=== PATIENT | female | born 1940 | race Caucasian/White ===

== ENCOUNTER 2017-02-09 17:16 | Inpatient (IN) | payer MEDICARE, OTHER ==
[~2017-02-09 17:16] MED LIST: ISOVUE-370 76%-LOCM 1 ML ONE
[2017-02-09] MEDS ORDERED: Albuterol Sulfate 2.5 mg/3 ml Neb ONE (17:45)
[2017-02-09] MEDS ORDERED: Albuterol Sulfate 2.5 mg/0.5 ml Neb ONE (17:45)
[2017-02-09] MEDS ORDERED: Dexamethasone 10 MG/ML VIAL ONE (17:48)
[2017-02-09 17:52] LABS: Oxyhemoglobin 93.1 % (94.0-97.0); Sodium 142 mmol/L (135-148)
[2017-02-09 17:54] LABS: Mode NRB; Vent NO
[2017-02-09] MEDS ORDERED: Magnesium 2 GM/NS 0.9% 50 ML 2 GM in Premix Bag 1 BAG IVPB ONE (18:00)
[2017-02-09 18:18] LABS: PTT 29.4 SEC (22.9-36.1)
[2017-02-09 18:22] LABS: Prothrombin Time 12.7 SEC (12.0-14.7)
[2017-02-09 18:34] LABS: #Eosinphils 0.2 thou/uL (0.0-0.7); #Lymphocytes 0.9 thou/uL (1.20-3.40); #Monocytes 0.6 thou/uL (0.11-0.59); %Basophils 0.4 % (0.0-1.0); %Eosinophils 1.9 % (0.0-10.0); %Lymphocytes 10.2 % (21.0-51.0); Hematocrit 39.4 % (36.0-47.0); Mean Platelet Volume 9.3 fL (7.4-10.4); Red Blood Cell (RBC) Count 4.45 mill/uL (4.20-5.40); White Blood Cell (WBC) Count 8.7 thou/uL (4.8-10.8)
[2017-02-09 18:38] LABS: Troponin I Less than 0.010 ng/mL (< 0.028)
[2017-02-09 19:39] LABS: Oxyhemoglobin 88.8 % (94.0-97.0); Sodium 141 mmol/L (135-148)
[2017-02-09 19:41] LABS: Modified Allen's Test POSITIVE; Vent YES
[2017-02-09 19:44] LABS: ALT (SGPT) 23 U/L (8-55); AST (SGOT) 46 U/L (5-34); Alkaline Phosphatase 84 U/L (40-150); Anion Gap 15 mmol/L (10-20); BUN (Urea Nitrogen) 21 mg/dL (9.8-20.1); Bilirubin, Total 0.4 mg/dL (0.2-1.2); CK (CPK) 24 U/L (29-168); Calc. Creatinine Clearance 0 mL/min (70-130); Calcium 8.5 mg/dL (7.8-10.44); Carbon Dioxide 34 mmol/L (23-31); Chloride 96 mmol/L (98-107); Estimated GFR-MDRD 50; Globulin 2.8 g/dL (2.4-3.5); Lipase Less than 4 U/L (8-78)
[2017-02-09] MEDS ORDERED: Water For Inject, Bacteriostat 30 ML ONE (19:44)
[2017-02-09] MEDS ORDERED: Vecuronium 10 MG VIAL ONE (19:44)
[2017-02-09] MEDS ORDERED: Fentanyl 20 MCG/ML 250 ML ONE (20:10)
[2017-02-09 20:16] LABS: PIP 11 cmH2O; Spontaneous Rate 26 min
[2017-02-09 20:30] LABS: Bilirubin Negative (Negative); Blood, Urine Negative (Negative); Glucose, Urine (Dipstick) Negative (Negative); Ketone, Urine Negative (Negative); Nitrite Negative (Negative); Protein, Urine (Dipstick) Trace mg/dL (Neg-Trace); Urobilinogen 0.2 mg/dL (0.2-1.0)
[2017-02-09 20:33] LABS: Bacteria/HPF 4+ HPF (None Seen); Hyaline Casts/LPF 7-10 HYALINE CAST LPF (0-3 Hyaline)
[2017-02-09 20:41] LABS: RBC/HPF 0-3 HPF (0-3)
--- NOTE | 2017-02-09 21:10 | RAD ---
ONE VIEW CHEST: HISTORY: Dyspnea. COMPARISON: 06/13/2014 FINDINGS: Stable left-sided defibrillator. Atherosclerosis of the aorta is noted. The heart is enlarged. The pulmonary vessels are slightly prominent. Diminished lung volumes. There are pleural and parenchym al changes in the left lung base. Patchy interstitial opacity in the right lung base. No pneumothor ax. Chronic changes to both shoulders. IMPRESSION: Pleural and parenchymal changes in the left lung base. Interstitial opacity in the right lung base. Continued surveillance. POS: [facility]
[2017-02-09 21:14] LABS: Oxyhemoglobin 97.8 % (94.0-97.0); Sodium 140 mmol/L (135-148)
--- NOTE | 2017-02-09 21:46 | RAD ---
ONE VIEW CHEST: HISTORY: Dyspnea. Status post intubation. COMPARISON: 02/09/2017 FINDINGS: Portable supine chest radiograph demonstrates an endotracheal and nasogastric tube. Stable left-side d defibrillator. Persistent opacification of the left lung base. Patchy interstitial opacities thro ughout the lung parenchyma. IMPRESSION: Interval placement of endotracheal and nasogastric tube. Otherwise, no change. POS: [facility]
[2017-02-09 22:00] LABS: Mechanical Tidal Volume 500 ml; Mode SIMV; Modified Allen's Test POSITIVE; Pressure Support 10 cmH2O; Spontaneous Rate 20 min; Vent YES
--- NOTE | 2017-02-09 22:07 | CT ---
EXAM: CT ANGIOGRAM OF THE CHEST 02/09/17 HISTORY: Hypoxia. Shortness of breath. Patient is 58% on room air. COMPARISON: None. TECHNIQUE: CT angiogram of the chest is performed in the axial plain. Coronal and bilateral oblique three dimens ional reformatted images are submitted for interpretation. FINDINGS: Trachea and central bronchi are patent. There are patchy ground glass opacities predominantly in the lower lobes. Small bilateral effusions. Left greater than right consolidation likely due to bibasilar atelectasis or pneumonia. Additional consolidation with air bronchograms is noted in the middle lobe . No pneumothorax. Endotracheal and nasogastric tube are identified. The visualized upper solid organs are unremarkable. No mediastinal mass, lymphadenopathy, or hematoma. Heart is enlarged. Coronary calcifications and ca lcification in the aortic valve is noted. Visualized aorta does not demonstrate an aneurysm. No peria ortic fat stranding. Adequate contrast opacification of the pulmonary arterial system to the level of the segmental arteri es. No filling defect to suggest thromboembolism. Osteoblastic or osteolytic lesions. IMPRESSION: 1. No evidence of pulmonary artery embolism to the level of the segmental arteries. 2. Consolidation with air bronchograms of the middle lobe, right lower lobe and left lower lobe. Multilobar pneumonia or atelectasis should be considered. Small bilateral effusions are identified. 3. Cardiomegaly. POS: [facility]
--- NOTE | 2017-02-09 22:42 | PDOC.EVN ---
Event Note - Event Note Event Note: [id number] H&P Dictated 1. ACute hypercapneic respiratory failure 2. Pneumonia 3. HTN 4. barry plan;see orders
[2017-02-09] MEDS ORDERED: Lorazepam 2 MG/ML VIAL ONE (22:46)
[2017-02-09] MEDS ORDERED: Ondansetron HCl/PF 4 MG/2 ML Vial IVP PRN (23:17)
[2017-02-09] MEDS ORDERED: Sodium Chloride 0.9% 1,000 ML IV SCH (23:17)
[2017-02-09] MEDS ORDERED: Ondansetron ODT 4 MG TAB SL PRN (23:17)
[2017-02-09] MEDS ORDERED: hydrALAZINE 20 MG/ML VIAL SLOW IVP PRN (23:19)
[2017-02-09] MEDS ORDERED: Propofol 1,000 MG/100 ML VIAL IV PRN (23:20)
[2017-02-09] MEDS ORDERED: Fentanyl 20 MCG/ML 250 ML IVPB SCH (23:20)
[2017-02-09] MEDS ORDERED: DISCONTINUE PREVIOUS NARCOTIC PAIN MEDICATIONS AND BENZODIAZEPINES FS SCH (23:20)
[2017-02-09] MEDS ORDERED: Morphine 4 MG/ML VIAL IV PRN (23:21)
[2017-02-09 23:24] LABS: Mechanical Tidal Volume 500 ml; Mode SIMV; Pressure Support 10 cmH2O; Vent YES
[2017-02-09] MEDS: Sodium Chloride 0.9% 1,000 ML IV SCH ×2 (23:41→23:45)
[2017-02-09] MEDS: methylPREDNISolone Sod Succ/PF 125 MG/2 ML VIAL IVP SCH (23:50)
[2017-02-09] MEDS ORDERED: Vancomycin HCl 1.5 GM in Sodium Chloride 0.9% 250 ML 300 ML IVPB SCH (23:59)
[2017-02-10] MEDS: Azithromycin 500 MG in Sodium Chloride 0.9% 250 ML 250 ML IVPB SCH (01:27)
[2017-02-10] MEDS: Propofol 1,000 MG/100 ML VIAL IV PRN ×2 (01:27→09:32)
[2017-02-10] MEDS ORDERED: Cefepime 2 GM in Syringe 12.5 ML SLOW IVP SCH (04:00)
[2017-02-10] MEDS ORDERED: Dexamethasone 4 mg/ml Vial SLOW IVP SCH (05:00)
--- NOTE | 2017-02-10 05:38 | HP ---
DATE OF ADMISSION: 02/09/2017 CHIEF COMPLAINT: Respiratory failure. 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 History was obtained from the ED physician and from the ED nu rse as there are no family members available at this time. According to the ED physician, EMS was ca lled because the patient was having trouble breathing. Upon EMS arrival, the patient was found to be hypoxic with oxygen sats around 57%, so the patient was placed on the nasal cannula and brought to [facility] ER. In the ER, the patient was found to have hypoxic, so patient was initially placed on nonrebre ather and was transferred to home BiPAP. The patient was on BiPAP in the ER, respiratory distress. The patient became more lethargic, so patient was intubated at the ER. By the time I saw the patient , the patient is on vent support, so could not able to get much history. PAST MEDICAL HISTORY: As per HPI. PAST SURGICAL HISTORY: Per records, positive for bilateral cataract extraction, cholecystectomy, col ectomy, hernia repair, tonsillectomy, cardioversion, catheterization, AICD placement. MEDICATIONS: Reviewed. ALLERGIES: Reviewed. FAMILY HISTORY: Per chart, positive for congestive heart failure. SOCIAL HISTORY: No smoking, no alcohol, no drugs. REVIEW OF SYSTEMS: Unavailable from the patient as the patient is currently on the vent support. PHYSICAL EXAMINATION: CONSTITUTIONAL/VITAL SIGNS: At the time of H and P performed, blood pressure is 208/85, pulse ox 100 % on vent, respiratory rate 18. GENERAL: The patient is sedated. HEENT: Anterior nares patent. Oral cavity is positive for ET tube. NECK: Supple, no JVD. CARDIOVASCULAR SYSTEM: S1, S2 present. Regular rate and rhythm, no murmur, no rubs, no gallops. RESPIRATORY SYSTEM: Diminished breath sounds present bilaterally. Positive for rhonchi. No accesso ry muscle seen. GASTROINTESTINAL: Abdomen is soft, nontender, no guarding, no organomegaly, no masses felt. MUSCULOSKELETAL: No edema. CRANIAL NERVOUS SYSTEM: Awake, follows commands. Speech clear. RESPIRATORY: No wheezing, no rhonchi. GASTROINTESTINAL: Soft, nontender, no guarding, no organomegaly, no masses felt. MUSCULOSKELETAL: No edema. CRANIAL NERVE SYSTEM: Patient is lethargic, sedated, not following commands. PSYCHIATRIC: Could not able to access. INTEGUMENTARY: No obvious rashes seen. LABORATORY DATA: At the time of H and P performed, white count 8.7, hemoglobin 11.2, platelet count is 321. PT 12.7, INR 1. D-dimer 1.96. BMP shows sodium 140, potassium 4.7, chloride 96, CO2 of 34, BUN of 21, creatinine 1.08, troponin less than 0.010. BNP 121.7. Total protein 6, albumin 3.2. ASSESSMENT AND PLAN: The patient is a 76 years old female: 1. Acute respiratory failure, hypercapnic and hypoxic. We will go ahead and consult Pulmonary to ev aluate the patient. Continue vent support. We will check ABG. We will start patient on intravenous breathing treatments and intravenous steroids. 2. Acute chronic obstructive pulmonary disease exacerbation. Continue breathing treatments. Monito r respiratory status closely. 3. Hypertension. Monitor blood pressure. Continue blood pressure meds. We will start patient on p .r.n. hydralazine also. 4. Elevated D-dimer. CT chest was done in the ER, which was negative for pulmonary embolism, but po sitive for pneumonia and monitor patient closely. 5. Pneumonia. Plan to check flu test. Plan to start the patient on broad-spectrum antibiotics. Pl an to check Legionella, Strep pneumoniae and urinary antigen. The case was discussed with the patient. Patient is a FULL CODE.
[2017-02-10] MEDS: methylPREDNISolone Sod Succ/PF 125 MG/2 ML VIAL IVP SCH (05:49)
--- NOTE | 2017-02-10 07:39 | HP ---
DATE OF ADMISSION: 02/09/2017 CHIEF COMPLAINT: Dyspnea. HISTORY OF PRESENT ILLNESS: The patient is a 76-year-old female with past medical history of coronar y artery disease, respiratory failure, obstructive sleep apnea, diabetes mellitus type 2, hypertensio n, hyperlipidemia, atrial fibrillation, now came to the ER because of dyspnea. EMS was called, leslie horton of severe respiratory distress. Upon EMS arrival, the patient was found to have sats around 57%, so the patient was placed on the nonbreather and brought to the ER. In the ER, the patient was initi ally placed on the BiPAP, but the respiratory symptoms did not improve, so the patient was eventually intubated in the ER. The patient is currently on the vent support, not able to get much history. PAST MEDICAL HISTORY: As per HPI. PAST SURGICAL HISTORY: Per review of the chart, positive for hernia repair, colectomy, cholecystecto my, total knee arthroplasty, appendectomy. SOCIAL HISTORY: Per records, no smoking, no alcohol, no drugs. FAMILY HISTORY: Positive for heart problems. ALLERGIES: Reviewed. REVIEW OF SYSTEMS: Unavailable from the patient as the patient is currently on the vent support. PHYSICAL EXAMINATION: CONSTITUTIONAL/VITAL SIGNS: At the time of H&P performed, blood pressure is 207/85, pulse ox is 100% , heart rate 80. GENERAL: The patient is lethargic and in the vent support. HEENT: Anterior nares patent. Oral cavity is positive for ET tube. NECK: Supple, no JVD. CARDIOVASCULAR: S1, S2 present. Regular rate and rhythm, no murmurs, no rubs, no gallops. RESPIRATORY: Positive for rhonchi. Positive for wheezing. Positive for crackles. Diminished at th e bases. GASTROINTESTINIAL: Abdomen is soft, nontender, no guarding, no organomegaly. MUSCULOSKELETAL: No edema. CRANIAL NERVOUS SYSTEM: The patient is sedated and intubated, not following commands. PSYCHIATRIC: Not able to assess. LABORATORY DATA: At the time of H&P performed, white count 8.7, hemoglobin 11.2, platelet count is 3 21. INR 1.0. D-dimer 1.96. ABG showed pH 7.57, pCO2 35, pO2 516 on the vent support. BMP showed so dium 140, potassium 4.7, chloride 96, CO2 34, BUN 21, creatinine 1.08. UA positive for 11 to 20 WBCs . ASSESSMENT AND PLAN: The patient is a 76-year-old female. 1. Acute respiratory failure, hypercapnic and hypoxic. Continue vent support and monitor the patien t closely. Plan to consult Pulmonary to evaluate the patient. 2. Pneumonia. Plan to start the patient on broad spectrum antibiotics. Plan to check Legionella, S trep pneumoniae, and flu test also. We will follow the patient. 3. Hypertension. We will monitor blood pressure. Continue blood pressure medications. We will do p.r.n. hydralazine. 4. Diabetes mellitus type 2, monitor blood sugars with insulin sliding scale. 5. History of atrial fibrillation and chronic diastolic heart failure. Strict I's and O's. Monitor heart rate closely. The case was discussed in detail with the ED nurse and ED physician also, there is no family member a vailable at this time. We will monitor the patient closely.
[2017-02-10 07:59] LABS: Oxyhemoglobin 95.7 % (94.0-97.0); Sodium 141 mmol/L (135-148)
[2017-02-10 08:00] LABS: Mechanical Tidal Volume 450 ml; Mode SIMV.PSV; Modified Allen's Test POSITIVE; Pressure Support 10 cmH2O; Vent YES
[2017-02-10] MEDS: Enoxaparin Sodium 40 MG/0.4 ML SYRINGE SC SCH (09:31)
[2017-02-10] MEDS: Lorazepam 2 MG/ML VIAL SLOW IVP PRN ×2 (10:55→18:13)
--- NOTE | 2017-02-10 11:13 | CON ---
DATE OF CONSULTATION: 02/10/2017 HISTORY: The patient is a 76-year-old female who sees Dr. Blake, presented to the ER with progress dao respiratory failure, unresponsive to usual medication at home, neb treatments and noninvasive tiesha tilation. Progressive hypoxemia necessitated intubation as per the ER note. O2 sats were 58% on room air via E [facility], they brought her, went in the 80s and 90s. She was placed on BiPAP in the ER. Apparently she di d not tolerate it, became additionally agitated and hypoxic, was intubated. She is now on the vent. Numerous admissions to the hospital. PAST MEDICAL HISTORY: Past history of cardiac arrest with ventricular tachycardia requiring AICD in place, respiratory failure, renal failure, obstructive sleep apnea, diabetes, hypertension, COPD, obe sity, encephalopathy. PAST SURGICAL HISTORY: Extensively and well outlined including multiple surgeries, AICD 2014, append ix, knee, tonsils, hernia, gallbladder, colectomy, cataracts. MEDICATIONS FROM HOME: Includes presumed prednisone 10, hydralazine 25, inhalers, Singulair 10, meto prolol 50, eye drops, Imdur 30, DuoNebs, Cymbalta 60, Diamox 250, Xanax. ALLERGIES: URMILA, CODEINE and SULFA. REVIEW OF SYSTEMS: Unobtainable. PHYSICAL EXAMINATION: VITAL SIGNS: Blood pressure 129/40, respirations 18. She is sedated on Diprivan and fentanyl. The nurse was told to decrease her sedation. CHEST: Decreased breath sounds, no wheezing. CARDIAC: Normal S1-S2. No gallops. ABDOMEN: Soft, no masses. LABORATORY: PO2 is 77, pCO2 34.45 on a rate of 14, 30%, 450 tidal volume, PEEP of 5. Urine shows so me UTI. X-ray was otherwise no acute infiltrates were seen. White count 8000, H&H 11 and 39, platelet count 321. Chemistry profile shows unremarkable values, no rmal BUN and creatinine. BNP is 128. IMPRESSION: 1. Acute on chronic respiratory failure. 2. Severe deconditioning. 3. Obesity. PLAN: Continue steroids, neb treatments, supportive care. Wean when stable. Probably start nutriti on in the next 24-48 hours. I will follow. Forty-five minute critical care time. Notify Dr. Blake.
--- NOTE | 2017-02-10 15:16 | PDOC.PN ---
- Subjective Encounter Start Date: 02/10/17 Encounter Start Time: 15:00 Subjective: f/u for acute resp failure due to multilobar PNA. Currently on mech vent -: tx with Zithromax, Cefepime and Vancomycin. No new events reported. - Objective MAR Reviewed: Yes Vital Signs & Weight: Vital Signs (12 hours) Temp Pulse Resp BP Pulse Ox 02/10/17 14:42 76 130/42 L 02/10/17 14:40 72 15 98 02/10/17 12:00 15 02/10/17 11:13 81 132/50 L 02/10/17 11:12 82 18 96 02/10/17 08:00 99.2 F 76 14 99 02/10/17 07:00 99.2 F 02/10/17 06:51 75 125/42 L 02/10/17 06:49 73 15 99 02/10/17 05:00 99.8 F H 02/10/17 04:00 97.9 F 02/10/17 03:31 14 Weight Admit Weight 187 lb 9.6 oz Weight 187 lb 9.6 oz Most Recent Monitor Data Heart Rate from ECG 75 NIBP 130/40 NIBP BP-Mean 82 Respiration from ECG 15 SpO2 98 I&O: 02/09/17 02/10/17 02/11/17 06:59 06:59 06:59 Intake Total 781.2 0 Output Total 2240 180 Balance -1458.8 -180 Result Diagrams: 02/09/17 18:03 02/09/17 19:08 Radiology Reviewed by me: Yes (PCXR - lines/tubes in place, patchy infiltrates diffusely) EKG Reviewed by me: Yes (Tele - A-fib in 70's) Phys Exam - Physical Examination Constitutional: NAD sedate on mech vent ETT/NGT in place HEENT: oral pharynx no lesions Neck: no JVD, supple diminished in bases Respiratory: no wheezing Cardiovascular: irregular Gastrointestinal: soft, non-tender, no distention, positive bowel sounds Musculoskeletal: no edema, pulses present sedate on mech ventilation Skin: normal turgor, cap refill <2 seconds Deviation from normal: Bains in place with sade urine Dx/Plan (1) Acute and chronic respiratory failure ([id number]) Code(s): J96.20 - ACUTE AND CHR RESP FAILURE, UNSP W HYPOXIA OR HYPERCAPNIA Status: Acute Qualifiers: Respiratory failure complication: hypoxia and hypercapnia Qualified Code(s) : J96.21 - Acute and chronic respiratory failure with hypoxia; J96.22 - Acute and chronic respiratory failure with hypercapnia; J96.22 - Acute and chronic respiratory failure with hypercapnia; J96.22 - Acute and chronic respiratory failure with hypercapnia Comment: Continue SIMV and wean as clinically indicated, Solumedrol 40mg IV q6h , [place] (2) Pneumonia Code(s): J18.9 - PNEUMONIA, UNSPECIFIED ORGANISM Status: Acute Comment: Multilobar involvement, continue Cefepime/Vancomycin and Zithromax, await final cx results, continue mech ventilation (3) UTI (urinary tract infection) Status: Acute Comment: UCx with E. coli, continue Cefepime pending final sensitivities (4) Morbid obesity Code(s): E66.01 - MORBID (SEVERE) OBESITY DUE TO EXCESS CALORIES Status: Chronic (5) Atrial fibrillation Code(s): I48.91 - UNSPECIFIED ATRIAL FIBRILLATION Status: Chronic Qualifiers: Atrial fibrillation type: chronic Qualified Code(s): I48.2 - Chronic atrial fibrillation Comment: Rate controlled currently, resume Amiodarone - Plan continue antibiotics, adoption social worker, respiratory therapy, DVT proph w/SCDs Continue aggressive pulmonary support -: Continue SIMV -: Continue Cefepime, Vancomycin and Zithromax -: Solumedrol 40mg IV q6h -: AM lab: BMP, CBC, ABG * PCXR in am
[2017-02-10] MEDS: Sodium Chloride 0.9% 1,000 ML IV SCH (17:06)
[2017-02-10] MEDS: Famotidine/PF 20 mg/2ml Vial SLOW IVP SCH (21:48)
[2017-02-10] MEDS ORDERED: Sterile Water 10 ML ONE (23:31)
[2017-02-10] MEDS ORDERED: Vancomycin HCl 1.25 GM in Sodium Chloride 0.9% 250 ML 300 ML IVPB SCH (23:59)
[2017-02-11] MEDS: Propofol 1,000 MG/100 ML VIAL IV PRN ×3 (00:36→21:44)
[2017-02-11] MEDS: Azithromycin 500 MG in Sodium Chloride 0.9% 250 ML 250 ML IVPB SCH (02:30)
[2017-02-11] MEDS: Cefepime 2 GM in Syringe 12.5 ML SLOW IVP SCH (04:31)
[2017-02-11 05:36] LABS: Anion Gap 16 mmol/L (10-20); BUN (Urea Nitrogen) 38 mg/dL (9.8-20.1); Calc. Creatinine Clearance 46 mL/min (70-130); Calcium 8.5 mg/dL (7.8-10.44); Carbon Dioxide 29 mmol/L (23-31); Chloride 101 mmol/L (98-107); Estimated GFR-MDRD 36
[2017-02-11 05:41] LABS: Hematocrit 32.8 % (36.0-47.0); Hypochromia SLIGHT = 6-15 cells (100X) (0-5/hpf); Mean Platelet Volume 9.2 fL (7.4-10.4); Neutrophil 93 % (42-75); Red Blood Cell (RBC) Count 3.84 mill/uL (4.20-5.40); White Blood Cell (WBC) Count 9.2 thou/uL (4.8-10.8)
[2017-02-11] MEDS ORDERED: Sterile Water 10 ML ONE (06:32)
[2017-02-11 06:34] LABS: Oxyhemoglobin 88.5 % (94.0-97.0); Sodium 143 mmol/L (135-148)
[2017-02-11 06:37] LABS: Mechanical Tidal Volume 450 ml; Mode SIMV; Modified Allen's Test POSITIVE; Pressure Support 10 cmH2O; Vent YES
--- NOTE | 2017-02-11 08:10 | CON ---
DATE OF SERVICE: 02/11/2017 Thirty-five minutes critical care time. The patient remains intubated on mechanical ventilation. She is currently heavily sedated on propofo l and fentanyl. PHYSICAL EXAMINATION: VITAL SIGNS: Temperature is 97.9, pulse 67, blood pressure 121/52. She is on no vasopressors. Tota l intake for 24 hours 2440, output 640. Weight 194 pounds. HEENT: Unremarkable. NECK: No JVD or bruits. LUNGS: Generalized poor air movement without active wheezing. CARDIOVASCULAR: S1, S2 regular. ABDOMEN: Soft and nontender. EXTREMITIES: No edema. LABORATORY DATA: White blood cell count 9.2, hematocrit 32.8, platelet count 216, pH 7.36, pCO2 58, pO2 59 on SIMV rate 10, tidal volume 450, PEEP 5, pressure 10, FiO2 25%. Sodium 142, potassium 3.6, chloride 101, CO2 29, BUN 30, creatinine 1.4, glucose 158. Chest x-ray is difficult to read the film as the patient is very twisted. I do not see any acute inf iltrates. ASSESSMENT: 1. Chronic obstructive pulmonary disease exacerbation. 2. Acute respiratory failure requiring mechanical ventilation. PLAN: Hold sedation and reassess the possibility of extubating the patient by performing a spontaneo us breathing trial. She is continuing antibiotic therapy, although I would probably stop the vancomy elaine since nothing is growing out on her cultures.
[2017-02-11] MEDS: ALPRAZolam 0.25 MG TAB PER TUBE SCH ×3 (09:04→21:20)
[2017-02-11] MEDS: Enoxaparin Sodium 40 MG/0.4 ML SYRINGE SC SCH (09:04)
[2017-02-11] MEDS: Sodium Chloride 0.9% 1,000 ML IV SCH ×2 (09:05→21:23)
[2017-02-11] MEDS: Haloperidol Lactate 5 MG/ML VIAL IM PRN ×3 (09:06→18:09)
--- NOTE | 2017-02-11 09:48 | RAD ---
PORTABLE SEMI UPRIGHT FRONTAL CHEST RADIOGRAPH: Date: 02-11-17 Comparison: 02-09-17 History: Respiratory failure. FINDINGS: Endotracheal tube, nasogastric tube, transvenous AICD stable. Severe bilateral shoulder degenerative change. Rotation to the left limits detailed assessment. There is right hilar prominence which could be vascular in nature or could represent underlying lymphadenopathy. There is dense opacity within th e left lung base suggesting left pleural fluid, left lower lobe consolidation and/or left lower lobe collapse. IMPRESSION: No significant interval change. Follow up PA and lateral chest imaging to document resolution advised when the patient is able. POS: [facility]
[2017-02-11] MEDS: Lorazepam 2 MG/ML VIAL SLOW IVP PRN (12:41)
--- NOTE | 2017-02-11 18:51 | PDOC.PN ---
- Subjective Encounter Start Date: 02/11/17 Encounter Start Time: 15:00 Subjective: f/u for acute hypoxic resp failure due to COPD exacerbation on [facility] vent -: with SIMV 35% FIO2. - Objective MAR Reviewed: Yes Vital Signs & Weight: Vital Signs (12 hours) Temp Pulse Resp BP Pulse Ox 02/11/17 18:06 84 150/70 H 02/11/17 17:53 12 02/11/17 16:00 10 L 02/11/17 14:52 61 138/55 L 02/11/17 14:00 16 02/11/17 12:00 14 02/11/17 10:28 69 129/47 L 02/11/17 10:00 13 02/11/17 08:00 98.5 F 90 15 98 Weight Admit Weight 187 lb 9.6 oz Weight 194 lb 0.108 oz Most Recent Monitor Data Heart Rate from ECG 77 NIBP 150/70 NIBP BP-Mean 88 Respiration from ECG 19 SpO2 80 I&O: 02/10/17 02/11/17 02/12/17 06:59 06:59 06:59 Intake Total 781.2 2449.8 1180.8 Output Total 2240 640 415 Balance -1458.8 1809.8 765.8 Result Diagrams: 02/11/17 03:36 02/11/17 03:36 Additional Labs: Microbiology 02/09/17 20:16 Urine mueller catheter Urine Culture - Final Escherichia coli 02/09/17 19:17 Nasal swab Influenza Types A,B Direct EIA - Final 02/10/17 11:20 Tracheal - Aspirate Respiratory Culture - Preliminary 02/09/17 20:16 Urine mueller catheter Urine Culture - Preliminary Escherichia coli 02/09/17 18:13 Venous blood - Left Arm Blood Culture - Preliminary Specimen has been received and culture in progress. No Growth to date. 02/09/17 18:13 Venous blood - Left Arm Blood Culture - Preliminary NO GROWTH AT 48 HOURS 02/09/17 18:03 Venous blood - Right Hand Blood Culture - Preliminary Specimen has been received and culture in progress. No Growth to date. 02/09/17 18:03 Venous blood - Right Hand Blood Culture - Preliminary NO GROWTH AT 48 HOURS Laboratory Tests 06/13/14 02/09/17 02/09/17 08:28 18:03 18:03 Hgb 11.2 L BUN Creatinine B-Natriuretic Peptide 221.4 H 121.7 H 02/09/17 19:08 Hgb BUN 21 H Creatinine 1.08 B-Natriuretic Peptide Radiology Reviewed by me: Yes (PCXR - LLL consolidation, chronic changes bilat, ETT in place) EKG Reviewed by me: Yes (Tele - A-fib in 80's) Phys Exam - Physical Examination sedate on mech vent ETT in place Neck: no JVD, supple diminished in bases tachycardic Gastrointestinal: soft, non-tender, no distention, positive bowel sounds Musculoskeletal: no edema, pulses present Skin: normal turgor, cap refill <2 seconds Dx/Plan (1) Acute and chronic respiratory failure ([id number]) Code(s): J96.20 - ACUTE AND CHR RESP FAILURE, UNSP W HYPOXIA OR HYPERCAPNIA Status: Acute Qualifiers: Respiratory failure complication: hypoxia and hypercapnia Qualified Code(s) : J96.21 - Acute and chronic respiratory failure with hypoxia; J96.22 - Acute and chronic respiratory failure with hypercapnia; J96.22 - Acute and chronic respiratory failure with hypercapnia; J96.22 - Acute and chronic respiratory failure with hypercapnia Comment: Continue SIMV and wean as clinically indicated, Solumedrol 40mg IV q6h , Duonebs (2) Pneumonia Code(s): J18.9 - PNEUMONIA, UNSPECIFIED ORGANISM Status: Acute Comment: Multilobar involvement, continue Cefepime and Zithromax, await final cx results , continue mech ventilation (3) UTI (urinary tract infection) Status: Acute Comment: UCx with E. coli, add Meropenem due to MDR organism (4) Morbid obesity Code(s): E66.01 - MORBID (SEVERE) OBESITY DUE TO EXCESS CALORIES Status: Chronic (5) Atrial fibrillation Code(s): I48.91 - UNSPECIFIED ATRIAL FIBRILLATION Status: Chronic Qualifiers: Atrial fibrillation type: chronic Qualified Code(s): I48.2 - Chronic atrial fibrillation Comment: Rate controlled currently, resume Amiodarone - Plan mueller catheter, continue antibiotics, respiratory therapy, DVT proph w/SCDs Continue aggressive pulm support -: Duonebs, Solumedrol -: Add Meropenem due to MDR E. coli -: Wean mech vent as clinically indicated -: AM lab: BMP, CBC * PCXR in am
[2017-02-11] MEDS: MEROPENEM 1 GM/50 ML 1 GM in Premix Bag 1 BAG IVPB SCH (21:20)
[2017-02-11] MEDS: Famotidine/PF 20 mg/2ml Vial SLOW IVP SCH (21:20)
[2017-02-11] MEDS ORDERED: Meropenem 1 GM in Sodium Chloride 0.9% 100 ML IVPB SCH (22:00)
[2017-02-11] MEDS ORDERED: Vancomycin HCl 1.25 GM in Sodium Chloride 0.9% 250 ML 250 ML IVPB SCH (23:59)
[2017-02-12] MEDS: Lorazepam 2 MG/ML VIAL SLOW IVP PRN ×2 (00:05→16:26)
[2017-02-12] MEDS: Azithromycin 500 MG in Sodium Chloride 0.9% 250 ML 250 ML IVPB SCH (01:12)
[2017-02-12] MEDS: Propofol 1,000 MG/100 ML VIAL IV PRN ×6 (02:14→23:19)
[2017-02-12] MEDS: Cefepime 2 GM in Syringe 12.5 ML SLOW IVP SCH (04:14)
[2017-02-12 04:59] LABS: Anion Gap 7 mmol/L (10-20); BUN (Urea Nitrogen) 31 mg/dL (9.8-20.1); Calc. Creatinine Clearance 85 mL/min (70-130); Calcium 8.3 mg/dL (7.8-10.44); Carbon Dioxide 33 mmol/L (23-31); Chloride 105 mmol/L (98-107); Estimated GFR-MDRD 69
[2017-02-12 05:19] LABS: Band 2 % (5-11); Hematocrit 32.8 % (36.0-47.0); Mean Platelet Volume 9.3 fL (7.4-10.4); Neutrophil 94 % (42-75); Red Blood Cell (RBC) Count 3.84 mill/uL (4.20-5.40); White Blood Cell (WBC) Count 10.5 thou/uL (4.8-10.8)
[2017-02-12] MEDS: MEROPENEM 1 GM/50 ML 1 GM in Premix Bag 1 BAG IVPB SCH ×3 (05:27→22:48)
[2017-02-12 06:59] LABS: Mechanical Tidal Volume 450 ml; Modified Allen's Test POSITIVE; Oxyhemoglobin 95.7 % (94.0-97.0); Pressure Support 10 cmH2O; Sodium 142 mmol/L (135-148); Vent YES
[2017-02-12 07:00] LABS: Mode SIMV/PSV
[2017-02-12] MEDS: Enoxaparin Sodium 40 MG/0.4 ML SYRINGE SC SCH (07:52)
[2017-02-12] MEDS: ALPRAZolam 0.25 MG TAB PER TUBE SCH ×3 (07:52→21:45)
[2017-02-12] MEDS: Haloperidol Lactate 5 MG/ML VIAL IM PRN ×2 (07:52→22:49)
--- NOTE | 2017-02-12 08:40 | PRG ---
DATE OF SERVICE: 02/12/2017 Thirty-five minutes critical care time. The patient remains intubated on mechanical ventilation. We have tried to wean sedation, but she bec omes very agitated and does not have spontaneous respirations with any productive tidal volume. PHYSICAL EXAMINATION: VITAL SIGNS: On exam today her temperature is 96.8, pulse 64, blood pressure 157/53. 24 hour intake 3336, output 950. HEENT: Unremarkable. NECK: No JVD. LUNGS: Poor air movement bilaterally with some wheezing. CARDIAC: S1 and S2 regular. ABDOMEN: Soft. EXTREMITIES: Trace edema. LABORATORY DATA: White blood cell count 10.5, hematocrit 32.8, platelet count 225, pH 7.42, pCO2 49, pO2 76 on SIMV rate 10, tidal volume 450, PEEP 5, pressure support 10, FiO2 35%. Sodium 142, potass ium 3.4, chloride 105, CO2 33, BUN 31, creatinine 0.8, glucose 154. Chest x-ray shows pacemaker, small left pleural effusion and some pulmonary edema bilaterally. ASSESSMENT: 1. Acute respiratory failure requiring mechanical ventilation. 2. Delirium. 3. Chronic obstructive pulmonary disease. 4. Pulmonary edema. PLAN: She is not weanable secondary to agitation. I will go ahead and add some Depakote for the mihaela tation. She continues on Haldol as needed for the delirium. I will speak with the patient's rosario sorto. The patient is continuing antibiotics. I will go ahead and stop her IV fluids and give her a dos e of diuretics. I will also try to reduce her steroid dose today.
--- NOTE | 2017-02-12 08:50 | RAD ---
AP VIEW CHEST: HISTORY: Respiratory failure, ventilator-dependent patient. FINDINGS: AP view chest is obtained on 02/12/17. Comparison is made to a previous exam from 02/11/17. AP view chest demonstrates a dual-lead intracardiac pacing device. Nasogastric and endotracheal tube s are in good position. Bilateral pleural effusions seen slightly larger on the left than on the rig ht. Cardiomegaly is seen. Pulmonary vascular congestion is seen. There is ectasia of the aorta not ed. 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 IMPRESSION: Bilateral pleural effusions slightly larger on the left than on the right. POS: OFF
[2017-02-12] MEDS ORDERED: Furosemide 20 MG/2 ML VIAL SLOW IVP SCH (09:00)
[2017-02-12] MEDS ORDERED: FLU VACC TS2017-18 (>65YR) 0.5 ML SYRINGE IM ONE (09:00)
[2017-02-12] MEDS: Divalproex Sodium 125 mg Sprinkle Capsule PER TUBE SCH ×3 (09:28→21:45)
[2017-02-12] MEDS: Famotidine/PF 20 mg/2ml Vial SLOW IVP SCH ×2 (09:29→21:45)
--- NOTE | 2017-02-12 17:12 | PDOC.PN ---
- Subjective Encounter Start Date: 02/12/17 Encounter Start Time: 17:10 Subjective: f/u for acute hypoxic resp failure with COPD exacerbation not weanable from -: mech vent. Nsg reports pt agitated often requiring multiple sedating meds. - Objective MAR Reviewed: Yes Vital Signs & Weight: Vital Signs (12 hours) Temp Pulse Resp BP Pulse Ox 02/12/17 16:07 63 162/67 H 02/12/17 13:38 61 136/51 L 02/12/17 12:00 10 L 02/12/17 11:59 98.6 F 02/12/17 10:32 60 138/55 L 02/12/17 10:00 10 L 02/12/17 08:00 98.5 F 60 10 L 98 02/12/17 06:32 62 165/56 H 02/12/17 06:00 11 L Weight Admit Weight 187 lb 9.6 oz Weight 194 lb 0.108 oz Most Recent Monitor Data Heart Rate from ECG 64 NIBP 147/57 NIBP BP-Mean 74 Respiration from ECG 22 SpO2 100 I&O: 02/11/17 02/12/17 02/13/17 06:59 06:59 06:59 Intake Total 2449.8 3336.3 130 Output Total 640 950 940 Balance 1809.8 2386.3 -810 Result Diagrams: 02/12/17 03:59 02/12/17 03:59 Additional Labs: Microbiology 02/10/17 11:20 Tracheal - Aspirate Respiratory Culture - Final 02/09/17 20:16 Urine mueller catheter Urine Culture - Final Escherichia coli 02/09/17 19:17 Nasal swab Influenza Types A,B Direct EIA - Final 02/10/17 11:20 Tracheal - Aspirate Respiratory Culture - Preliminary 02/09/17 20:16 Urine mueller catheter Urine Culture - Preliminary Escherichia coli 02/09/17 18:13 Venous blood - Left Arm Blood Culture - Preliminary Specimen has been received and culture in progress. No Growth to date. 02/09/17 18:03 Venous blood - Right Hand Blood Culture - Preliminary Specimen has been received and culture in progress. No Growth to date. 02/09/17 18:03 Venous blood - Right Hand Blood Culture - Preliminary NO GROWTH AT 48 HOURS Laboratory Tests 06/13/14 02/09/17 02/09/17 08:28 18:03 18:03 Hgb 11.2 L BUN Creatinine B-Natriuretic Peptide 221.4 H 121.7 H 02/09/17 19:08 Hgb BUN 21 H Creatinine 1.08 B-Natriuretic Peptide Radiology Reviewed by me: Yes (PCXR - line/tubes in place, L>R effusion) EKG Reviewed by me: Yes (Tele - SR in 90's) Phys Exam - Physical Examination sedate on [facility] vent ETT in place Neck: no nodes, no JVD, supple diminished in bibasilar segments, prolonged exp phase Cardiovascular: RRR Gastrointestinal: soft, non-tender, no distention, positive bowel sounds Musculoskeletal: pulses present, edema present Neurological: moves all 4 limbs Skin: normal turgor, cap refill <2 seconds Deviation from normal: Mueller with clear urine Dx/Plan (1) Acute and chronic respiratory failure ([id number]) Code(s): J96.20 - ACUTE AND CHR RESP FAILURE, UNSP W HYPOXIA OR HYPERCAPNIA Status: Acute Qualifiers: Respiratory failure complication: hypoxia and hypercapnia Qualified Code(s) : J96.21 - Acute and chronic respiratory failure with hypoxia; J96.22 - Acute and chronic respiratory failure with hypercapnia; J96.22 - Acute and chronic respiratory failure with hypercapnia; J96.22 - Acute and chronic respiratory failure with hypercapnia Comment: Continue SIMV and wean as clinically indicated, Solumedrol 40mg IV q6h , Duonebs (2) Pneumonia Code(s): J18.9 - PNEUMONIA, UNSPECIFIED ORGANISM Status: Acute Comment: Multilobar involvement, continue Cefepime and Zithromax, await final cx results , continue [facility] ventilation (3) UTI (urinary tract infection) Status: Acute Comment: UCx with E. coli, add Meropenem due to MDR organism (4) Morbid obesity Code(s): E66.01 - MORBID (SEVERE) OBESITY DUE TO EXCESS CALORIES Status: Chronic (5) Atrial fibrillation Code(s): I48.91 - UNSPECIFIED ATRIAL FIBRILLATION Status: Chronic Qualifiers: Atrial fibrillation type: chronic Qualified Code(s): I48.2 - Chronic atrial fibrillation Comment: Rate controlled currently, resume Amiodarone (6) Agitation Status: Acute Comment: multifactorial, continue Ativan, Xanax, Depakote and Propofol - Plan continue antibiotics, social group worker, respiratory therapy, DVT proph w/SCDs Continue aggressive pulm support -: Sedation to manage agitation/delirium -: Continue Cefepime and Zithromax -: Continue Meropenem for UTI, E. coli -: AM lab: BMP, CBC * .
[2017-02-13] MEDS: Azithromycin 500 MG in Sodium Chloride 0.9% 250 ML 250 ML IVPB SCH (01:34)
[2017-02-13] MEDS: Propofol 1,000 MG/100 ML VIAL IV PRN ×4 (03:20→17:51)
[2017-02-13 04:18] LABS: Anion Gap 14 mmol/L (10-20); BUN (Urea Nitrogen) 30 mg/dL (9.8-20.1); Calc. Creatinine Clearance 90 mL/min (70-130); Calcium 8.8 mg/dL (7.8-10.44); Carbon Dioxide 31 mmol/L (23-31); Chloride 103 mmol/L (98-107); Estimated GFR-MDRD 74
[2017-02-13] MEDS: Cefepime 2 GM in Syringe 12.5 ML SLOW IVP SCH (04:38)
[2017-02-13] MEDS: Haloperidol Lactate 5 MG/ML VIAL IM PRN (04:41)
[2017-02-13 05:30] LABS: Band 2 % (5-11); Hematocrit 37.2 % (36.0-47.0); Mean Platelet Volume 8.8 fL (7.4-10.4); Neutrophil 87 % (42-75); Red Blood Cell (RBC) Count 4.35 mill/uL (4.20-5.40); White Blood Cell (WBC) Count 13.6 thou/uL (4.8-10.8)
[2017-02-13] MEDS: MEROPENEM 1 GM/50 ML 1 GM in Premix Bag 1 BAG IVPB SCH ×3 (05:53→22:50)
[2017-02-13] MEDS: Divalproex Sodium 125 mg Sprinkle Capsule PER TUBE SCH ×3 (08:39→20:24)
[2017-02-13] MEDS: ALPRAZolam 0.25 MG TAB PER TUBE SCH (08:39)
[2017-02-13] MEDS: Famotidine/PF 20 mg/2ml Vial SLOW IVP SCH ×2 (08:39→20:24)
[2017-02-13] MEDS: Enoxaparin Sodium 40 MG/0.4 ML SYRINGE SC SCH (08:40)
[2017-02-13] MEDS ORDERED: ALPRAZolam 0.25 MG TAB PER TUBE PRN (09:07)
--- NOTE | 2017-02-13 09:22 | PRG ---
DATE OF SERVICE: 02/13/2017 SERVICE: Pulmonary Medicine. INTERVAL HISTORY: The patient is extraordinarily agitated. Anytime we attempted barely reduce her p ropofol, she comes out of the bed. She cannot provide any additional elements of the history, becaus e of sedation at this time. Otherwise, there has been no interval change to her condition and no acu te events overnight. PHYSICAL EXAMINATION: VITAL SIGNS: Afebrile. Pulse 72, blood pressure 118/47, respirations 10, saturation 99% on 37%. GENERAL: Patient is intubated and sedated. HEENT: Normocephalic, atraumatic. Sclerae are white, conjunctivae pink. Oral and nasal mucosa is m oist without lesions. LUNGS: Reduced air entry with prolonged expiratory phase. Wheezing and crackles are both present. HEART: Normal rate, regular. ABDOMEN: Soft, nontender, nondistended. Bowel sounds are positive. MUSCULOSKELETAL: No cyanosis or clubbing. There is diffuse 1-2+ throughout. GENITOURINARY: Bains catheter in place. NEUROLOGIC: Grossly nonfocal. She is moving all 4 extremities. LABORATORY DATA: WBC 13.6, hemoglobin 10.8, platelets 257,000. Neutrophils 87%. INR 1.0. PH 7.42, pCO2 49, pO2 76. Basic metabolic profile is completely unremarkable. Potassium 3.7. E. coli is fa irly resistant growing in the urine. Respiratory cultures are negative. Blood cultures x2 are negat dao. IMAGING: Chest x-ray demonstrates endotracheal tube in good position. There is an enteric catheter coursing below the level of the diaphragm. Left-sided pleural effusion is likely present. There is decreased lung volumes on the right. ASSESSMENT: 1. Acute hypoxic and hypercapnic respiratory failure. 2. Chronic obstructive pulmonary disease with acute exacerbation. 3. Bilateral pleural effusions. 4. Delirium. PLAN: We will give her Seroquel and Klonopin scheduled. I am going to get rid of the Haldol. Dexmed etomidine will be attempted for a short period of time and if this proves effective, we will favor th is as opposed to the other medications. Potassium will be replaced. I will check a magnesium and ph osphorus tomorrow morning. Pulmonary Critical Care will continue to follow while she remains in this location, but she is certainly not weanable at this time, because of mentation issues. CRITICAL CARE TIME: 30 minutes.
[2017-02-13] MEDS ORDERED: Furosemide 20 MG/2 ML VIAL SLOW IVP SCH (09:30)
[2017-02-13] MEDS ORDERED: clonazePAM 1 MG TAB PO SCH (09:30)
--- NOTE | 2017-02-13 09:58 | RAD ---
1 VIEW CHEST: Date: 02/13/17 COMPARISON: 02/12/17. HISTORY: Respiratory distress. Ventilated patient. FINDINGS: Redemonstration of endotracheal tube, nasogastric tube, and left-sided defibrillator. Persistent card iomegaly. Worsening bibasilar opacification due to pleural and parenchymal changes. No pneumothorax. Stable degenerative changes both shoulders. IMPRESSION: Worsening bibasilar opacification. Continued surveillance. POS: [facility]
[2017-02-13] MEDS ORDERED: ISOVUE-370 76%-LOCM 1 ML ONE (11:43)
--- NOTE | 2017-02-13 17:15 | PDOC.PN ---
- Subjective Encounter Start Date: 02/13/17 Encounter Start Time: 17:00 Subjective: f/u for acute hypoxic resp failure/COPD exacerbation on [facility] ventilation. -: Remains unweanable due to sedation/agitation/delirium. - Objective MAR Reviewed: Yes Vital Signs & Weight: Vital Signs (12 hours) Temp Pulse Resp BP Pulse Ox 02/13/17 16:00 97.8 F 17 02/13/17 15:35 64 121/48 L 02/13/17 14:00 10 L 02/13/17 12:00 98.0 F 10 L 02/13/17 10:36 66 131/48 L 02/13/17 10:00 15 02/13/17 08:00 98.2 F 66 10 L 94 L 02/13/17 07:25 72 118/47 L 02/13/17 06:00 10 L Weight Admit Weight 187 lb 9.6 oz Weight 200 lb 6.403 oz Most Recent Monitor Data Heart Rate from ECG 95 NIBP 147/70 NIBP BP-Mean 95 Respiration from ECG 26 SpO2 93 I&O: 02/12/17 02/13/17 02/14/17 06:59 06:59 06:59 Intake Total 3336.3 1659 Output Total 950 1600 1015 Balance 2386.3 59 -1015 Result Diagrams: 02/13/17 04:19 02/13/17 03:45 Additional Labs: Microbiology 02/10/17 11:20 Tracheal - Aspirate Respiratory Culture - Final 02/09/17 20:16 Urine mueller catheter Urine Culture - Final Escherichia coli 02/09/17 19:17 Nasal swab Influenza Types A,B Direct EIA - Final 02/10/17 11:20 Tracheal - Aspirate Respiratory Culture - Preliminary 02/09/17 20:16 Urine mueller catheter Urine Culture - Preliminary Escherichia coli 02/09/17 18:13 Venous blood - Left Arm Blood Culture - Preliminary Specimen has been received and culture in progress. No Growth to date. 02/09/17 18:03 Venous blood - Right Hand Blood Culture - Preliminary Specimen has been received and culture in progress. No Growth to date. 02/09/17 18:03 Venous blood - Right Hand Blood Culture - Preliminary NO GROWTH AT 48 HOURS Laboratory Tests 06/13/14 02/09/17 02/09/17 08:28 18:03 18:03 WBC Hgb 11.2 L Neutrophils % (Manual) BUN Creatinine B-Natriuretic Peptide 221.4 H 121.7 H 02/09/17 02/12/17 19:08 03:59 WBC 10.5 Hgb Neutrophils % (Manual) 94 H BUN 21 H Creatinine 1.08 B-Natriuretic Peptide Radiology Reviewed by me: Yes (PCXR - bibasilar opacifications) EKG Reviewed by me: Yes (Tele - SR in 80's) Phys Exam - Physical Examination agitated, tremulous minimally reactive pupils, does not track, ETT in place Neck: no JVD, supple coarse sounds bilat Cardiovascular: RRR Gastrointestinal: soft, non-tender, no distention, positive bowel sounds Musculoskeletal: pulses present, edema present generalized tremors, repetitive R hand movement Skin: normal turgor, cap refill <2 seconds Dx/Plan (1) Acute and chronic respiratory failure ([id number]) Code(s): J96.20 - ACUTE AND CHR RESP FAILURE, UNSP W HYPOXIA OR HYPERCAPNIA Status: Acute Qualifiers: Respiratory failure complication: hypoxia and hypercapnia Qualified Code(s) : J96.21 - Acute and chronic respiratory failure with hypoxia; J96.22 - Acute and chronic respiratory failure with hypercapnia; J96.22 - Acute and chronic respiratory failure with hypercapnia; J96.22 - Acute and chronic respiratory failure with hypercapnia Comment: Continue SIMV and wean as clinically indicated, Solumedrol 40mg IV q6h , Duonebs (2) Pneumonia Code(s): J18.9 - PNEUMONIA, UNSPECIFIED ORGANISM Status: Acute Comment: Multilobar involvement, continue Cefepime and Zithromax, await final cx results , continue mech ventilation (3) UTI (urinary tract infection) Status: Acute Comment: UCx with E. coli, add Meropenem due to MDR organism (4) Morbid obesity Code(s): E66.01 - MORBID (SEVERE) OBESITY DUE TO EXCESS CALORIES Status: Chronic (5) Atrial fibrillation Code(s): I48.91 - UNSPECIFIED ATRIAL FIBRILLATION Status: Chronic Qualifiers: Atrial fibrillation type: chronic Qualified Code(s): I48.2 - Chronic atrial fibrillation Comment: Rate controlled currently, resume Amiodarone (6) Agitation Status: Acute Comment: multifactorial, continue Ativan, Xanax, Depakote and Propofol (7) Encephalopathy acute Code(s): G93.40 - ENCEPHALOPATHY, UNSPECIFIED Status: Acute Comment: multifactorial given resp failure, ICU stay, metabolic influence and hypoxia, supportive mgmt, Consult Neurology to assess, may need to r/o potential seizure- like activity - Plan continue antibiotics, case management social worker, speech therapy, respiratory therapy, DVT proph w/SCDs Continue aggressive pulm support -: Consult Neurology service -: Continue Zithromax/Meropenem -: Solumedrol 40mg IV daily -: Limit sedation as clinically able * AM lab: Mg++, PO3 * Check CT brain today
[2017-02-13] MEDS: clonazePAM 1 MG TAB PO SCH (20:24)
--- NOTE | 2017-02-13 22:14 | CT ---
HEAD CT WITH CONTRAST 02/13/17 COMPARISON: None. HISTORY: Delirium and encephalopathy. TECHNIQUE: Serial axial CT imaging at 5 mm intervals from vertex through skull base with IV contrast. FINDINGS: The presence of IV contrast limits detailed assessment for subarachnoid hemorrhage. No intra-axial he morrhage, midline shift or mass effect. Imaged paranasal sinuses/mastoid air cells are well aerated. No displaced calvarial fracture. IMPRESSION: No acute findings. POS: [facility]
[2017-02-14] MEDS: Azithromycin 500 MG in Sodium Chloride 0.9% 250 ML 250 ML IVPB SCH (01:51)
[2017-02-14] MEDS: Propofol 1,000 MG/100 ML VIAL IV PRN (02:05)
[2017-02-14] MEDS: MEROPENEM 1 GM/50 ML 1 GM in Premix Bag 1 BAG IVPB SCH ×3 (05:12→20:34)
[2017-02-14 05:39] LABS: Magnesium 1.9 mg/dL (1.6-2.6); Phosphorus 2.7 mg/dL (2.3-4.7)
[2017-02-14] MEDS ORDERED: Furosemide 20 MG/2 ML VIAL SLOW IVP SCH (06:00)
[2017-02-14] MEDS: Famotidine/PF 20 mg/2ml Vial SLOW IVP SCH ×2 (08:22→20:33)
[2017-02-14] MEDS: clonazePAM 1 MG TAB PO SCH (08:22)
[2017-02-14] MEDS: Divalproex Sodium 125 mg Sprinkle Capsule PER TUBE SCH ×3 (08:22→20:32)
[2017-02-14] MEDS: Enoxaparin Sodium 40 MG/0.4 ML SYRINGE SC SCH (08:23)
[2017-02-14] MEDS: Furosemide 20 MG/2 ML VIAL SLOW IVP SCH ×2 (11:55→20:32)
--- NOTE | 2017-02-14 11:57 | PRG ---
DATE OF SERVICE: 02/14/2017 SERVICE: Pulmonary Medicine. INTERVAL HISTORY: The patient seems to really like dexmedetomidine. This has made her very level. Whenever we hold sedation, she does not wake up with severe agitation any more. As such, we can more comfortably look at what she is doing with her breathing. She remains extraordinarily weak. On a s pontaneous breathing trial, she only pools 200-250 mL of volume. That being said, she indicates she is breathing comfortably under those circumstances. PHYSICAL EXAMINATION: VITAL SIGNS: Afebrile, pulse 68, blood pressure 129/49, respirations 20, saturation 98% on 27% FIO2 and a PEEP of 5. GENERAL: The patient is awake, but somnolent. She falls back asleep in greater than 3 seconds with no stimulation. HEENT: Normocephalic, atraumatic. Sclerae are white, conjunctivae pink. Oral mucosa is moist witho ut lesions. LUNGS: Decent air entry. There is no prolonged expiratory phase. Crackles are present. HEART: Normal rate, regular. ABDOMEN: Soft, nontender, nondistended. Bowel sounds positive. MUSCULOSKELETAL: No cyanosis or clubbing. There is diffuse 2+ edema throughout. GENITOURINARY: Bains catheter in place. NEUROLOGIC: Grossly nonfocal. LABORATORY DATA: Magnesium and phosphorus fell within the normal level. Urine culture is growing E. coli which is sensitive to meropenem and Zosyn. Tracheal aspirate is negative to date. Influenza A and B is unremarkable. IMAGING: CT of the brain demonstrates no acute intracranial abnormality. ASSESSMENT: 1. Acute hypoxic and hypercapnic respiratory failure. 2. Chronic obstructive pulmonary disease with acute exacerbation. 3. Bilateral pleural effusions. 4. Anasarca. 5. Delirium. 6. Critical care weakness. 7. Debility, advanced. PLAN: I will back off on the dose of Seroquel and Klonopin during the morning. We gently wean the d exmedetomidine throughout the day and hopefully she will be more awake and alert for spontaneous shannon thing trial in the morning. I will continue diuresing the patient to euvolemia. Laboratories will b e repeated in the morning. Critical care time: 30 minutes.
--- NOTE | 2017-02-14 13:07 | PDOC.PN ---
- Subjective Encounter Start Date: 02/14/17 Encounter Start Time: 13:00 Subjective: f/u resp failure on mech vent with delirium improved weaning off -: Seroquel and Klonopin. Weaning on Pressidex. CPAP trials initiated. - Objective MAR Reviewed: Yes Vital Signs & Weight: Vital Signs (12 hours) Temp Pulse Resp BP Pulse Ox 02/14/17 12:00 97.9 F 16 02/14/17 10:00 20 02/14/17 08:00 97.7 F 73 13 99 02/14/17 06:28 61 139/57 L 02/14/17 06:00 10 L 02/14/17 04:01 62 02/14/17 04:00 97.8 F 10 L 02/14/17 02:00 10 L Weight Admit Weight 187 lb 9.6 oz Weight 202 lb 2.622 oz Most Recent Monitor Data Heart Rate from ECG 78 NIBP 147/56 NIBP BP-Mean 127 Respiration from ECG 26 SpO2 97 I&O: 02/13/17 02/14/17 02/15/17 06:59 06:59 06:59 Intake Total 1659 2357 121 Output Total 1600 1980 635 Balance 59 377 -514 Result Diagrams: 02/13/17 04:19 02/13/17 03:45 Radiology Reviewed by me: Yes (CT Brain - no acute changes) EKG Reviewed by me: Yes (Tele - SR) Phys Exam - Physical Examination opens eyes to name ETT in place HEENT: PERRLA, oral pharynx no lesions Neck: no JVD, supple diminished in bases Cardiovascular: RRR Gastrointestinal: soft, non-tender, no distention, positive bowel sounds Musculoskeletal: pulses present, edema present Neurological: moves all 4 limbs Skin: normal turgor, cap refill <2 seconds Deviation from normal: Bains with clear urine Dx/Plan (1) Acute and chronic respiratory failure ([id number]) Code(s): J96.20 - ACUTE AND CHR RESP FAILURE, UNSP W HYPOXIA OR HYPERCAPNIA Status: Acute Qualifiers: Respiratory failure complication: hypoxia and hypercapnia Qualified Code(s) : J96.21 - Acute and chronic respiratory failure with hypoxia; J96.22 - Acute and chronic respiratory failure with hypercapnia; J96.22 - Acute and chronic respiratory failure with hypercapnia; J96.22 - Acute and chronic respiratory failure with hypercapnia Comment: Continue CPAP trials and wean as clinically indicated, Solumedrol 40mg IV daily, [place] (2) Pneumonia Code(s): J18.9 - PNEUMONIA, UNSPECIFIED ORGANISM Status: Acute Comment: Multilobar involvement, continue Cefepime and Zithromax, await final cx results , continue mech ventilation (3) UTI (urinary tract infection) Status: Acute Comment: UCx with E. coli, add Meropenem due to MDR organism (4) Morbid obesity Code(s): E66.01 - MORBID (SEVERE) OBESITY DUE TO EXCESS CALORIES Status: Chronic (5) Atrial fibrillation Code(s): I48.91 - UNSPECIFIED ATRIAL FIBRILLATION Status: Chronic Qualifiers: Atrial fibrillation type: chronic Qualified Code(s): I48.2 - Chronic atrial fibrillation Comment: Rate controlled currently, resume Amiodarone (6) Agitation Status: Acute Comment: multifactorial, continue Ativan, Xanax, Depakote, off Propofol (7) Encephalopathy acute Code(s): G93.40 - ENCEPHALOPATHY, UNSPECIFIED Status: Acute Comment: multifactorial given resp failure, ICU stay, metabolic influence and hypoxia, supportive mgmt, Consult Neurology to assess, may need to r/o potential seizure- like activity - Plan continue antibiotics, professor of social work, respiratory therapy, DVT proph w/SCDs Continue critical support -: Weaning on CPAP trials -: Continue Meropenem -: Continue Solumedrol 40mg IV daily -: AM lab: BMP, CBC * .
--- NOTE | 2017-02-14 14:51 | CON ---
DATE OF CONSULTATION: 02/14/2017 TYPE OF CONSULTATION: Neurology Consultation. CONSULTING PHYSICIAN: Hospitalist Service. IMPRESSION: Transient tremors which seem to have resolved. PLAN: Recall if further problems arise. HISTORY OF PRESENT ILLNESS: Ms. Snyder is a 76-year-old white female who came in with respiratory fa ilure secondary to chronic COPD. She has been a bit agitated since admission and has received severa l different medications and the course of her treatment in the ICU. She has been on propofol, Haldol , and Klonopin. She was switched over to Precedex and has responded well. She has not had any unusu al behavior today. The nurse reports that she had some generalized tremors yesterday, but they seeme d to have resolved. PAST MEDICAL HISTORY: As per chart. ALLERGIES: URMILA INHIBITORS, CODEINE, SULFA, and TRAMADOL. FAMILY HISTORY: Not obtainable. REVIEW OF SYSTEMS: Not obtainable. MEDICATIONS: List was reviewed. PHYSICAL EXAMINATION: VITAL SIGNS: Blood pressure 147/56, pulse 68, respirations 17, saturation is 95%. HEENT: Pupils are equal and reactive. Conjunctivae clear. She is orally intubated. CERVICAL: No lymphadenopathy noted. EXTREMITIES: No cyanosis noted. NEUROLOGIC: She will awaken to verbal stimulation and she follows simple commands without any diffic ulty. She answered her questions with head nods. She denied being in any pain. She had no focal we akness noted. Sensation was grossly intact. No abnormal movements were seen. CT of the brain without contrast was unremarkable. LABORATORY STUDIES: Reviewed and unremarkable. SUMMARY: This is an elderly lady who has been on ventilatory support secondary to respiratory failur e. She has received multiple different meds. She had some transient tremors of questionable signifi cance. She seems to be doing well at this point. I would just monitor her for now.
[2017-02-14] MEDS: Acetaminophen 650 MG/20.3 ML UDCUP PO PRN (20:35)
[2017-02-14] MEDS ORDERED: clonazePAM 1 MG TAB PO SCH (21:00)
[2017-02-15] MEDS: Azithromycin 500 MG in Sodium Chloride 0.9% 250 ML 250 ML IVPB SCH (01:53)
[2017-02-15 05:20] LABS: #Eosinphils 0.1 thou/uL (0.0-0.7); #Lymphocytes 1.3 thou/uL (1.20-3.40); #Monocytes 1.7 thou/uL (0.11-0.59); #Neutrophils 9.6 thou/uL (1.40-6.50); %Basophils 0.1 % (0.0-1.0); %Eosinophils 0.8 % (0.0-10.0); %Lymphocytes 10.2 % (21.0-51.0); %Monocytes 13.4 % (0.0-10.0); Hematocrit 32.1 % (36.0-47.0); Mean Platelet Volume 9.3 fL (7.4-10.4); Red Blood Cell (RBC) Count 3.85 mill/uL (4.20-5.40); White Blood Cell (WBC) Count 12.6 thou/uL (4.8-10.8)
[2017-02-15 05:31] LABS: Anion Gap 10 mmol/L (10-20); BUN (Urea Nitrogen) 25 mg/dL (9.8-20.1); Calc. Creatinine Clearance 97 mL/min (70-130); Calcium 8.2 mg/dL (7.8-10.44); Carbon Dioxide 35 mmol/L (23-31); Chloride 103 mmol/L (98-107); Estimated GFR-MDRD 80
[2017-02-15] MEDS: MEROPENEM 1 GM/50 ML 1 GM in Premix Bag 1 BAG IVPB SCH ×3 (05:58→21:52)
[2017-02-15] MEDS: Furosemide 20 MG/2 ML VIAL SLOW IVP SCH ×2 (05:58→09:30)
[2017-02-15] MEDS ORDERED: CCU Electrolyte Replacement 1 EACH FS ONE (07:33)
[2017-02-15] MEDS ORDERED: clonazePAM 1 MG TAB PO PRN (07:36)
[2017-02-15] MEDS ORDERED: Potassium Phosphate 9 MMOL in Sodium Chloride 0.9% 100 ML IVPB PRN (07:49)
[2017-02-15] MEDS ORDERED: Magnesium 2 GM/NS 0.9% 100 ML 2 GM in Premix Bag 1 BAG IVPB PRN (07:49)
[2017-02-15] MEDS ORDERED: Potassium Phosphate 15 MMOL in Sodium Chloride 0.9% 250 ML 250 ML IV PRN (07:49)
[2017-02-15] MEDS ORDERED: Potassium Phosphate 12 MMOL in Sodium Chloride 0.9% 250 ML 250 ML IV PRN (07:49)
[2017-02-15] MEDS ORDERED: Potassium Chloride 40 MEQ in Sodium Chloride 0.9% 250 ML 250 ML IVPB PRN (07:49)
[2017-02-15] MEDS ORDERED: Magnesium Oxide 400 MG TAB PO PRN ×2 (07:49)
[2017-02-15] MEDS ORDERED: Potassium Chloride 40 MEQ in Premix Bag 1 BAG IVPB PRN (07:49)
[2017-02-15] MEDS ORDERED: Potassium Chloride 20 MEQ TAB PO PRN (07:49)
--- NOTE | 2017-02-15 07:55 | PRG ---
DATE OF SERVICE: 02/15/2017 Thirty minutes critical care time. The patient has done well with attempts at weaning to spontaneous ventilation. She has been placed o n Precedex drip and thus far was agitated. PHYSICAL EXAMINATION: VITAL SIGNS: Temperature 98.6, pulse 77, blood pressure 155/56, 24 hour intake 2407, output 4680. HEENT: Unremarkable. NECK: No JVD. CHEST: Fairly clear. CARDIAC: S1 and S2 regular. ABDOMEN: Soft. EXTREMITIES: No edema. LABORATORY DATA: Sodium 145, potassium 3.0, chloride 103, CO2 35, BUN 25, creatinine 0.7, glucose 10 4. White blood cell count 12.6, hematocrit 32.1, platelet count 37. ASSESSMENT: 1. Acute respiratory failure requiring mechanical ventilation. 2. Underlying chronic obstructive pulmonary disease. 3. Hypokalemia. 4. Severe anxiety. PLAN: 1. Extubate and observe. 2. Decrease the Lasix dose. 3. Replace potassium. 4. Tweak anxiety medications as indicated.
[2017-02-15] MEDS: Famotidine/PF 20 mg/2ml Vial SLOW IVP SCH ×2 (09:35→20:44)
[2017-02-15] MEDS: Enoxaparin Sodium 40 MG/0.4 ML SYRINGE SC SCH (10:19)
[2017-02-15] MEDS: Divalproex Sodium 125 mg Sprinkle Capsule PER TUBE SCH ×3 (10:37→20:45)
[2017-02-15] MEDS: Acetaminophen 650 MG/20.3 ML UDCUP PO PRN (12:15)
--- NOTE | 2017-02-15 17:20 | PDOC.PN ---
- Subjective Encounter Start Date: 02/15/17 Encounter Start Time: 17:15 Subjective: f/u for acute resp failure now extubated on O2 via NC. States feeling -: very weak and some dyspnea. - Objective MAR Reviewed: Yes Vital Signs & Weight: Vital Signs (12 hours) Temp Pulse Pulse Pulse Resp BP BP 02/15/17 15:00 97.7 F 02/15/17 14:33 75 26 H 02/15/17 12:00 97.8 F 02/15/17 11:05 81 23 H 02/15/17 09:50 77 80 146/64 H 02/15/17 08:00 98.5 F 68 18 02/15/17 07:35 18 02/15/17 07:25 02/15/17 07:00 98.5 F 02/15/17 06:50 79 155/56 H 02/15/17 06:48 76 27 H 02/15/17 06:00 11 L BP Pulse Ox 02/15/17 15:00 02/15/17 14:33 99 02/15/17 12:00 02/15/17 11:05 99 02/15/17 09:50 148/64 H 02/15/17 08:00 98 02/15/17 07:35 02/15/17 07:25 96 02/15/17 07:00 02/15/17 06:50 02/15/17 06:48 97 02/15/17 06:00 Weight Admit Weight 187 lb 9.6 oz Weight 195 lb 5.273 oz Most Recent Monitor Data Heart Rate from ECG 78 NIBP 159/68 NIBP BP-Mean 95 Respiration from ECG 27 SpO2 100 I&O: 02/14/17 02/15/17 02/16/17 06:59 06:59 06:59 Intake Total 4639 2407 621 Output Total 3498 0294 9046 Balance 855 -4892 -4743 Result Diagrams: 02/15/17 04:25 02/15/17 04:25 EKG Reviewed by me: Yes (Tele - SR in 80's) Phys Exam - Physical Examination alert, responsive, appears weak HEENT: PERRLA, oral pharynx no lesions Neck: no JVD, supple diminished in bases Cardiovascular: RRR Gastrointestinal: soft, non-tender, no distention, positive bowel sounds Musculoskeletal: no edema, pulses present Neurological: moves all 4 limbs Psychiatric: A&O x 3 Skin: normal turgor, cap refill <2 seconds Deviation from normal: Bains with clear urine Dx/Plan (1) Acute and chronic respiratory failure ([id number]) Code(s): J96.20 - ACUTE AND CHR RESP FAILURE, UNSP W HYPOXIA OR HYPERCAPNIA Status: Acute Qualifiers: Respiratory failure complication: hypoxia and hypercapnia Qualified Code(s) : J96.21 - Acute and chronic respiratory failure with hypoxia; J96.22 - Acute and chronic respiratory failure with hypercapnia; J96.22 - Acute and chronic respiratory failure with hypercapnia; J96.22 - Acute and chronic respiratory failure with hypercapnia Comment: Extubated, CPAP nocturnally, Solumedrol 40mg IV daily, [place] (2) Pneumonia Code(s): J18.9 - PNEUMONIA, UNSPECIFIED ORGANISM Status: Acute Comment: Multilobar involvement, continue Meropenem and Zithromax (3) UTI (urinary tract infection) Status: Acute Comment: UCx with E. coli, add Meropenem due to MDR organism (4) Morbid obesity Code(s): E66.01 - MORBID (SEVERE) OBESITY DUE TO EXCESS CALORIES Status: Chronic (5) Atrial fibrillation Code(s): I48.91 - UNSPECIFIED ATRIAL FIBRILLATION Status: Chronic Qualifiers: Atrial fibrillation type: chronic Qualified Code(s): I48.2 - Chronic atrial fibrillation Comment: Rate controlled currently, resume Amiodarone (6) Agitation Status: Acute Comment: multifactorial, continue Ativan, Xanax, Depakote, off Propofol (7) Encephalopathy acute Code(s): G93.40 - ENCEPHALOPATHY, UNSPECIFIED Status: Acute Comment: Resolved - Plan continue antibiotics, PT/OT, health care social worker, speech therapy, respiratory therapy, DVT proph w/SCDs Stable currently -: Continue Solumedrol -: Continue Lasix 20mg IV daily -: KCL supplementation -: PT/OT for functional assessment * CM for SNF options * AM lab: BMP, CBC
[2017-02-16] MEDS: Azithromycin 500 MG in Sodium Chloride 0.9% 250 ML 250 ML IVPB SCH (01:45)
[2017-02-16 05:42] LABS: #Eosinphils 0.1 thou/uL (0.0-0.7); #Lymphocytes 1.3 thou/uL (1.20-3.40); #Monocytes 1.4 thou/uL (0.11-0.59); #Neutrophils 9.8 thou/uL (1.40-6.50); %Basophils 0.2 % (0.0-1.0); %Eosinophils 0.4 % (0.0-10.0); %Lymphocytes 10.3 % (21.0-51.0); Hematocrit 33.5 % (36.0-47.0); Mean Platelet Volume 8.8 fL (7.4-10.4); Red Blood Cell (RBC) Count 3.94 mill/uL (4.20-5.40); White Blood Cell (WBC) Count 12.6 thou/uL (4.8-10.8)
[2017-02-16 05:56] LABS: BUN (Urea Nitrogen) 21 mg/dL (9.8-20.1); Calc. Creatinine Clearance 107 mL/min (70-130); Calcium 8.7 mg/dL (7.8-10.44); Estimated GFR-MDRD Greater than 90
[2017-02-16] MEDS: MEROPENEM 1 GM/50 ML 1 GM in Premix Bag 1 BAG IVPB SCH ×3 (06:01→23:02)
[2017-02-16 06:05] LABS: Anion Gap 12 mmol/L (10-20); Carbon Dioxide 36 mmol/L (23-31); Chloride 102 mmol/L (98-107)
[2017-02-16] MEDS: Enoxaparin Sodium 40 MG/0.4 ML SYRINGE SC SCH (08:21)
[2017-02-16] MEDS: Acetaminophen 650 MG/20.3 ML UDCUP PO PRN (08:22)
[2017-02-16] MEDS: Famotidine/PF 20 mg/2ml Vial SLOW IVP SCH (08:22)
[2017-02-16] MEDS: Furosemide 20 MG/2 ML VIAL SLOW IVP SCH (08:29)
--- NOTE | 2017-02-16 08:51 | PRG ---
DATE OF SERVICE: 02/16/2017 The patient is up in a chair. She is complaining that she is not in bed. PHYSICAL EXAMINATION: VITAL SIGNS: Temperature is 98.2, pulse 75, blood pressure 135/52, 24 hour intake 2119, output 3400. HEENT: Unremarkable. NECK: No JVD. LUNGS: Clear but distant breath sounds. CARDIAC: S1 and S2 regular. ABDOMEN: Soft. EXTREMITIES: No edema. LABORATORY DATA: White blood cell count 12.6, hematocrit 33.5, platelet count 234. Sodium 146, pota ssium 3.6, chloride 102, CO2 36, BUN 21, creatinine 0.6, glucose 88. ASSESSMENT: 1. Status post acute respiratory failure related to chronic obstructive pulmonary disease exacerbati on. 2. Status post prolonged mechanical ventilation. 3. Anxiety. 4. Mild hypernatremia. PLAN: She can probably move to the telemetry floor. She is going to require close observation and p robably aggressive rehab before being discharged.
[2017-02-16] MEDS ORDERED: predniSONE 20 MG TAB PO SCH (12:45)
[2017-02-16] MEDS: Famotidine 20 MG TAB PO SCH ×2 (13:20→20:52)
[2017-02-16] MEDS: ALPRAZolam 0.25 MG TAB PO PRN (13:59)
--- NOTE | 2017-02-16 17:17 | PDOC.PN ---
- Subjective Encounter Start Date: 02/16/17 Encounter Start Time: 17:15 Subjective: f/u acute hypoxic resp failure s/p mech vent. States feeling better overall -: Nsg reports ? blood in stool. - Objective MAR Reviewed: Yes Vital Signs & Weight: Vital Signs (12 hours) Temp Pulse Resp BP Pulse Ox 02/16/17 15:20 97.4 F L 91 20 138/64 99 02/16/17 15:01 84 28 H 99 02/16/17 12:45 98.3 F 84 28 H 90 L 02/16/17 10:31 76 25 H 02/16/17 08:43 96 02/16/17 08:41 82 26 H 100 02/16/17 08:00 98.7 F 76 25 H 67 L 02/16/17 07:00 98.2 F Weight Admit Weight 187 lb 9.6 oz Weight 193 lb 9.054 oz Most Recent Monitor Data Heart Rate from ECG 72 NIBP 137/58 NIBP BP-Mean 69 Respiration from ECG 31 SpO2 98 I&O: 02/15/17 02/16/17 02/17/17 06:59 06:59 06:59 Intake Total 2407 2119 Output Total 4680 3400 1460 Balance -7331 -6924 -7201 Result Diagrams: 02/16/17 04:55 02/16/17 04:55 Additional Labs: Microbiology 02/10/17 11:20 Tracheal - Aspirate Respiratory Culture - Final 02/09/17 20:16 Urine mueller catheter Urine Culture - Final Escherichia coli 02/09/17 19:17 Nasal swab Influenza Types A,B Direct EIA - Final 02/10/17 11:20 Tracheal - Aspirate Respiratory Culture - Preliminary 02/09/17 20:16 Urine mueller catheter Urine Culture - Preliminary Escherichia coli 02/09/17 18:13 Venous blood - Left Arm Blood Culture - Preliminary Specimen has been received and culture in progress. No Growth to date. 02/09/17 18:03 Venous blood - Right Hand Blood Culture - Preliminary Specimen has been received and culture in progress. No Growth to date. 02/09/17 18:03 Venous blood - Right Hand Blood Culture - Preliminary NO GROWTH AT 48 HOURS Laboratory Tests 06/13/14 02/09/17 02/09/17 08:28 18:03 18:03 WBC Hgb 11.2 L Neutrophils % (Manual) Sodium Potassium BUN Creatinine Phosphorus Magnesium B-Natriuretic Peptide 221.4 H 121.7 H 02/09/17 02/12/17 02/12/17 19:08 03:59 03:59 WBC 10.5 Hgb Neutrophils % (Manual) 94 H Sodium Potassium 3.4 L BUN 21 H Creatinine 1.08 Phosphorus Magnesium B-Natriuretic Peptide 02/13/17 02/13/17 02/14/17 03:45 04:19 05:02 WBC 13.6 H Hgb 10.8 L Neutrophils % (Manual) Sodium 144 Potassium 3.7 BUN Creatinine Phosphorus 2.7 Magnesium 1.9 B-Natriuretic Peptide 02/15/17 02/15/17 04:25 04:25 WBC 12.6 H Hgb 9.6 L Neutrophils % (Manual) Sodium 145 Potassium 3.0 L BUN Creatinine Phosphorus Magnesium B-Natriuretic Peptide EKG Reviewed by me: Yes (Tele - SR in 70's) Phys Exam - Physical Examination Constitutional: NAD HEENT: PERRLA, oral pharynx no lesions Neck: no JVD, supple diminished in bases Cardiovascular: RRR Gastrointestinal: soft, non-tender, no distention, positive bowel sounds Musculoskeletal: pulses present, edema present Neurological: moves all 4 limbs Skin: normal turgor, cap refill <2 seconds Dx/Plan (1) Acute and chronic respiratory failure ([id number]) Code(s): J96.20 - ACUTE AND CHR RESP FAILURE, UNSP W HYPOXIA OR HYPERCAPNIA Status: Acute Qualifiers: Respiratory failure complication: hypoxia and hypercapnia Qualified Code(s) : J96.21 - Acute and chronic respiratory failure with hypoxia; J96.22 - Acute and chronic respiratory failure with hypercapnia; J96.22 - Acute and chronic respiratory failure with hypercapnia; J96.22 - Acute and chronic respiratory failure with hypercapnia Comment: Extubated, CPAP nocturnally, Prednisone 20mg BID, Duonebs (2) Pneumonia Code(s): J18.9 - PNEUMONIA, UNSPECIFIED ORGANISM Status: Acute Comment: Multilobar involvement, continue Meropenem and Zithromax (3) UTI (urinary tract infection) Status: Acute Comment: UCx with E. coli, add Meropenem due to MDR organism (4) Morbid obesity Code(s): E66.01 - MORBID (SEVERE) OBESITY DUE TO EXCESS CALORIES Status: Chronic (5) Atrial fibrillation Code(s): I48.91 - UNSPECIFIED ATRIAL FIBRILLATION Status: Chronic Qualifiers: Atrial fibrillation type: chronic Qualified Code(s): I48.2 - Chronic atrial fibrillation Comment: Rate controlled currently, resume Amiodarone (6) Agitation Status: Acute Comment: multifactorial, resolved (7) Encephalopathy acute Code(s): G93.40 - ENCEPHALOPATHY, UNSPECIFIED Status: Acute Comment: Resolved - Plan continue antibiotics, PT/OT, social services aide, respiratory therapy, DVT proph w/ SCDs Stable overall -: Continue Meropenem and Zithromax -: Prednisone 20mg BID -: Resume Xanax 0.25mg BID -: PT/OT for mobilization, ROM exercises * SNF options * Stool hemoccult, C. diff, stool cx * AM lab: BMP, CBC
[2017-02-16] MEDS: predniSONE 20 MG TAB PO SCH (20:51)
[2017-02-17] MEDS: Azithromycin 500 MG in Sodium Chloride 0.9% 250 ML 250 ML IVPB SCH (02:09)
[2017-02-17] MEDS: MEROPENEM 1 GM/50 ML 1 GM in Premix Bag 1 BAG IVPB SCH ×3 (05:12→20:18)
[2017-02-17 05:27] LABS: BUN (Urea Nitrogen) 24 mg/dL (9.8-20.1); Calc. Creatinine Clearance 97 mL/min (70-130); Calcium 8.9 mg/dL (7.8-10.44); Estimated GFR-MDRD 82
[2017-02-17 05:36] LABS: Anion Gap 11 mmol/L (10-20); Carbon Dioxide 36 mmol/L (23-31); Chloride 101 mmol/L (98-107)
[2017-02-17 05:42] LABS: Hematocrit 35.1 % (36.0-47.0); Mean Platelet Volume 9.1 fL (7.4-10.4); Neutrophil 87 % (42-75); Reactive Lymphocytes 1 % (0-10); Red Blood Cell (RBC) Count 4.09 mill/uL (4.20-5.40); White Blood Cell (WBC) Count 12.2 thou/uL (4.8-10.8)
--- NOTE | 2017-02-17 08:45 | PRG ---
DATE OF SERVICE: 02/17/2017 SUBJECTIVE: Mrs. Snyder seems more awake and alert today. She is wanting to have a rescue inhaler a t the bedside. OBJECTIVE: VITAL SIGNS: Temperature 98.1, pulse 69, respirations 18, O2 sat 100%, and blood pressure 135/58. HEENT: Unremarkable. NECK: No JVD. LUNGS: Clear without wheezing. CARDIAC: S1 and S2, regular. ABDOMEN: Soft. EXTREMITIES: Trace edema. LABORATORY DATA: Sodium 144, potassium 4.1, CO2 of 36, BUN 24, creatinine 0.7, glucose 125. White b lood cell count 12.2, hematocrit 35.1, and platelet count 255. ASSESSMENT: 1. Status post prolonged respiratory failure for chronic obstructive pulmonary disease exacerbation. 2. Anxiety. PLAN: 1. Transfer to medical floor. 2. Continue physical therapy. 3. Consider placement at [facility]. 4. Continue the meropenem for E. coli in the urine.
[2017-02-17] MEDS: Famotidine 20 MG TAB PO SCH ×2 (09:23→20:14)
[2017-02-17] MEDS: predniSONE 20 MG TAB PO SCH ×2 (09:24→20:14)
[2017-02-17] MEDS: Enoxaparin Sodium 40 MG/0.4 ML SYRINGE SC SCH (09:24)
--- NOTE | 2017-02-17 09:26 | PDOC.PN ---
- Subjective Encounter Start Date: 02/17/17 Encounter Start Time: 08:40 Subjective: I FEEL LIKE I CAN'T BREATHE. - Objective MAR Reviewed: Yes Vital Signs & Weight: Vital Signs (12 hours) Temp Pulse Resp BP Pulse Ox 02/17/17 08:39 98 02/17/17 08:35 87 20 02/17/17 07:22 98.1 F 69 18 138/58 L 100 02/17/17 05:22 98.2 F 76 18 121/55 L 97 02/17/17 03:40 79 20 95 02/16/17 23:55 97.8 F 81 18 150/72 H 98 02/16/17 22:28 86 22 H Weight Admit Weight 187 lb 9.6 oz Weight 191 lb 6.4 oz Most Recent Monitor Data Heart Rate from ECG 72 NIBP 137/58 NIBP BP-Mean 69 Respiration from ECG 31 SpO2 98 I&O: 02/16/17 02/17/17 02/18/17 06:59 06:59 06:59 Intake Total 2119 275 Output Total 3400 1460 Balance -1281 -1185 Result Diagrams: 02/17/17 04:25 02/17/17 04:24 Radiology Reviewed by me: Yes Phys Exam - Physical Examination Constitutional: NAD ANXIOUS HEENT: PERRLA, moist MMs Neck: supple, full ROM Respiratory: no wheezing, no rhonchi Cardiovascular: irregular Gastrointestinal: soft, non-tender, positive bowel sounds Musculoskeletal: edema present Neurological: non-focal, moves all 4 limbs Psychiatric: A&O x 3 Deviation from normal: ANXIOUS Dx/Plan (1) Agitation Status: Acute Comment: multifactorial, resolved (2) Encephalopathy acute Code(s): G93.40 - ENCEPHALOPATHY, UNSPECIFIED Status: Acute Comment: Resolved (3) Atrial fibrillation Code(s): I48.91 - UNSPECIFIED ATRIAL FIBRILLATION Status: Chronic Qualifiers: Atrial fibrillation type: chronic Qualified Code(s): I48.2 - Chronic atrial fibrillation Comment: Rate controlled currently, resume Amiodarone (4) Acute and chronic respiratory failure ([id number]) Code(s): J96.20 - ACUTE AND CHR RESP FAILURE, UNSP W HYPOXIA OR HYPERCAPNIA Status: Acute Qualifiers: Respiratory failure complication: hypoxia and hypercapnia Qualified Code(s) : J96.21 - Acute and chronic respiratory failure with hypoxia; J96.22 - Acute and chronic respiratory failure with hypercapnia; J96.22 - Acute and chronic respiratory failure with hypercapnia; J96.22 - Acute and chronic respiratory failure with hypercapnia Comment: Extubated, CPAP nocturnally, Prednisone 20mg BID, Duonebs (5) Pneumonia Code(s): J18.9 - PNEUMONIA, UNSPECIFIED ORGANISM Status: Acute Comment: Multilobar involvement, continue Meropenem and Zithromax (6) UTI (urinary tract infection) Status: Acute Comment: UCx with E. coli, add Meropenem due to MDR organism (7) Morbid obesity Code(s): E66.01 - MORBID (SEVERE) OBESITY DUE TO EXCESS CALORIES Status: Chronic - Plan cont current plan of care, continue antibiotics, PT/OT, respiratory therapy, incentive spirometry MENTAL STATUS IMPROVED WITH ANXIOLYTICS. TRANSFER TO FLOOR TODAY. -: CONTINUE MERREM FOR ESBL E COLI. * .
[2017-02-17] MEDS: ALPRAZolam 0.25 MG TAB PO PRN ×2 (11:36→20:13)
[2017-02-17 14:36] VITALS: BMI 32.6
[2017-02-18] MEDS: MEROPENEM 1 GM/50 ML 1 GM in Premix Bag 1 BAG IVPB SCH ×3 (05:48→20:36)
--- NOTE | 2017-02-18 08:47 | PRG ---
DATE OF SERVICE: 02/18/2017 She feels better. She is complaining that she does not have a bedside inhaler. PHYSICAL EXAMINATION: VITAL SIGNS: Temperature 97.8, pulse 76, respiratory rate 16, O2 sat 97%, blood pressure 122/84. HEENT: Unremarkable. NECK: No JVD. LUNGS: Fairly clear. CARDIOVASCULAR: S1, S2 regular. ABDOMEN: Soft. EXTREMITIES: No edema. LABORATORY DATA: No new labs were obtained today. ASSESSMENT: 1. Status post acute respiratory failure requiring mechanical ventilation. 2. Chronic obstructive pulmonary disease with exacerbation. 3. Anxiety. PLAN: 1. Restart her glaucoma medications. 2. Finish out the meropenem for the E. coli sepsis. 3. Increase activity as tolerated. 4. Restart Dulera: She is on Symbicort at home, but it is not a formula here. 5. Can probably be sent to rehab at any time.
[2017-02-18] MEDS ORDERED: Non-Formulary Item 1 EACH (Brimonidine Tartrate [Brimonidine Tartrate 0.15% Ophth Soln] 1 EA EYE SCH (09:00)
[2017-02-18] MEDS: Enoxaparin Sodium 40 MG/0.4 ML SYRINGE SC SCH (09:11)
[2017-02-18] MEDS: Famotidine 20 MG TAB PO SCH ×2 (09:12→20:29)
[2017-02-18] MEDS: predniSONE 20 MG TAB PO SCH (09:12)
[2017-02-18] MEDS: Metoprolol Tartrate 50 MG TAB PO SCH ×2 (09:12→20:29)
[2017-02-18] MEDS: Dorzolamide HCl 2% Ophth Soln 10 ml Bottle EA EYE SCH ×3 (11:05→20:31)
[2017-02-18] MEDS: AcetaZOLAMIDE 250 MG TAB PO SCH (11:06)
--- NOTE | 2017-02-18 14:15 | PDOC.PN ---
- Subjective Encounter Start Date: 02/18/17 Encounter Start Time: 14:15 Subjective: feel better today - Objective MAR Reviewed: Yes Vital Signs & Weight: Vital Signs (12 hours) Temp Pulse Resp BP Pulse Ox 02/18/17 13:56 66 167/74 H 95 02/18/17 11:39 84 20 94 L 02/18/17 08:00 97.8 F 76 16 192/84 H 97 02/18/17 06:53 70 20 94 L 02/18/17 04:00 98.0 F 70 20 164/73 H 94 L 02/18/17 02:36 95 02/18/17 02:10 77 12 Weight Admit Weight 187 lb 9.6 oz Weight 191 lb 3 oz Most Recent Monitor Data Heart Rate from ECG 72 NIBP 137/58 NIBP BP-Mean 69 Respiration from ECG 31 SpO2 98 I&O: 02/17/17 02/18/17 02/19/17 06:59 06:59 06:59 Intake Total 275 510 240 Output Total 1460 1100 Balance -1185 -590 240 Result Diagrams: 02/17/17 04:25 02/17/17 04:24 Phys Exam - Physical Examination Constitutional: NAD HEENT: PERRLA, moist MMs Neck: supple, full ROM Respiratory: wheezing present Cardiovascular: RRR Gastrointestinal: soft, non-tender, positive bowel sounds Musculoskeletal: edema present Neurological: non-focal, moves all 4 limbs Psychiatric: normal affect, A&O x 3 Skin: no rash Dx/Plan (1) Agitation Status: Acute Comment: multifactorial, resolved (2) Encephalopathy acute Code(s): G93.40 - ENCEPHALOPATHY, UNSPECIFIED Status: Acute Comment: Resolved (3) Atrial fibrillation Code(s): I48.91 - UNSPECIFIED ATRIAL FIBRILLATION Status: Chronic Qualifiers: Atrial fibrillation type: chronic Qualified Code(s): I48.2 - Chronic atrial fibrillation Comment: Rate controlled currently, resume Amiodarone (4) Acute and chronic respiratory failure ([id number]) Code(s): J96.20 - ACUTE AND CHR RESP FAILURE, UNSP W HYPOXIA OR HYPERCAPNIA Status: Acute Qualifiers: Respiratory failure complication: hypoxia and hypercapnia Qualified Code(s) : J96.21 - Acute and chronic respiratory failure with hypoxia; J96.22 - Acute and chronic respiratory failure with hypercapnia; J96.22 - Acute and chronic respiratory failure with hypercapnia; J96.22 - Acute and chronic respiratory failure with hypercapnia Comment: Extubated, CPAP nocturnally, Prednisone 20mg BID, Duonebs (5) Pneumonia Code(s): J18.9 - PNEUMONIA, UNSPECIFIED ORGANISM Status: Acute Comment: Multilobar involvement, continue Meropenem and Zithromax (6) UTI (urinary tract infection) Status: Acute Comment: UCx with E. coli, add Meropenem due to MDR organism (7) Morbid obesity Code(s): E66.01 - MORBID (SEVERE) OBESITY DUE TO EXCESS CALORIES Status: Chronic - Plan cont current plan of care, continue antibiotics elevated bp today, will adjust meds prior to d/c to rehab. * .
[2017-02-18] MEDS: Brimonidine Tartrate 0.2% Ophth Soln 5 ml Bottle EA EYE SCH ×2 (15:39→20:31)
[2017-02-18] MEDS ORDERED: hydrOXYzine 25 MG TAB PO PRN (16:39)
[2017-02-18] MEDS ORDERED: Loperamide HCl 2 MG CAP PO PRN (16:39)
[2017-02-18] MEDS: Mometasone/Formoterol 120 PUFF INHALER INH SCH (19:28)
[2017-02-18] MEDS: hydrALAZINE 25 MG TAB PO SCH (20:29)
[2017-02-18] MEDS: ALPRAZolam 0.25 MG TAB PO PRN (20:36)
[2017-02-18] MEDS: Ondansetron ODT 4 MG TAB PO SCH (20:36)
[2017-02-18] MEDS ORDERED: Atorvastatin Calcium 20 MG TAB PO SCH (21:00)
[2017-02-18] MEDS ORDERED: Non-Formulary Item 1 EACH (Budesonide-Formoterol [Symbicort 160-4.5] 2 PUFF) INH SCH (21:00)
[2017-02-18] MEDS ORDERED: Montelukast Sodium 10 mg Tablet PO SCH (21:00)
[2017-02-18] MEDS ORDERED: Mirtazapine 15 MG Soltab PO SCH (21:00)
[2017-02-18] MEDS ORDERED: Latanoprost 0.005% Ophth Soln 2.5 ml Bottle EA EYE SCH (21:00)
[2017-02-19] MEDS: Ondansetron ODT 4 MG TAB PO SCH (06:05)
[2017-02-19] MEDS: MEROPENEM 1 GM/50 ML 1 GM in Premix Bag 1 BAG IVPB SCH (06:05)
[2017-02-19] MEDS: Mometasone/Formoterol 120 PUFF INHALER INH SCH (06:36)
--- NOTE | 2017-02-19 07:50 | PRG ---
DATE OF SERVICE: 02/19/2017 SUBJECTIVE: She is sleeping on CPAP, appears comfortable. OBJECTIVE: VITAL SIGNS: Temperature 97.7, pulse 65, respirations 19, O2 sat 94%, and blood pressure 128/70. HEENT: Unremarkable. NECK: No adenopathy or JVD. LUNGS: Clear. CARDIAC: S1 and S2, regular. ABDOMEN: Soft. EXTREMITIES: No edema. LABORATORY DATA: No labs were obtained today. ASSESSMENT: 1. Status post respiratory failure, requiring mechanical ventilation. 2. Chronic obstructive pulmonary disease exacerbation, improved. 3. Obstructive sleep apnea. 4. Anxiety. 5. Urinary tract infection. PLAN: The patient is stable from a pulmonary standpoint for transfer to the next level of care. Pre dnisone was tapered yesterday. She has been put back on her eye drops and acetazolamide. No further recommendations from us. Dr. Peguero is available this weekend if help needed.
[2017-02-19] MEDS ORDERED: predniSONE 5 MG TAB PO SCH (08:00)
[2017-02-19] MEDS ORDERED: Potassium Chloride 10 MEQ TAB PO SCH (08:00)
[2017-02-19 08:02] VITALS: TEMP 98
[2017-02-19] MEDS: Enoxaparin Sodium 40 MG/0.4 ML SYRINGE SC SCH (08:03)
[2017-02-19] MEDS: hydrALAZINE 25 MG TAB PO SCH (08:04)
[2017-02-19] MEDS: Metoprolol Tartrate 50 MG TAB PO SCH (08:05)
[2017-02-19] MEDS: Famotidine 20 MG TAB PO SCH (08:06)
[2017-02-19] MEDS: Dorzolamide HCl 2% Ophth Soln 10 ml Bottle EA EYE SCH (08:06)
[2017-02-19] MEDS: AcetaZOLAMIDE 250 MG TAB PO SCH (08:08)
[2017-02-19] MEDS: Brimonidine Tartrate 0.2% Ophth Soln 5 ml Bottle EA EYE SCH (08:08)
[2017-02-19] MEDS ORDERED: Amlodipine 10 MG TAB PO SCH (09:00)
[2017-02-19] MEDS ORDERED: Furosemide 40 MG TAB PO SCH (09:00)
[2017-02-19] MEDS ORDERED: Meloxicam 15 MG TAB PO SCH (09:00)
[2017-02-19] MEDS ORDERED: Bupropion 150 MG SR TAB PO SCH (09:00)
--- NOTE | 2017-02-19 10:07 | DIS ---
DATE OF ADMISSION: 02/09/2017 DATE OF DISCHARGE: 02/19/2017 PRIMARY DISCHARGE DIAGNOSES: 1. Acute respiratory failure, hypoxic with hypercapnia. 2. Hypertension. 3. Metabolic encephalopathy. 4. History of atrial fibrillation and chronic diastolic heart failure. 5. Obstructive sleep apnea. 6. Anxiety. 7. Urinary tract infection with extended spectrum beta lactamase Escherichia coli. HOSPITAL COURSE: The patient was admitted on 02/09/2017 secondary to dyspnea and hypoxemia. The pat ient was eventually intubated and treated in the Intensive Care Unit. Pulmonary and Critical Care we re consulted to assist in caring for the patient. The patient improved with mechanical ventilation a s well as antibiotic therapy. She was eventually extubated. The patient had urine cultures performe d, which showed an E. coli organism with extended spectrum beta lactamase. The organism was sensitiv e to meropenem, and the patient was treated accordingly. During her hospital course, she was noted t o have transient tremors. Neurology was consulted, the tremors were felt to be secondary to possible medication; nevertheless, the symptoms resolved and she was cleared by Neurology. The Pulmonary Ser vice felt that the patient was stable from a pulmonary standpoint, performed a prednisone taper and c leared her for discharge back to rehabilitation. CONSULTANTS: Dr. Blake, Pulmonary Medicine; Dr. Singh, Neurology. PROCEDURES: Brain CT was performed which showed no acute findings. DISCHARGE DISPOSITION: Inpatient rehabilitation. DISCHARGE DIET: Cardiac, heart healthy. DISCHARGE ACTIVITY: As tolerated. DISCHARGE MEDICATIONS: The patient will resume her home medication regimen. She will continue IV me ropenem for a total of 5 additional days. PHYSICAL EXAMINATION: GENERAL: She is in no acute distress, pleasant, cooperative, coherent. HEENT: Normocephalic, atraumatic. Nasal cannula in place. Eyes: PERRL. Sclerae are anicteric. NECK: Supple, full range of motion. CHEST: Clear to auscultation bilaterally. HEART: Irregularly irregular. ABDOMEN: Nontender, nondistended. No rebound, no guarding. EXTREMITIES: No clubbing or cyanosis, 1-2+ edema bilaterally. FOLLOWUP INSTRUCTIONS: The patient will be discharged to inpatient rehabilitation for her debilitati on. Disposition will be per the PM&R physicians at that facility.
[2017-02-19 11:37] VITALS: BP 128/72
[2017-02-25] MEDS ORDERED: Ergocalciferol 1.25 MG(50,000 UNITS) CAP PO SCH (09:00)
== END 2017-02-19 14:25 | DRG 207 ==
LOC: ERS 17:16 → CCU 22:59 → IMCU/EMU 02-16 11:47 → T4-A 02-17 13:57
PROVIDERS: ADMIT Internal Medicine; ATTEND Internal Medicine
PROC: 5A1955Z Respiratory Ventilation, Greater than 96 Consecutive Hours (ICD-10-PCS; principal; 2017-02-09)
PROC: 0BH17EZ Insertion of Endotracheal Airway into Trachea, Via Natural or Artificial Opening (ICD-10-PCS; 2017-02-09)
PROC: 0BP1XDZ Removal of Intraluminal Device from Trachea, External Approach (ICD-10-PCS; 2017-02-15)
DX: J18.9 Pneumonia, unspecified organism (principal); G93.41 Metabolic encephalopathy; J90 Pleural effusion, not elsewhere classified; J96.21 Acute and chronic respiratory failure with hypoxia; N39.0 Urinary tract infection, site not specified; I48.2 Chronic atrial fibrillation; I50.32 Chronic diastolic (congestive) heart failure; I11.0 Hypertensive heart disease with heart failure; E11.9 Type 2 diabetes mellitus without complications; B96.20 Unspecified Escherichia coli [E. coli] as the cause of diseases classified elsewhere; J44.0 Chronic obstructive pulmonary disease with (acute) lower respiratory infection; G25.1 Drug-induced tremor; J96.22 Acute and chronic respiratory failure with hypercapnia; E87.1 Hypo-osmolality and hyponatremia; J44.1 Chronic obstructive pulmonary disease with (acute) exacerbation; I48.91 Unspecified atrial fibrillation; I25.10 Atherosclerotic heart disease of native coronary artery without angina pectoris; G47.33 Obstructive sleep apnea (adult) (pediatric); E78.5 Hyperlipidemia, unspecified; E66.01 Morbid (severe) obesity due to excess calories; F41.9 Anxiety disorder, unspecified; R60.1 Generalized edema; R41.0 Disorientation, unspecified; R45.1 Restlessness and agitation; Z68.32 Body mass index [BMI] 32.0-32.9, adult; Z95.810 Presence of automatic (implantable) cardiac defibrillator; Z88.5 Allergy status to narcotic agent; Z88.2 Allergy status to sulfonamides; Z82.49 Family history of ischemic heart disease and other diseases of the circulatory system; T50.995A Adverse effect of other drugs, medicaments and biological substances, initial encounter
CPT/HCPCS: 31500; 36415; 51702; 70460; 71010; 71275; 80048; 80053; 81003; 81015; 82553; 82805; 83605; 83690; 83735; 83880; 84100; 84484; 85007; 85025; 85027; 85379; 85610; 85730; 87040; 87070; 87077; 87086; 87186; 87205; 89220; 93005; 94002; 94003; 94640; 94644; 94660; 96361; 96365; 96366; 96367; 96375; A4216; A4353; G8978-GP-CM; G8979-GP-CJ; G8987-GO-CL; G8988-GO-CJ; J0456; J0692; J1100; J1630; J1650; J1940; J1956; J2060; J2704; J2920; J2930; J3010; J3370; J3475; J3480; J7050; J7506; J7611; J7620; Q0162; S0028

== ENCOUNTER 2017-03-19 15:19 | Outpatient (CLI) | payer MEDICARE, OTHER ==
--- NOTE | 2017-03-19 16:13 | RAD ---
FRONTAL RADIOGRAPH CHEST: DATE: 03/19/17. COMPARISON: 12/03/08. HISTORY: Shortness of breath. FINDINGS: Small bilateral pleural effusions are noted. There is a dual-lead transvenous AICD present. There i s mild hazy increased density in the right medial lung base suggesting right middle lobe consolidatio n/collapse. No pneumothorax or alveolar edema. IMPRESSION: Hazy increased density in the medial right lung base suggests partial consolidation/collapse of the r ight middle lobe. Followup to document resolution advised. Small bilateral pleural effusions noted. ADDENDUM BY DR. OSEGUERA ON 03/20/17: Comparison is made to study from 03/02/17. The pleural and parenchymal changes previously noted in th e left base have essentially resolved, although this area is somewhat obscured by the left transvenou s pacemaker. The appearance of the right infrahilar region is little changed. Recommend continued paul rt-term follow-up. POS: CLAY
== END 2017-03-19 15:20 | disposition home or self-care (01) ==
LOC: RAD 15:19
PROVIDERS: ATTEND Internal Medicine Geriatric Medicine
DX: R06.02 Shortness of breath (principal); J98.19 Other pulmonary collapse; J90 Pleural effusion, not elsewhere classified; Z95.0 Presence of cardiac pacemaker; Z86.711 Personal history of pulmonary embolism
CPT/HCPCS: 71046

== ENCOUNTER 2018-08-24 17:51 | Inpatient (IN) | payer MEDICARE ==
--- NOTE | 2018-08-24 18:13 | CT ---
CT Brain WO Con HISTORY: Patient is unresponsive. History of fall. COMPARISON: 08/19/2010 study. FINDINGS: The ventricular and cisternal system is within normal limits. There are no signs of intrace rebral hemorrhage or extra-axial fluid collections. The mastoid air cells and visualized sinuses are clear. Right frontal scalp hematoma is noted. IMPRESSION: No acute intracranial abnormalities. Findings telephoned to Dr. Kaufman at 1810 hours
--- NOTE | 2018-08-24 18:18 | CT ---
CT Cervical Spine WO Con HISTORY: Fall with neck pain COMPARISON: None. FINDINGS: The vertebral bodies are normal in height. There is degenerative disc narrowing at C3-4 wit h approximately 3 mm of anterolisthesis present, this is associated some moderate arthritic changes of the left-sided facet joints. There is also marked disc narrowing at C4-5 C5-6 and C6-7. There is mild foraminal narrowing at C4-5 there is no central canal stenosis. There is no CT evidence for fracture. The lung apices show COPD type change and small bilateral pleural effusions. IMPRESSION: No CT evidence of fracture of the cervical spine.
[2018-08-24 18:37] LABS: Actual Bicarbonate (HCO3a) 27.8 mEq/L (22-28); Analyzer IN Cardio ER; Base Excess (BEa) 5.2 mEq/L (-2.0 to +3.0); Calcium, Ionized 1.04 mmol/L (1.12-1.30); Hemoglobin (Hb) 9.6 g/dL (12.0-16.0); O2 Tension (PaO2) 319.5 mmHg (> 70.0); Potassium - ABG Lab 3.24 mmol/L (3.70-5.30); pH, Arterial 7.54 (7.35-7.45)
--- NOTE | 2018-08-24 18:38 | CT ---
CTA Angio Head W WO Con HISTORY: Stroke symptoms. Patient unresponsive and in respiratory distress. COMPARISON: Noncontrast CT of brain done earlier today. FINDINGS: There are is a large right and moderate left pleural effusion noted there is associated ate lectatic change. The thyroid gland is normal in appearance and endotracheal tube is in satisfactory position. Fluid is seen in the nasopharynx region. The angiographic portion of the study yielded a good exam. There is a separate origin of the left com mon carotid artery from the aortic arch. The left vertebral artery is dominant. The right vertebral terminates in a PICA branch with the basilar artery supplied solely by the left vertebral artery. On the left side there is plaque formation at the origin left internal carotid artery without signifi cant stenosis. On the right side there is calcified and soft plaque at the origin the right internal carotid artery and slightly greater than 70% stenosis of the origin of the right internal carotid artery by nascent criteria CT angiography of head performed with intravenous contrast enhancement with 3-D reconstructions: The anterior cerebral arteries and the branches of both anterior cerebral arteries are normal in appearance. The right middle cerebral artery shows no cystic significant narrowing no evidence of any lytic intra luminal thrombus. No aneurysm. On the left side the left middle cerebral artery is patent there is slightly poor filling of the sylv umberto branches of the middle cerebral artery on the left as compared to the right of questionable significance the patient is slightly obliqued on this exam. There is incidental note of some active bleeding related to the right frontal scalp hematoma. IMPRESSION: 1. Greater than 70% stenosis of the right internal carotid artery at its origin. 2. No significant stenosis of left internal carotid artery. 3. Dominant left vertebral as discussed above. 4. Slightly poor filling of the sylvian branches of the left middle cerebral artery as compared to th e right. 4. Large right and moderate left pleural effusion.
[2018-08-24 18:43] LABS: Puncture Site RBA
[2018-08-24 18:52] LABS: Hemoglobin 8.8 g/dL (12.0-16.0); Mean Corpuscular HGB CONC 29.4 g/dL (32.0-36.0); Mean Corpuscular Hemoglobin 25.3 pg (27.0-31.0); Mean Corpuscular Volume 86.2 fL (78.0-98.0); Mean Platelet Volume 8.6 fL (7.4-10.4); Platelet Count 259 thou/uL (130-400); RBC Distribution Width 17.5 % (11.5-14.5); Red Blood Cell (RBC) Count 3.47 mill/uL (4.20-5.40); White Blood Cell (WBC) Count 5.1 thou/uL (4.8-10.8)
[2018-08-24 18:53] LABS: Bilirubin Negative (Negative); Blood, Urine Negative (Negative); Clarity CLOUDY (Clear); Glucose, Urine (Dipstick) Negative (Negative); Leukocyte Large (Negative); Nitrite Positive (Negative); Protein, Urine (Dipstick) 30 mg/dL (Neg-Trace); Urobilinogen 0.2 mg/dL (0.2-1.0)
[2018-08-24 18:55] LABS: Prothrombin Time 17.9 SEC (12.0-14.7)
[2018-08-24 18:56] LABS: PTT 33.5 SEC (22.9-36.1)
[2018-08-24 18:56] LABS: Bacteria/HPF 4+ HPF (None Seen); Hyaline Casts/LPF 4-6 HYALINE CAST LPF (0-3 Hyaline); Pathc Cast-AUWi Flag 0.68 (0-2.49); Squamous Epithelial 0-3 HPF (0-3)
[2018-08-24 18:59] LABS: INR-International Normal Ratio 1.5
[2018-08-24 19:05] LABS: #Eosinphils 0.1 thou/uL (0.0-0.7); #Lymphocytes 0.7 thou/uL (1.20-3.40); #Monocytes 0.6 thou/uL (0.11-0.59); #Neutrophils 3.7 thou/uL (1.40-6.50); %Basophils 0.3 % (0.0-1.0); %Eosinophils 1.9 % (0.0-10.0); %Lymphocytes 13.3 % (21.0-51.0); %Monocytes 11.4 % (0.0-10.0); Elliptocytes SLIGHT = 2-5 cells (100X) (0-1/hpf); Hypochromia SLIGHT = 6-15 cells (100X) (0-5/hpf); MDiff Complete? YES; Platelet Morphology Comment Appears Adequate
[2018-08-24 19:07] LABS: ALT (SGPT) 26 U/L (8-55); AST (SGOT) 51 U/L (5-34); Albumin 2.9 g/dL (3.4-4.8); Alkaline Phosphatase 86 U/L (40-150); Anion Gap 12 mmol/L (10-20); BUN (Urea Nitrogen) 18 mg/dL (9.8-20.1); Bilirubin, Total 0.6 mg/dL (0.2-1.2); Calc. Creatinine Clearance 0 mL/min (70-130); Calcium 8.4 mg/dL (7.8-10.44); Carbon Dioxide 32 mmol/L (23-31); Chloride 98 mmol/L (98-107); Estimated GFR-MDRD 52; Globulin 1.8 g/dL (2.4-3.5); Glucose 73 mg/dL (83-110); Potassium 3.5 mmol/L (3.5-5.1); Protein, Total 4.7 g/dL (6.0-8.3); Sodium 138 mmol/L (136-145)
[2018-08-24] MEDS ORDERED: cefTRIAXone\\ROCEPHIN 1 GM VIAL ONE (19:15)
[2018-08-24] MEDS ORDERED: cefTRIAXone\\ROCEPHIN 2 GM VIAL ONE (19:16)
--- NOTE | 2018-08-24 19:18 | RAD ---
XR Chest 1 View Portable HISTORY: Fall and altered mental status. COMPARISON: 03/25/2017 study. FINDINGS: Heart size is enlarged. Endotracheal and NG tubes are in satisfactory position. Pulmonary v essels are engorged with increased parahilar lung markings. Increased density in the bases is compatible with effusions. Scoliotic change of the spine is noted. IMPRESSION: Cardiomegaly with pulmonary edema changes.
[2018-08-25] MEDS ORDERED: Lorazepam 2 MG/ML VIAL SLOW IVP PRN (09:19)
[2018-08-25] MEDS ORDERED: Fentanyl BOLUS 250 ML IVPB PRN (09:19)
[2018-08-25] MEDS ORDERED: Morphine 2 MG/ML SYRINGE SLOW IVP PRN (09:19)
[2018-08-25] MEDS ORDERED: DISCONTINUE PREVIOUS NARCOTIC PAIN MEDICATIONS AND BENZODIAZEPINES FS SCH (09:19)
[2018-08-25] MEDS ORDERED: Propofol BOLUS 1,000 MG/100 ML VIAL IV PRN (09:19)
[2018-08-25] MEDS ORDERED: fentaNYL Citrate/PF 2,000 MCG in Sodium Chloride 0.9% 60 ML IV SCH (09:19)
[2018-08-25 10:01] LABS: Troponin I Less than 0.010 ng/mL (< 0.028)
[2018-08-25 10:40] LABS: Actual Bicarbonate (HCO3a) 25.1 mEq/L (22-28); Base Excess (BEa) 1.7 mEq/L (-2.0 to +3.0); CO2 Tension 34.7 mmHg (35.0-45.0); Calcium, Ionized 1.07 mmol/L (1.12-1.30); Carboxyhemoglobin (COHb) 0.8 gm% (0.0-3.0); Hemoglobin (Hb) 9.5 g/dL (12.0-16.0); O2 Tension (PaO2) 112.2 mmHg (> 70.0); Potassium - ABG Lab 3.79 mmol/L (3.70-5.30); pH, Arterial 7.48 (7.35-7.45)
[2018-08-25 10:41] LABS: ALV-art Gradient 129.625 (0-20); Puncture Site LRA
--- NOTE | 2018-08-25 11:25 | HP ---
CHIEF COMPLAINT: Acute respiratory failure. HISTORY OF PRESENT ILLNESS: Ms. Snyder is a 78-year-old female with past medical history of chronic atrial fibrillation, COPD, obstructive sleep apnea, and heart failure, who was found by the long term on the floor. The patient tried to walk without her oxygen. She usually uses oxygen all the time. Tried to walk without oxygen and she tripped and fell to the right side, hitting her head to the floor. The patient was noted to have a big hematoma on the forehead on the right side and also bruising on the right side of the face. The patient was fully awake. No loss of consciousness. She complained of pain, but she was found to be hypoxic with saturations around 85 on 4 L nasal cannula. EMS was called. EMS found the patient initially alert and awake, but later the patient became tachycardic, tachypneic, and became unresponsive and they have intubated her and brought her to the emergency room. She was evaluated and found to have a large hematoma on the forehead. Workup did not reveal any specific source of her unresponsiveness with a CT brain was unremarkable. The patient was on ventilator support and is admitted for further evaluation and management. The patient was hemodynamically stable. Currently, the patient is awake and responsive to the commands. PAST MEDICAL HISTORY: 1. Chronic atrial fibrillation. 2. Congestive heart failure. 3. Chronic anemia. 4. Anxiety disorder. 5. Major depressive disorder. 6. Hypertension. 7. History of ventricular tachycardia and cardiac arrest. 8. History of pneumonia. 9. COPD. 10. Gastroesophageal reflux disease. 11. Degenerative joint disease. PAST SURGICAL HISTORY: Status post AICD placement, status post cholecystectomy, status post colectomy, status post hernia repair, status post appendectomy, status post total knee arthroplasty, and status post bilateral cataract surgery. ALLERGIES: MULTIPLE, WHICH INCLUDE URMILA INHIBITORS, CODEINE, GABAPENTIN, LORAZEPAM, LYRICA, OXYCODONE, SULFA, AND TRAMADOL. CURRENT MEDICATIONS: The patient is on; 1. Amiodarone 200 mg daily. 2. Amlodipine 5 mg daily. 3. Breo Ellipta one inhalation daily. 4. Bupropion hydrochloride 150 daily. 5. BuSpar 10 mg b.i.d. 6. Caltrate 600 with vitamin D b.i.d. 7. Dorzolamide eye drops three times daily. 8. Eliquis 5 mg b.i.d. 9. Famotidine 20 mg daily. 10. Lasix 20 mg daily. 11. Hydralazine 25 mg daily. 12. DNS q.i.d. 13. Metoprolol 25 mg b.i.d. 14. Lidocaine patches daily. 15. Latanoprost eye drops daily. 16. Risedronate 35 mg weekly. 17. Tylenol p.r.n. FAMILY HISTORY: Nothing contributory. SOCIAL HISTORY: The patient lives in a long term, seen at [facility]. No history of smoking. No history of alcohol. REVIEW OF SYSTEMS: Unable to obtain because the patient is intubated on the ventilator. PHYSICAL EXAMINATION: VITAL SIGNS: Temperature 98, pulse 88, respirations 27, blood pressure 160/80. HEENT: Head, there is a large hematoma on the right side of the forehead with some bleeding. There is ecchymosis on the right cheek area and right orbital area. LUNGS: Bilateral air entry present. No rales. No rhonchi. HEART: S1 and S2. Irregularly irregular. ABDOMEN: Soft. No distention. No tenderness. Normal bowel sounds. RECTAL: Deferred. CENTRAL NERVOUS SYSTEM: The patient moves all extremities. Deep tendon reflex 2+ bilaterally. Plantars downgoing. Sensory intact. DIAGNOSTIC DATA: EKG shows atrial fibrillation with controlled ventricular rate of 81. Chest x-ray shows cardiomegaly. CT scan of the brain negative for any bleeding. No mass. No ischemic stroke. CT angio shows 70% stenosis in right carotid artery. LABORATORY DATA: CBC shows WBC 5, hemoglobin 8.8, hematocrit 29, and platelets 259. Prothrombin time 17 and INR 1.5. Metabolic panel; sodium 138, potassium 3.5, chloride 90, CO2 of 32, BUN 18, creatinine 1, and glucose 73. BNP was 378. ABG showed pH of 7.5, pCO2 of 33, and pO2 of 319. Urinalysis revealed nitrite positive, wbc greater than 50, and bacteria 4+. ASSESSMENT: 1. Acute respiratory failure. 2. Status post fall with large hematoma to the forehead. 3. Urinary tract infection. 4. Chronic atrial fibrillation. 5. Chronic anemia. 6. Chronic obstructive pulmonary disease. 7. Obstructive sleep apnea. 8. Congestive heart failure. 9. History of anxiety and depression. PLAN: 1. ICU monitoring. 2. Ventilator support. 3. Sedation protocol. 4. IV fluids, half normal at 60 mL/h. 5. Pulmonary consult. 6. We will obtain labs in the morning. 7. List her long term medications. 8. rocephen 2 gms IVPB daily Job ID: [id number] MTDD
[2018-08-25 11:30] LABS: Actual Bicarbonate (HCO3a) 30.2 mEq/L (22-28); Base Excess (BEa) -0.6 mEq/L (-2.0 to +3.0); Calcium, Ionized 1.14 mmol/L (1.12-1.30); Carboxyhemoglobin (COHb) 0.7 gm% (0.0-3.0); Hemoglobin (Hb) 10.4 g/dL (12.0-16.0); O2 Tension (PaO2) 101.3 mmHg (> 70.0)
[2018-08-25 11:32] LABS: CO2 Tension 92.4 mmHg (35.0-45.0); Puncture Site LRA; pH, Arterial 7.13 (7.35-7.45)
[2018-08-25] MEDS: cefTRIAXone\\ROCEPHIN 2 GM in Sodium Chloride 0.9% 100 ML IVPB SCH (11:44)
--- NOTE | 2018-08-25 13:18 | RAD ---
CHEST 1 VIEW: COMPARISON: 08/24/2018. HISTORY: Respiratory distress. Ventilated patient. FINDINGS: Redemonstration of endotracheal tube, nasogastric tube, and a left-sided transvenous defibrillator. Persistent cardiomegaly as well as interstitial/alveolar opacities involving the lung parenchyma, rig ht greater than left. Chronic changes in both shoulders are noted. IMPRESSION: No significant interval change. POS: [facility]
[2018-08-25 14:50] LABS: Actual Bicarbonate (HCO3a) 26.5 mEq/L (22-28); Calcium, Ionized 1.05 mmol/L (1.12-1.30); Carboxyhemoglobin (COHb) 1.1 gm% (0.0-3.0); Hemoglobin (Hb) 9.1 g/dL (12.0-16.0); O2 Tension (PaO2) 98.6 mmHg (> 70.0); Potassium - ABG Lab 3.61 mmol/L (3.70-5.30); pH, Arterial 7.43 (7.35-7.45)
[2018-08-25 14:51] LABS: Puncture Site RRA
--- NOTE | 2018-08-25 16:20 | OP ---
DATE OF PROCEDURE: 08/25/2018 PROCEDURE PERFORMED: Fiberoptic bronchoscopy with intubation. DESCRIPTION OF PROCEDURE: The patient was obtunded. Bite block was placed in her mouth. The scope was visualized. All cords appeared normal. The subglottic area was very erythematous. The scope was passed in through her cords with minimal difficulty and secured above the sandra. Right lower lobe, right upper lobe, right middle lobe, left lower lobe, and left upper lobe were visualized. No endobronchial lesions were seen. There were no significant secretions below the chronic, but she had copious secretions in her upper airway. These were suctioned clear. She tolerated the procedure well. Job ID: [id number]
--- NOTE | 2018-08-25 16:21 | PRG ---
DATE OF SERVICE: 08/25/2018 SUBJECTIVE: Ms. Snyder surprisingly was awake this morning. She nodded quickly to question. She moved all extremities. Still had her ecchymoses on her face. She denied neck pain. OBJECTIVE: LUNGS: Clear. HEART: Regular rhythm. S1 and S2 are normal. ABDOMEN: Soft and nontender. EXTREMITIES: Without clubbing, cyanosis, or edema. NEURO: Grossly nonfocal. LABORATORY DATA/IMAGING STUDIES: The computer system was down this morning. Did not have access to imaging or lab. Subsequent review of imaging shows no change in her chest x-ray. Blood gas this morning showed a pH of 7.43, CO2 of 41, and pO2 of 98. I recommended extubation after she passed spontaneous breathing trial. Probably, within an hour of extubation, she was noted to be severely bronchospastic and becoming less responsive. Her pH was 7.13, CO2 of 92, pO2 of 101 at that time. IMPRESSION: Respiratory failure secondary to chronic obstructive pulmonary disease exacerbation, which likely was why [facility] and required intubation upon arrival. This makes more sense than a stroke and she clearly would not have recovered from a devastating stroke that would lead to a comatose state. I have recommended re-intubation, this has been done successfully. We will continue mechanical ventilation. She will receive nebulizer treatments, antibiotics, steroids, DVT prophylaxis, GI prophylaxis, etc. I will be happy to follow the other physicians. Job ID: [id number]
[2018-08-25] MEDS ORDERED: Famotidine/PF 20 mg/2ml Vial SLOW IVP SCH (16:30)
[2018-08-25] MEDS: Propofol 1,000 MG/100 ML VIAL IV PRN (19:30)
[2018-08-25] MEDS ORDERED: Famotidine/PF 20 mg/2ml Vial ONE (19:36)
[2018-08-25] MEDS: methylPREDNISolone Sod Succ 40 MG VIAL IVP SCH (19:37)
[2018-08-25] MEDS: Enoxaparin Sodium 40 MG/0.4 ML SYRINGE SC SCH (20:10)
[2018-08-25 20:14] LABS: ALT (SGPT) 28 U/L (8-55); AST (SGOT) 55 U/L (5-34); Albumin 2.8 g/dL (3.4-4.8); Alkaline Phosphatase 79 U/L (40-150); Anion Gap 18 mmol/L (10-20); BUN (Urea Nitrogen) 18 mg/dL (9.8-20.1); Bilirubin, Total 0.7 mg/dL (0.2-1.2); Calc. Creatinine Clearance 55 mL/min (70-130); Calcium 8.2 mg/dL (7.8-10.44); Carbon Dioxide 25 mmol/L (23-31); Chloride 100 mmol/L (98-107); Estimated GFR-MDRD 52; Globulin 1.7 g/dL (2.4-3.5); Glucose 69 mg/dL (83-110); Potassium 3.7 mmol/L (3.5-5.1); Protein, Total 4.5 g/dL (5.8-8.1); Sodium 139 mmol/L (136-145)
[2018-08-25] MEDS ORDERED: Sodium Chloride 0.9% (PF) 10 ML VIAL FS PRN (20:51)
[2018-08-25] MEDS: Pantoprazole 40 MG VIAL IVP SCH (22:13)
[2018-08-25] MEDS: Sodium Chloride 0.45% 1,000 ML IV SCH (22:13)
[2018-08-26] MEDS: methylPREDNISolone Sod Succ 40 MG VIAL IVP SCH ×5 (00:45→23:37)
[2018-08-26] MEDS: Propofol 1,000 MG/100 ML VIAL IV PRN ×2 (04:50→17:18)
[2018-08-26] MEDS: Sodium Chloride 0.45% 1,000 ML IV SCH ×2 (05:10→10:00)
[2018-08-26 06:58] LABS: Actual Bicarbonate (HCO3a) 23.7 mEq/L (22-28); Base Excess (BEa) -0.3 mEq/L (-2.0 to +3.0); CO2 Tension 36.4 mmHg (35.0-45.0); Calcium, Ionized 1.06 mmol/L (1.12-1.30); Carboxyhemoglobin (COHb) 1.4 gm% (0.0-3.0); Hemoglobin (Hb) 9.4 g/dL (12.0-16.0); O2 Tension (PaO2) 69.6 mmHg (> 70.0); Potassium - ABG Lab 3.89 mmol/L (3.70-5.30); pH, Arterial 7.43 (7.35-7.45)
[2018-08-26 06:59] LABS: Puncture Site LRA
--- NOTE | 2018-08-26 08:20 | CON ---
DATE OF CONSULTATION: 08/24/2018 HISTORY OF PRESENT ILLNESS: Ms. Snyder is a 78-year-old female, who apparently fell at the retirement and landed square on her face. She awakened and was transported to the hospital and then went out, when she arrived at the hospital and subsequently was intubated. It is felt that she may have had a brain bleed. CT scans showed external trauma. Still she had midposition nonreactive pupils when she arrived. I was thinking that she probably had a midbrain stroke, but in any event, we feared we would sort this out overnight with mechanical ventilatory support and repeat evaluation in the morning. PAST MEDICAL HISTORY: Past medical history was not obtainable at the time of consultation last night because the computer system was down. Today, I find that she has been seen by Dr. Blake in the past and has severe COPD. Her last hospitalization here was in February 2017. At that time, she had respiratory failure with hypoxia and hypercapnia and was intubated. 1. Hypertension. 2. History of encephalopathy related to hypoxemia. 3. History of atrial fibrillation, diastolic heart failure. 4. Sleep apnea. 5. History of ESBL E. coli isolated in 2016. 6. History of remission in 2014 after admitting with altered mental status. It is felt to be secondary to hypoxemia and her COPD. 7. History of sleep apnea. 8. History of cardiac arrest in May 2014 with ventricular tachycardia and ventricular fibrillation. 9. Status post placement of a defibrillator after that event. 10. Chronic anemia. 11. History of electrolyte imbalance. FAMILY HISTORY: Negative for lung disease. SOCIAL HISTORY: Nonsmoker and nondrinker. ALLERGIES: URMILA INHIBITORS, CODEINE, GABAPENTIN, LORAZEPAM, SULFA, AND TRAMADOL. PHYSICAL EXAMINATION: VITAL SIGNS: Last night, she had 4 mm pupils reacted to 2 mm with eye opening. She had ecchymosis all across her forehead and her eyes. She had a C-collar on. NECK: She has a C-collar on. I could not examine the rest of her neck. LUNGS: Clear. HEART: Regular rhythm. S1 and S2, normal. ABDOMEN: Soft and nontender. EXTREMITIES: Without clubbing, cyanosis, or edema. Her toes were neutral. LABORATORY DATA: White count 5.1, hemoglobin 8.8, platelets 259. Sodium 138, potassium 3.5, chloride 98, bicarb 32, BUN 18, creatinine 1.04. A pH 7.54, CO2 of 33, pO2 of 319, that was on a rate of 16, I turned her rate down to 12. IMPRESSION: Respiratory failure of unclear etiology. Her fall and then awakening and then decline in mental status would argue that she was having perhaps a midbrain stroke. She had midposition nonreactive pupils when she arrived and now these are reacting, so we will just have to do serial neurological exams. I was unable to review imaging at the time of admission because the computer system in the hospital crashed. She subsequently is admitted to critical care unit to be followed closely. CRITICAL CARE TIME: 30 minutes. Job ID: [id number] MTDD
--- NOTE | 2018-08-26 08:20 | PRG ---
DATE OF SERVICE: 08/26/2018 TIME SPENT: 35 minutes of Critical Care time. SUBJECTIVE: This patient remains intubated on mechanical ventilation. She will wake up and follow some commands for me, but does not have much in the way of spontaneous respirations. She is currently sedated on fentanyl and propofol. OBJECTIVE: VITAL SIGNS: Temperature 98.1, pulse 81, blood pressure 113/53, O2 saturation 100%, respiratory rate 12. Intake for the last 24 hours was measured as 164, output 280. HEENT: Remarkable for a large hematoma above the right eye with bruising periorbital around the right eye. NECK: Without adenopathy or JVD. CHEST: Clear with distant breath sounds. CARDIAC: S1 and S2. Regular without murmur. ABDOMEN: Soft and nontender. EXTREMITIES: No clubbing, cyanosis, or edema. LABORATORY DATA: Sodium 139, potassium 3.7, chloride 100, CO2 of 25, BUN 18, creatinine 1.0, glucose 69, AST 55, ALT 28, albumin 2.8. A pH 7.43, pCO2 of 36, pO2 of 69 on SIMV rate 12, tidal volume 500, PEEP 5, pressure support 10, FiO2 of 30%. White blood cell count 5.1, hematocrit 29.9, platelet count 259. Chest x-ray from yesterday demonstrates what appears to be edema versus some type of contusion versus effusion on the right. The x-ray was not repeated today. ASSESSMENT: 1. Acute respiratory failure, requiring mechanical ventilation. 2. Underlying chronic obstructive pulmonary disease. 3. Status post fall with hematoma to the right forehead area. 4. Protein-calorie malnutrition. PLAN: 1. I do not think she is weanable at the current time. I turned down her rate this morning, and she would not breathe much on her own. This may be a sedation issue, and I have instructed the nurse to back down the sedation some. 2. She is continuing antibiotics, steroids, and nebulization treatments. 3. Initiate tube feeds. 4. Hopefully, extubate in the next 24 to 48 hours. Job ID: [id number]
[2018-08-26] MEDS ORDERED: Famotidine/PF 20 mg/2ml Vial SLOW IVP SCH (09:00)
[2018-08-26] MEDS: cefTRIAXone\\ROCEPHIN 2 GM in Sodium Chloride 0.9% 100 ML IVPB SCH (10:45)
[2018-08-26] MEDS ORDERED: Amiodarone 200 MG TAB PER TUBE SCH (20:15)
[2018-08-26] MEDS: Pantoprazole 40 MG VIAL IVP SCH (21:23)
[2018-08-26] MEDS: Enoxaparin Sodium 40 MG/0.4 ML SYRINGE SC SCH (21:23)
[2018-08-27] MEDS: Propofol 1,000 MG/100 ML VIAL IV PRN ×2 (02:08→22:54)
[2018-08-27] MEDS: Sodium Chloride 0.45% 1,000 ML IV SCH (02:23)
[2018-08-27] MEDS: methylPREDNISolone Sod Succ 40 MG VIAL IVP SCH ×4 (06:15→23:53)
[2018-08-27 06:45] LABS: Actual Bicarbonate (HCO3a) 25.6 mEq/L (22-28); Base Excess (BEa) 0.8 mEq/L (-2.0 to +3.0); CO2 Tension 41.8 mmHg (35.0-45.0); Calcium, Ionized 1.03 mmol/L (1.12-1.30); Hemoglobin (Hb) 9.2 g/dL (12.0-16.0); O2 Tension (PaO2) 96.6 mmHg (> 70.0); Potassium - ABG Lab 3.62 mmol/L (3.70-5.30); pH, Arterial 7.41 (7.35-7.45)
[2018-08-27 06:47] LABS: Puncture Site L.R.
[2018-08-27 07:16] LABS: #Lymphocytes 0.3 thou/uL (1.20-3.40); #Monocytes 0.3 thou/uL (0.11-0.59); #Neutrophils 8.4 thou/uL (1.40-6.50); %Basophils 0.2 % (0.0-1.0); %Eosinophils 0.2 % (0.0-10.0); %Lymphocytes 3.6 % (21.0-51.0); %Monocytes 3.1 % (0.0-10.0); %Neutrophils 92.8 % (42.0-75.0); Hemoglobin 9.3 g/dL (12.0-16.0); Mean Corpuscular HGB CONC 30.2 g/dL (32.0-36.0); Mean Corpuscular Hemoglobin 25.3 pg (27.0-31.0); Mean Corpuscular Volume 83.5 fL (78.0-98.0); Mean Platelet Volume 9.2 fL (7.4-10.4); Platelet Count 296 thou/uL (130-400); RBC Distribution Width 18.2 % (11.5-14.5); Red Blood Cell (RBC) Count 3.68 mill/uL (4.20-5.40)
[2018-08-27 07:31] LABS: Anion Gap 15 mmol/L (10-20); BUN (Urea Nitrogen) 33 mg/dL (9.8-20.1); Calc. Creatinine Clearance 36 mL/min (70-130); Calcium 7.7 mg/dL (7.8-10.44); Carbon Dioxide 25 mmol/L (23-31); Chloride 98 mmol/L (98-107); Estimated GFR-MDRD 34; Glucose 179 mg/dL (83-110); Potassium 3.8 mmol/L (3.5-5.1); Sodium 134 mmol/L (136-145)
[2018-08-27] MEDS: Bacitracin Zinc Ointment 30 gm TUBE TOP SCH (08:03)
[2018-08-27] MEDS: Amiodarone 200 MG TAB PER TUBE SCH (08:04)
--- NOTE | 2018-08-27 09:15 | RAD ---
PORTABLE CHEST: 08/27/2018 PROVIDED CLINICAL HISTORY: Pneumonia. COMPARISON: 08/25/2018 FINDINGS: Significant interval change with respect to the prior examination is not apparent. IMPRESSION: As above. POS: OFF
--- NOTE | 2018-08-27 09:35 | EKG ---
Test Reason : ER INDICATION Blood Pressure : / mmHG Vent. Rate : 081 BPM Atrial Rate : 090 BPM P-R Int : 000 ms QRS Dur : 096 ms QT Int : 508 ms P-R-T Axes : 000 079 264 degrees QTc Int : 590 ms Atrial fibrillation Low voltage QRS Prolonged QT Abnormal ECG Confirmed by GREGORY BYRNES D.O. ([id number]), makeup editor YVETTE DRAKE ([id number]) on 08/27/2018 9:35:03 AM Referred By: Confirmed By:GREGORY BYRNES D.O.
[2018-08-27] MEDS ORDERED: Sodium Chloride 0.45% 1,000 ML IV SCH (10:48)
[2018-08-27] MEDS ORDERED: Furosemide 40 MG/4 ML VIAL SLOW IVP SCH (11:00)
--- NOTE | 2018-08-27 11:04 | PRG ---
DATE OF SERVICE: 08/27/2018 SERVICE: Pulmonary Medicine. INTERVAL HISTORY: The patient is doing really well from a respiratory standpoint. She denies any current chest pain, shortness of breath, fevers, chills, nausea, or vomiting. She is breathing comfortably. She has no complaints. There were no significant overnight events. PHYSICAL EXAMINATION: VITAL SIGNS: Afebrile, pulse 97, blood pressure 125/74, respirations 8, and saturation 99% on 27% FiO2 and a PEEP of 5. GENERAL: The patient is awake and alert, in no apparent distress. LUNGS: Very good air entry. There is no prolonged expiratory phase. Extensive rhonchi present throughout bilateral lung [place]. HEART: Normal rate, regular. ABDOMEN: Soft, nontender, and nondistended. Bowel sounds are positive. MUSCULOSKELETAL: No cyanosis or clubbing. There is diffuse 2 to 3+ pitting throughout. : No Bains. NEUROLOGIC: Grossly nonfocal. LABORATORY DATA: WBC 9.0, hemoglobin 9.3, platelets 296,000, and neutrophil count is 93%. INR 1.5. A pH 7.41, pCO2 of 41, and pO2 of 96. Creatinine 1.51. Basic metabolic profile is otherwise unremarkable. Albumin 2.8. BNP 376, and historic high. Creatine kinase 30. Lactate 1.4. Troponin is negative. The white blood cell is elevated in the urine with positive nitrite and leukocyte esterase. C diff antigen and toxin are unremarkable. IMAGING STUDIES: Chest x-ray shows bilateral pleural effusions, the right is layering and likely larger. Endotracheal tube is less than a centimeter above the level of the sandra. Pulmonary vascular congestion is evident. Enteric catheter courses below the level of the diaphragm. ASSESSMENT: 1. Acute hypoxic respiratory failure. 2. Chronic obstructive pulmonary disease with acute exacerbation. 3. Protein calorie malnutrition, moderate. 4. Debility/deconditioning. 5. Status post fall with large hematoma in the forehead. 6. Acute kidney injury. 7. Urinary tract infection. DISCUSSION AND PLAN: The kidney injury is likely a contrast-induced nephropathy. The patient remains volume overloaded. I will adjust medications to account for this injury, though she still remains volume overloaded. I think we need to continue diuresing her through time. I will KVO her IV fluids. We will increase tube feeds as tolerated. I have made multiple adjustments to the ventilator. We will exercise her through the day on various levels of pressure support ventilation. If not, we will rest her back on mechanical ventilation. At this point, she demonstrates too much weakness to safely extubate. We will minimize sedation as tolerated. CRITICAL CARE TIME: 30 minutes. Job ID: [id number] MTDD
[2018-08-27] MEDS: cefTRIAXone\\ROCEPHIN 2 GM in Sodium Chloride 0.9% 100 ML IVPB SCH (11:16)
[2018-08-27] MEDS: Pantoprazole 40 MG VIAL IVP SCH (20:44)
[2018-08-27] MEDS: Enoxaparin Sodium 30 MG/0.3 ML SYRINGE SC SCH (20:44)
[2018-08-28 04:03] LABS: #Lymphocytes 0.2 thou/uL (1.20-3.40); #Monocytes 0.2 thou/uL (0.11-0.59); %Basophils 0.5 % (0.0-1.0); %Eosinophils 0.7 % (0.0-10.0); %Lymphocytes 2.2 % (21.0-51.0); %Neutrophils 93.7 % (42.0-75.0); Hemoglobin 8.6 g/dL (12.0-16.0); Mean Corpuscular HGB CONC 30.9 g/dL (32.0-36.0); Mean Corpuscular Hemoglobin 25.5 pg (27.0-31.0); Mean Corpuscular Volume 82.5 fL (78.0-98.0); Mean Platelet Volume 9.3 fL (7.4-10.4); Platelet Count 240 thou/uL (130-400); RBC Distribution Width 18.6 % (11.5-14.5); Red Blood Cell (RBC) Count 3.35 mill/uL (4.20-5.40); White Blood Cell (WBC) Count 7.5 thou/uL (4.8-10.8)
[2018-08-28 04:24] LABS: Anion Gap 15 mmol/L (10-20); BUN (Urea Nitrogen) 38 mg/dL (9.8-20.1); Calc. Creatinine Clearance 42 mL/min (70-130); Calcium 7.7 mg/dL (7.8-10.44); Carbon Dioxide 27 mmol/L (23-31); Chloride 99 mmol/L (98-107); Estimated GFR-MDRD 40; Glucose 191 mg/dL (83-110); Magnesium 1.5 mg/dL (1.6-2.6); Sodium 138 mmol/L (136-145)
[2018-08-28 04:27] LABS: Phosphorus 2.6 mg/dL (2.3-4.7)
[2018-08-28 04:37] LABS: Potassium 2.9 mmol/L (3.5-5.1)
[2018-08-28] MEDS: methylPREDNISolone Sod Succ 40 MG VIAL IVP SCH (05:39)
[2018-08-28] MEDS ORDERED: Potassium Chloride 40 MEQ in Sodium Chloride 0.9% 250 ML 250 ML IVPB PRN (06:21)
[2018-08-28] MEDS ORDERED: Potassium Chloride 40 MEQ in Premix Bag 1 BAG IVPB PRN (06:21)
[2018-08-28] MEDS ORDERED: Potassium Phosphate 9 MMOL in Sodium Chloride 0.9% 100 ML IVPB PRN (06:21)
[2018-08-28] MEDS ORDERED: Magnesium 2 GM/50 ML 2 GM in Premix Bag 1 BAG IVPB PRN (06:21)
[2018-08-28] MEDS ORDERED: Magnesium Oxide 400 MG TAB PO PRN ×2 (06:21)
[2018-08-28] MEDS ORDERED: PHOS-NAK 1 PKT PACK PO PRN ×2 (06:21)
[2018-08-28] MEDS ORDERED: CCU ELECTROLYTE REPLACEMENT PROTOCOL FS PRN (06:21)
[2018-08-28] MEDS ORDERED: Potassium Phosphate 15 MMOL in Sodium Chloride 0.9% 250 ML 250 ML IV PRN (06:21)
[2018-08-28] MEDS ORDERED: Potassium Chloride 20 MEQ TAB PO PRN (06:21)
[2018-08-28] MEDS ORDERED: Potassium Phosphate 12 MMOL in Sodium Chloride 0.9% 250 ML 250 ML IV PRN (06:21)
[2018-08-28] MEDS: Furosemide 40 MG/4 ML VIAL SLOW IVP SCH (07:58)
[2018-08-28] MEDS: Amiodarone 200 MG TAB PER TUBE SCH (08:02)
[2018-08-28] MEDS: Bacitracin Zinc Ointment 30 gm TUBE TOP SCH (08:21)
[2018-08-28] MEDS ORDERED: Potassium Chloride 40 MEQ in Sodium Chloride 0.9% 250 ML 250 ML IVPB SCH (08:30)
[2018-08-28] MEDS ORDERED: Magnesium Sulfate 4 GM in Sodium Chloride 0.9% 250 ML 250 ML IVPB SCH (08:30)
--- NOTE | 2018-08-28 08:39 | PRG ---
DATE OF SERVICE: 08/28/2018 SERVICE: Pulmonary Medicine. INTERVAL HISTORY: The patient is doing really well from respiratory standpoint. Breathing comfortably. We put on a spontaneous breathing trial this morning after long sedation holiday. She appears to be doing quite well. We will check on her intermittently to make certain she maintains that functionality. She denies any overnight events. She is a little bit agitated. She got started on some Precedex, and a low dose of propofol and fentanyl overnight for the agitation, but otherwise, there were no significant events. PHYSICAL EXAMINATION: VITAL SIGNS: Afebrile, pulse 77, blood pressure 135/75, respirations 7, and saturation 100% on 23% FiO2 and a PEEP of 5. GENERAL: The patient is awake and alert, in no apparent distress. LUNGS: Decent air entry. There is no prolonged expiratory phase. No wheezing, crackles, or rhonchi appreciated. HEART: Normal rate, regular. ABDOMEN: Soft, nontender, and nondistended. Bowel sounds are positive. MUSCULOSKELETAL: No cyanosis or clubbing. There is 2+ pitting throughout. GENITOURINARY: No Bains. NEUROLOGIC: Grossly nonfocal. LABORATORY DATA: WBC 7.5, hemoglobin 8.6, and platelets 240,000. INR 1.5. Creatinine 1.30 and gently downtrending. BUN 38, potassium 2.9, magnesium 1.5, and phosphorus 2.6. C difficile antigen and toxin are unremarkable. IMAGING DATA: Chest x-ray shows bilateral pleural effusions that are layering. Endotracheal tube is in good position. There is an enteric catheter coursing out of the field of view in the midline. ASSESSMENT: 1. Acute hypoxic respiratory failure, improving. 2. Chronic obstructive pulmonary disease with acute exacerbation. 3. Protein-calorie malnutrition, moderate. 4. Debility/deconditioning. 5. Status post fall with large hematoma on the forehead. 6. Acute kidney injury, likely contrast induced, resolving. DISCUSSION AND PLAN: I will replace the potassium and magnesium today. We will put her on a sedation holiday. If she meets criteria at the end of 30 minutes to an hour, we will consider extubation. Pulmonary/Critical Care will continue to follow along. CRITICAL CARE TIME: 30 minutes. Job ID: [id number]
[2018-08-28] MEDS: cefTRIAXone\\ROCEPHIN 2 GM in Sodium Chloride 0.9% 100 ML IVPB SCH (11:59)
[2018-08-28] MEDS ORDERED: DULoxetine 60 MG CAP PO SCH (12:45)
[2018-08-28] MEDS ORDERED: Bupropion 150 MG XL TAB PO SCH (12:45)
[2018-08-28] MEDS ORDERED: Potassium Chloride 10 MEQ TAB PO PRN (15:30)
[2018-08-28] MEDS ORDERED: RISEDRONATE SODIUM 5 MG PO SCH (15:30)
[2018-08-28] MEDS: Mometasone/Formoterol 120 PUFF INHALER INH SCH (19:13)
[2018-08-28] MEDS: hydrALAZINE 25 MG TAB PO SCH (20:21)
[2018-08-28] MEDS: Montelukast Sodium 10 mg Tablet PO SCH (20:21)
[2018-08-28] MEDS: Atorvastatin Calcium 20 MG TAB PO SCH (20:21)
[2018-08-28] MEDS: Mirtazapine 15 MG TAB PO SCH (20:21)
[2018-08-28] MEDS: Enoxaparin Sodium 30 MG/0.3 ML SYRINGE SC SCH (20:22)
[2018-08-28] MEDS: Pantoprazole 40 MG VIAL IVP SCH (20:29)
[2018-08-28] MEDS: Latanoprost 0.005% Ophth Soln 2.5 ml Bottle EA EYE SCH (20:40)
[2018-08-28] MEDS: Dorzolamide HCl 2% Ophth Soln 10 ml Bottle EA EYE SCH (20:42)
[2018-08-28] MEDS: Acetaminophen 325 MG TAB PO PRN (20:44)
[2018-08-29 05:23] LABS: #Eosinphils 0.1 thou/uL (0.0-0.7); #Lymphocytes 0.6 thou/uL (1.20-3.40); #Monocytes 1.7 thou/uL (0.11-0.59); #Neutrophils 12.2 thou/uL (1.40-6.50); %Eosinophils 0.7 % (0.0-10.0); %Lymphocytes 3.8 % (21.0-51.0); %Monocytes 11.7 % (0.0-10.0); %Neutrophils 83.8 % (42.0-75.0); Anisocytosis SLIGHT = 6-15 cells (100X) (0-5/hpf); Elliptocytes SLIGHT = 2-5 cells (100X) (0-1/hpf); Hemoglobin 9.3 g/dL (12.0-16.0); Hypochromia SLIGHT = 6-15 cells (100X) (0-5/hpf); MDiff Complete? YES; Mean Corpuscular HGB CONC 29.1 g/dL (32.0-36.0); Mean Corpuscular Hemoglobin 25.1 pg (27.0-31.0); Mean Corpuscular Volume 86.4 fL (78.0-98.0); Mean Platelet Volume 8.5 fL (7.4-10.4); Platelet Count 434 thou/uL (130-400); RBC Distribution Width 18.7 % (11.5-14.5); White Blood Cell (WBC) Count 14.5 thou/uL (4.8-10.8)
[2018-08-29 05:26] LABS: Anion Gap 13 mmol/L (10-20); BUN (Urea Nitrogen) 40 mg/dL (9.8-20.1); Calc. Creatinine Clearance 43 mL/min (70-130); Calcium 8.2 mg/dL (7.8-10.44); Carbon Dioxide 30 mmol/L (23-31); Chloride 103 mmol/L (98-107); Estimated GFR-MDRD 41; Glucose 112 mg/dL (83-110); Magnesium 2.6 mg/dL (1.6-2.6); Potassium 4.4 mmol/L (3.5-5.1); Sodium 142 mmol/L (136-145)
[2018-08-29] MEDS: Mometasone/Formoterol 120 PUFF INHALER INH SCH ×2 (06:36→19:21)
[2018-08-29] MEDS: DULoxetine 60 MG CAP PO SCH (10:13)
[2018-08-29] MEDS: hydrALAZINE 25 MG TAB PO SCH ×3 (10:13→20:59)
[2018-08-29] MEDS: Bupropion 150 MG XL TAB PO SCH (10:14)
[2018-08-29] MEDS: Amiodarone 200 MG TAB PER TUBE SCH (10:14)
[2018-08-29] MEDS: Bacitracin Zinc Ointment 30 gm TUBE TOP SCH (10:14)
[2018-08-29] MEDS: Aspirin 81 mg Enteric Coated Tablet PO SCH (10:14)
[2018-08-29] MEDS: Dorzolamide HCl 2% Ophth Soln 10 ml Bottle EA EYE SCH ×3 (10:15→21:00)
[2018-08-29] MEDS: Furosemide 40 MG/4 ML VIAL SLOW IVP SCH (10:18)
[2018-08-29] MEDS: cefTRIAXone\\ROCEPHIN 2 GM in Sodium Chloride 0.9% 100 ML IVPB SCH (10:18)
--- NOTE | 2018-08-29 13:19 | PRG ---
DATE OF SERVICE: 08/29/2018 SERVICE: Pulmonary Medicine. INTERVAL HISTORY: The patient is doing absolutely outstanding from respiratory standpoint. She has been weaned down to 1 L nasal cannula. She denies any current chest pain, fevers, chills. In fact, she indicates that she is doing the best breathing she has done in quite some time. She has no cough. No sputum production. Her lower extremity edema is much improved. PHYSICAL EXAMINATION: VITAL SIGNS: Afebrile, pulse 97, blood pressure 146/76, respirations 26, and saturation 100% on 1 L nasal cannula. GENERAL: The patient is awake and alert, in no apparent distress. LUNGS: Decent air entry. There is no prolonged expiratory phase. No wheezing or crackles are appreciated. HEART: Normal rate and regular. ABDOMEN: Soft, nontender, and nondistended. Bowel sounds are positive. MUSCULOSKELETAL: No cyanosis or clubbing. There is trace pitting in the bilateral lower extremities. NEUROLOGIC: Grossly nonfocal. LABORATORY DATA: WBC 14.5, hemoglobin 9.3 and stable, platelets 434,000. INR 1.5, creatinine 1.28, BUN 40. Basic metabolic profile is otherwise unremarkable. Potassium 4.4, magnesium 2.6. ASSESSMENT: 1. Acute hypoxic respiratory failure, improving. 2. Chronic obstructive pulmonary disease with acute exacerbation, improving. 3. Protein calorie malnutrition, moderate. 4. Debility/deconditioning. 5. Atrial flutter with 3:1 conduction and normal rate. 6. Status post fall with large hematoma in the forehead. 7. Acute kidney injury, resolved. DISCUSSION AND PLAN: The patient is doing wonderful from a respiratory standpoint. At this point, she is stable for transition out of the ICU to the telemetry unit. She has returned to euvolemia, so I will interrupt her Lasix. Cardiology consultation will be placed because she is currently in atrial flutter. I will continue to follow for the time being. Job ID: [id number]
[2018-08-29] MEDS: Acetaminophen 325 MG TAB PO PRN ×2 (16:14→20:59)
[2018-08-29] MEDS: Famotidine 20 MG TAB PO SCH (16:15)
[2018-08-29] MEDS: Montelukast Sodium 10 mg Tablet PO SCH (20:58)
[2018-08-29] MEDS: Atorvastatin Calcium 20 MG TAB PO SCH (20:59)
[2018-08-29] MEDS: Enoxaparin Sodium 30 MG/0.3 ML SYRINGE SC SCH (21:00)
[2018-08-29] MEDS: Latanoprost 0.005% Ophth Soln 2.5 ml Bottle EA EYE SCH (21:00)
[2018-08-29] MEDS: Mirtazapine 15 MG TAB PO SCH (21:04)
--- NOTE | 2018-08-29 22:38 | CON ---
DATE OF CONSULTATION: 08/29/2018 REASON FOR CONSULTATION: Atrial flutter. PRIMARY WOOL SORTER: Vance Rey MD. HISTORY OF PRESENT ILLNESS: Mrs. Snyder is a very pleasant 78-year-old white female, who comes to the hospital after a fall. She states that she was with a couple who have 2 big dogs. She tangled up on the dogs and she fell and hit her head. This story is different from what I see on the chart. Apparently, she was trying to walk without oxygen and she tripped and fell on her right side. She tells me that in fact she does have right-sided pain, she fell on her right elbow and she hit her right side of her forehead with large hematoma forming. She has a history of chronic atrial fibrillation and is chronically on amiodarone and Eliquis for stroke prophylaxis. She was admitted and eventually went into respiratory distress, had to be intubated to protect her airway, diuresed and eventually she has been extubated. Currently, Cardiology has been consulted as she has her history of chronic AFib and monitor shows what appears to be atrial flutter. Otherwise, Mrs. Snyder has no complaints except for right elbow and right shoulder pain. PAST MEDICAL HISTORY: 1. Chronic atrial fibrillation. 2. History of diastolic heart failure. 3. Chronic anemia. 4. Anxiety disorder. 5. Major depressive disorder. 6. Hypertension. 7. History of VT arrest with normal coronaries. 8. History of pneumonia. 9. COPD. 10. GERD. 11. DJD. PAST SURGICAL HISTORY: 1. AICD placement. 2. Cholecystectomy. 3. Colectomy. 4. Hernia repair. 5. Appendectomy. 6. Total knee arthroplasty. 7. Bilateral cataract surgery. OUTPATIENT MEDICATIONS: Include: 1. Amiodarone 200 mg daily. 2. Amlodipine 5 mg daily. 3. Breo Ellipta. 4. Bupropion. 5. BuSpar. 6. Caltrate. 7. Dorzolamide. 8. Eliquis 5 mg b.i.d. 9. Famotidine. 10. Lasix 10 mg daily. 11. Hydralazine 25 mg daily. 12. Metoprolol 25 mg b.i.d. 13. Lidocaine patches. 14. Latanoprost eyedrops. 15. Risedronate weekly. 16. Tylenol p.r.n. ALLERGIES: 1. URMILA INHIBITORS. 2. CODEINE. 3. GABAPENTIN. 4. LORAZEPAM. 5. LYRICA. 6. OXYCODONE. 7. SULFA DRUGS. 8. TRAMADOL. FAMILY HISTORY: Noncontributory. SOCIAL HISTORY: [facility]. No tobacco or drugs. REVIEW OF SYSTEMS: A 12-point review of systems was done and was all negative unless stated in the history of present illness. PHYSICAL EXAMINATION: VITAL SIGNS: Temperature 98.6, pulse 97, respiratory rate 28, saturating 92% on 3 L nasal cannula. GENERAL: Awake, alert, oriented x3. No distress. HEENT: Normocephalic, atraumatic. NECK: Supple. LUNGS: Reduced breath sounds bilaterally with mild crackles. CARDIOVASCULAR: S1-S2, regular heart rate in the in the 90s. Grade 2/6 systolic murmur. ABDOMEN: Soft with positive bowel sounds. EXTREMITIES: No edema. SKIN: Warm and dry. LABORATORY DATA: Laboratory work was reviewed. CBC, coags, ABGs, and chemistries were reviewed. Currently, she was hypokalemic yesterday at 2.9, 4.4 this morning. Creatinine is 1.3, GFR 41. BNP on admission was 378. UA with positive nitrites on admission. IMAGING: EKG was reviewed. It shows what appears to be coarse atrial fibrillation. There was very brief episode of where the atrial fibrillation organizes and looks like it is flutter. I would call this both mostly atrial fibrillation with brief runs of atrial flutter. Although on monitor, it seems to be atrial flutter. More than likely this is just course of AFib. ASSESSMENT AND PLAN: 1. Atrial fibrillation/atrial flutter. She is rate controlled at this time. We would repeat an echocardiogram to make sure that her left ventricular function is not significantly depressed. Otherwise, her last ejection fraction was about 65% to 70%, this was back in 2015. We will get an echo. 2. We will continue current regimen. 3. She has chronic atrial fibrillation and unlikely to be a candidate for any ablations that she has been rate controlled. Thank you for letting us to participate in the care of your patient. We will follow. Job ID: [id number]
[2018-08-30] MEDS: Mometasone/Formoterol 120 PUFF INHALER INH SCH ×2 (07:17→18:59)
[2018-08-30] MEDS: DULoxetine 60 MG CAP PO SCH (08:31)
[2018-08-30] MEDS: hydrALAZINE 25 MG TAB PO SCH ×3 (08:31→21:10)
[2018-08-30] MEDS: Bupropion 150 MG XL TAB PO SCH (08:31)
[2018-08-30] MEDS: Amiodarone 200 MG TAB PER TUBE SCH (08:31)
[2018-08-30] MEDS: Aspirin 81 mg Enteric Coated Tablet PO SCH (08:32)
[2018-08-30] MEDS: Famotidine 20 MG TAB PO SCH (08:32)
[2018-08-30] MEDS: Bacitracin Zinc Ointment 30 gm TUBE TOP SCH (08:32)
[2018-08-30] MEDS: Dorzolamide HCl 2% Ophth Soln 10 ml Bottle EA EYE SCH ×3 (08:32→21:23)
[2018-08-30] MEDS: cefTRIAXone\\ROCEPHIN 2 GM in Sodium Chloride 0.9% 100 ML IVPB SCH (11:43)
[2018-08-30] MEDS: Acetaminophen 325 MG TAB PO PRN (14:36)
[2018-08-30] MEDS: Brimonidine Tartrate 0.2% Ophth Soln 5 ml Bottle EA EYE SCH ×2 (14:38→21:23)
--- NOTE | 2018-08-30 17:04 | PRG ---
DATE OF SERVICE: 08/30/2018 SERVICE: Pulmonary Medicine. INTERVAL HISTORY: The patient is doing really well from respiratory standpoint. She is breathing comfortably. She has no complaints of chest pain, fevers, chills, nausea, or vomiting. She is coughing a little bit, but not bringing up any sputum. There has been no interval change to her condition otherwise. PHYSICAL EXAMINATION: VITAL SIGNS: Afebrile, pulse 99, blood pressure 152/72, respirations 20, and saturation 99%, currently on room air. GENERAL: The patient is awake and alert, in no apparent distress. LUNGS: Very good air entry. There is no prolonged expiratory phase. No wheezing is appreciated. HEART: Normal rate. Regular. ABDOMEN: Soft, nontender, and nondistended. Bowel sounds are positive. MUSCULOSKELETAL: No cyanosis or clubbing. No pitting in the bilateral lower extremities. NEUROLOGIC: Grossly nonfocal. IMAGING STUDIES: Echocardiogram shows normal ejection fraction of 55% to 60%. Atrial fibrillation underlies this study. There is a severely dilated left atrium. Marked enlargement of the right atrium is also noted. Severe mitral regurgitation is noted, elevated right ventricular systolic pressures are present as well as a pericardial effusion without any evidence of tamponade. ASSESSMENT: 1. Acute hypoxic respiratory failure, resolved. 2. Chronic obstructive pulmonary disease with acute exacerbation, resolving. 3. Protein-calorie malnutrition, moderate. 4. Debility/deconditioning. 5. Atrial fibrillation/flutter. 6. Acute on chronic diastolic heart failure, improved. 7. Mitral regurgitation, severe. 8. Pericardial effusion without tamponade. DISCUSSION AND PLAN: The patient is doing absolutely wonderful from respiratory standpoint. She is stable for transition out of the ICU to the telemetry unit. I will initiate a dose of Seroquel because of her acute psychotic delirium. We will get a right shoulder x-ray because she is complaining of pain in that region. Pulmonary/Critical Care will continue to follow along for the time being. Job ID: [id number]
--- NOTE | 2018-08-30 17:39 | RAD ---
THREE VIEWS OF THE RIGHT SHOULDER: 08/30/18 COMPARISON: 08/19/10. HISTORY: Right shoulder pain. FINDINGS: Three views of the right shoulder shows complete absence of the proximal aspect of the humerus. There is severe joint space narrowing of the glenohumeral joints. The humerus is high riding. The visualiz ed right thorax is unremarkable. 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 POS: C
[2018-08-30] MEDS: Atorvastatin Calcium 20 MG TAB PO SCH (21:10)
[2018-08-30] MEDS: Mirtazapine 15 MG TAB PO SCH (21:11)
[2018-08-30] MEDS: Montelukast Sodium 10 mg Tablet PO SCH (21:11)
[2018-08-30] MEDS: Enoxaparin Sodium 30 MG/0.3 ML SYRINGE SC SCH (21:11)
[2018-08-30] MEDS: Latanoprost 0.005% Ophth Soln 2.5 ml Bottle EA EYE SCH (21:23)
[2018-08-31 05:28] LABS: #Eosinphils 0.4 thou/uL (0.0-0.7); #Lymphocytes 1.4 thou/uL (1.20-3.40); #Monocytes 1.4 thou/uL (0.11-0.59); #Neutrophils 6.7 thou/uL (1.40-6.50); %Basophils 0.1 % (0.0-1.0); %Eosinophils 3.9 % (0.0-10.0); %Lymphocytes 13.9 % (21.0-51.0); %Monocytes 14.1 % (0.0-10.0); Hemoglobin 9.6 g/dL (12.0-16.0); Mean Corpuscular HGB CONC 28.9 g/dL (32.0-36.0); Mean Corpuscular Hemoglobin 25.3 pg (27.0-31.0); Mean Corpuscular Volume 87.7 fL (78.0-98.0); Mean Platelet Volume 8.9 fL (7.4-10.4); Platelet Count 341 thou/uL (130-400); RBC Distribution Width 18.4 % (11.5-14.5); Red Blood Cell (RBC) Count 3.79 mill/uL (4.20-5.40); White Blood Cell (WBC) Count 9.8 thou/uL (4.8-10.8)
[2018-08-31 05:44] LABS: Phosphorus 2.9 mg/dL (2.3-4.7)
[2018-08-31 05:45] LABS: Anion Gap 12 mmol/L (10-20); BUN (Urea Nitrogen) 22 mg/dL (9.8-20.1); Calc. Creatinine Clearance 65 mL/min (70-130); Calcium 8.7 mg/dL (7.8-10.44); Carbon Dioxide 33 mmol/L (23-31); Chloride 104 mmol/L (98-107); Estimated GFR-MDRD 65; Glucose 96 mg/dL (83-110); Magnesium 1.9 mg/dL (1.6-2.6); Potassium 3.7 mmol/L (3.5-5.1); Sodium 145 mmol/L (136-145)
[2018-08-31] MEDS: Mometasone/Formoterol 120 PUFF INHALER INH SCH ×2 (06:52→18:10)
[2018-08-31] MEDS: Bupropion 150 MG XL TAB PO SCH (09:35)
[2018-08-31] MEDS: Aspirin 81 mg Enteric Coated Tablet PO SCH (09:35)
[2018-08-31] MEDS: DULoxetine 60 MG CAP PO SCH (09:36)
[2018-08-31] MEDS: Famotidine 20 MG TAB PO SCH (09:36)
[2018-08-31] MEDS: hydrALAZINE 25 MG TAB PO SCH ×3 (09:36→22:07)
[2018-08-31] MEDS: Amiodarone 200 MG TAB PER TUBE SCH (09:36)
[2018-08-31] MEDS: Dorzolamide HCl 2% Ophth Soln 10 ml Bottle EA EYE SCH ×3 (09:37→22:07)
[2018-08-31] MEDS: Bacitracin Zinc Ointment 30 gm TUBE TOP SCH (09:37)
[2018-08-31] MEDS: Brimonidine Tartrate 0.2% Ophth Soln 5 ml Bottle EA EYE SCH ×3 (12:37→22:06)
[2018-08-31] MEDS: cefTRIAXone\\ROCEPHIN 2 GM in Sodium Chloride 0.9% 100 ML IVPB SCH (12:38)
--- NOTE | 2018-08-31 16:43 | PRG ---
DATE OF SERVICE: 08/31/2018 SERVICE: Pulmonary Medicine. INTERVAL HISTORY: The patient is doing fine from respiratory standpoint. Breathing comfortably. Has no complaints of chest discomfort, nausea, vomiting, fevers, or chills. She is most concerned right now about her dog. Otherwise, there has been no interval change to her condition. PHYSICAL EXAMINATION: VITAL SIGNS: Afebrile, pulse 92, blood pressure 132/66, respirations 20, and saturation 96% on 2 L nasal cannula. GENERAL: The patient is awake and alert, in no apparent distress. LUNGS: Decent air entry. Crackles are present. No prolonged expiratory phase or wheezing is appreciated. HEART: Normal rate and regular. ABDOMEN: Soft, nontender, and nondistended. Bowel sounds are positive. MUSCULOSKELETAL: No cyanosis or clubbing. There is 2+ pitting in the sacrum still. No pitting in the bilateral lower extremities. NEUROLOGIC: Grossly nonfocal. LABORATORY DATA: WBC 9.8, hemoglobin 9.6, platelets 341,000. Bicarb 33. Basic metabolic profile is otherwise unremarkable. Creatinine is downtrending to 0.85. Magnesium 1.9. IMAGING STUDIES: Shoulder x-ray shows severe degenerative changes without subluxation or acute osseous abnormality. ASSESSMENT: 1. Acute hypoxic respiratory failure, resolved. 2. Chronic obstructive pulmonary disease with acute exacerbation, resolved. 3. Protein-calorie malnutrition, moderate. 4. Debility/deconditioning. 5. Atrial fibrillation/flutter. 6. Acute on chronic diastolic heart failure. 7. Mitral regurgitation, severe. 8. Pericardial effusion without tamponade. DISCUSSION AND PLAN: The patient will need to be diuresed intermittently through time in order to euvolemia. I will replace potassium. At this point, the patient has no further requirements for inpatient Pulmonary/Critical Care opinion, and I will sign off. Please call with additional questions or concerns through time. Job ID: [id number]
[2018-08-31] MEDS: Acetaminophen 325 MG TAB PO PRN (18:40)
[2018-08-31] MEDS: Latanoprost 0.005% Ophth Soln 2.5 ml Bottle EA EYE SCH (22:06)
[2018-08-31] MEDS: Enoxaparin Sodium 30 MG/0.3 ML SYRINGE SC SCH (22:07)
[2018-08-31] MEDS: Montelukast Sodium 10 mg Tablet PO SCH (22:07)
[2018-08-31] MEDS: Mirtazapine 15 MG TAB PO SCH (22:08)
[2018-08-31] MEDS: Atorvastatin Calcium 20 MG TAB PO SCH (22:08)
[2018-09-01] MEDS: Mometasone/Formoterol 120 PUFF INHALER INH SCH ×2 (06:36→19:47)
[2018-09-01 07:02] LABS: Anion Gap 13 mmol/L (10-20); BUN (Urea Nitrogen) 19 mg/dL (9.8-20.1); Calc. Creatinine Clearance 70 mL/min (70-130); Calcium 8.8 mg/dL (7.8-10.44); Carbon Dioxide 33 mmol/L (23-31); Chloride 103 mmol/L (98-107); Estimated GFR-MDRD 71; Glucose 77 mg/dL (83-110); Potassium 4.2 mmol/L (3.5-5.1); Sodium 145 mmol/L (136-145)
[2018-09-01] MEDS: Potassium Chloride 20 MEQ TAB PO SCH (08:58)
[2018-09-01] MEDS: Bupropion 150 MG XL TAB PO SCH (08:59)
[2018-09-01] MEDS: busPIRone HCl 10 MG TAB PO SCH ×2 (08:59→21:00)
[2018-09-01] MEDS: Aspirin 81 mg Enteric Coated Tablet PO SCH (08:59)
[2018-09-01] MEDS: DULoxetine 60 MG CAP PO SCH (08:59)
[2018-09-01] MEDS ORDERED: Furosemide 40 MG/4 ML VIAL SLOW IVP SCH (09:00)
[2018-09-01] MEDS: Amiodarone 200 MG TAB PER TUBE SCH (09:16)
[2018-09-01] MEDS: Famotidine 20 MG TAB PO SCH (09:17)
[2018-09-01] MEDS: Brimonidine Tartrate 0.2% Ophth Soln 5 ml Bottle EA EYE SCH ×3 (09:17→21:01)
[2018-09-01] MEDS: Furosemide 40 MG TAB PO SCH (09:17)
[2018-09-01] MEDS: hydrALAZINE 25 MG TAB PO SCH ×3 (09:17→21:00)
[2018-09-01] MEDS: Dorzolamide HCl 2% Ophth Soln 10 ml Bottle EA EYE SCH ×3 (09:18→21:01)
[2018-09-01] MEDS: Bacitracin Zinc Ointment 30 gm TUBE TOP SCH (09:18)
[2018-09-01] MEDS: cefTRIAXone\\ROCEPHIN 2 GM in Sodium Chloride 0.9% 100 ML IVPB SCH (12:16)
[2018-09-01] MEDS: Atorvastatin Calcium 20 MG TAB PO SCH (21:00)
[2018-09-01] MEDS: Enoxaparin Sodium 30 MG/0.3 ML SYRINGE SC SCH (21:00)
[2018-09-01] MEDS: Metoprolol Tartrate 25 MG TAB PO SCH (21:00)
[2018-09-01] MEDS: Latanoprost 0.005% Ophth Soln 2.5 ml Bottle EA EYE SCH (21:02)
[2018-09-01] MEDS: Montelukast Sodium 10 mg Tablet PO SCH (21:02)
[2018-09-02 05:35] LABS: Anion Gap 12 mmol/L (10-20); BUN (Urea Nitrogen) 16 mg/dL (9.8-20.1); Calc. Creatinine Clearance 69 mL/min (70-130); Calcium 8.3 mg/dL (7.8-10.44); Carbon Dioxide 34 mmol/L (23-31); Chloride 100 mmol/L (98-107); Estimated GFR-MDRD 71; Glucose 82 mg/dL (83-110); Potassium 3.9 mmol/L (3.5-5.1); Sodium 142 mmol/L (136-145)
[2018-09-02] MEDS: Mometasone/Formoterol 120 PUFF INHALER INH SCH ×2 (06:56→19:17)
[2018-09-02] MEDS: Aspirin 81 mg Enteric Coated Tablet PO SCH (12:09)
[2018-09-02] MEDS: Bupropion 150 MG XL TAB PO SCH (12:09)
[2018-09-02] MEDS: busPIRone HCl 10 MG TAB PO SCH ×2 (12:09→20:58)
[2018-09-02] MEDS: Furosemide 40 MG TAB PO SCH (12:09)
[2018-09-02] MEDS: DULoxetine 60 MG CAP PO SCH (12:09)
[2018-09-02] MEDS: Potassium Chloride 20 MEQ TAB PO SCH (12:09)
[2018-09-02] MEDS: hydrALAZINE 25 MG TAB PO SCH ×3 (12:10→20:58)
[2018-09-02] MEDS: Metoprolol Tartrate 25 MG TAB PO SCH ×2 (12:11→20:59)
[2018-09-02] MEDS: Amiodarone 200 MG TAB PER TUBE SCH (12:11)
[2018-09-02] MEDS: Famotidine 20 MG TAB PO SCH (12:11)
[2018-09-02] MEDS: Brimonidine Tartrate 0.2% Ophth Soln 5 ml Bottle EA EYE SCH ×3 (12:12→20:57)
[2018-09-02] MEDS: Dorzolamide HCl 2% Ophth Soln 10 ml Bottle EA EYE SCH ×3 (12:12→20:58)
[2018-09-02] MEDS: Bacitracin Zinc Ointment 30 gm TUBE TOP SCH (12:12)
[2018-09-02] MEDS: Acetaminophen 325 MG TAB PO PRN ×2 (12:22→21:00)
[2018-09-02] MEDS: Atorvastatin Calcium 20 MG TAB PO SCH (20:57)
[2018-09-02] MEDS: Enoxaparin Sodium 30 MG/0.3 ML SYRINGE SC SCH (20:58)
[2018-09-02] MEDS: Latanoprost 0.005% Ophth Soln 2.5 ml Bottle EA EYE SCH (20:59)
[2018-09-02] MEDS: Montelukast Sodium 10 mg Tablet PO SCH (21:00)
[2018-09-03 06:44] LABS: Anion Gap 10 mmol/L (10-20); BUN (Urea Nitrogen) 14 mg/dL (9.8-20.1); Calc. Creatinine Clearance 54 mL/min (70-130); Carbon Dioxide 37 mmol/L (23-31); Chloride 99 mmol/L (98-107); Estimated GFR-MDRD 62; Glucose 78 mg/dL (83-110); Potassium 3.9 mmol/L (3.5-5.1); Sodium 142 mmol/L (136-145)
[2018-09-03] MEDS: Mometasone/Formoterol 120 PUFF INHALER INH SCH ×2 (07:32→18:43)
[2018-09-03] MEDS: Potassium Chloride 20 MEQ TAB PO SCH (07:56)
[2018-09-03] MEDS: Acetaminophen 325 MG TAB PO PRN (07:56)
[2018-09-03] MEDS: Dorzolamide HCl 2% Ophth Soln 10 ml Bottle EA EYE SCH ×3 (07:57→21:45)
[2018-09-03] MEDS: hydrALAZINE 25 MG TAB PO SCH ×3 (07:57→21:47)
[2018-09-03] MEDS: Bacitracin Zinc Ointment 30 gm TUBE TOP SCH (09:40)
[2018-09-03] MEDS: Brimonidine Tartrate 0.2% Ophth Soln 5 ml Bottle EA EYE SCH ×3 (09:40→21:40)
[2018-09-03] MEDS ORDERED: Ondansetron ODT 4 MG TAB PO PRN (11:54)
[2018-09-03] MEDS: busPIRone HCl 10 MG TAB PO SCH ×2 (12:48→21:46)
[2018-09-03] MEDS: Bupropion 150 MG XL TAB PO SCH (12:48)
[2018-09-03] MEDS: Aspirin 81 mg Enteric Coated Tablet PO SCH (12:48)
[2018-09-03] MEDS: Furosemide 40 MG TAB PO SCH (12:48)
[2018-09-03] MEDS: Metoprolol Tartrate 25 MG TAB PO SCH ×2 (12:49→21:46)
[2018-09-03] MEDS: DULoxetine 60 MG CAP PO SCH (12:49)
[2018-09-03] MEDS: Amiodarone 200 MG TAB PER TUBE SCH (12:49)
[2018-09-03] MEDS: Famotidine 20 MG TAB PO SCH (12:49)
--- NOTE | 2018-09-03 14:43 | PDOC.CTH ---
Cardiology Progress Note - Subjective Doing well. No new issues. - Objective Vital Signs Temp Pulse Resp BP BP Pulse Ox 09/03/18 11:23 97.4 F L 84 20 132/63 93 L 09/03/18 10:55 79 20 09/03/18 07:57 72 149/73 H 95 09/03/18 07:42 97.9 F 81 20 149/73 H 100 09/03/18 07:32 75 20 09/03/18 04:00 98.1 F 78 16 120/65 97 Admit Weight 164 lb 7.437 oz Weight 138 lb 6 oz 09/02/18 09/03/18 09/04/18 06:59 06:59 06:59 Intake Total 1020 300 Output Total 2600 1500 Balance -1580 -1200 - Physical Examination General/Neuro: alert & oriented x3, NAD Neck: no JVD present Lungs: CTA, unlabored respirations Heart: RRR Abdomen: NT/ND Extremities: + edema B (Trace) - Telemetry Telemetry Rhythm: Afib HR 70's - Labs Result Diagrams: 08/31/18 04:24 09/03/18 05:10 Troponin/CKMB Troponin I Less than 0.010 ng/mL (< 0.028) 08/25/18 06:30 - Assessment/Plan 1. Afib/flutter x 1 month, rate controlled. 2. Normal LV function at 55-60% 3. Acute on chronic diastolic heart failure. 4. Hx of VT/Vfib 2014 5. S/P dual chamber AICD 6. Mild CAD 7. Fall w/forehead hematoma 8. SHANNAN on CKD, resolved. PLAN: - CV stable - No new recs.
[2018-09-03] MEDS: Atorvastatin Calcium 20 MG TAB PO SCH (21:46)
[2018-09-03] MEDS: Montelukast Sodium 10 mg Tablet PO SCH (21:46)
[2018-09-03] MEDS: Enoxaparin Sodium 30 MG/0.3 ML SYRINGE SC SCH (21:49)
[2018-09-03] MEDS: Latanoprost 0.005% Ophth Soln 2.5 ml Bottle EA EYE SCH (21:52)
[2018-09-04] MEDS: Mometasone/Formoterol 120 PUFF INHALER INH SCH ×2 (08:11→18:36)
[2018-09-04] MEDS ORDERED: Ergocalciferol 1.25 MG(50,000 UNITS) CAP PO SCH (09:00)
[2018-09-04] MEDS: DULoxetine 60 MG CAP PO SCH (09:22)
[2018-09-04] MEDS: Amiodarone 200 MG TAB PER TUBE SCH (09:22)
[2018-09-04] MEDS: busPIRone HCl 10 MG TAB PO SCH ×2 (09:22→21:58)
[2018-09-04] MEDS: Potassium Chloride 20 MEQ TAB PO SCH (09:22)
[2018-09-04] MEDS: Metoprolol Tartrate 25 MG TAB PO SCH ×2 (09:23→21:56)
[2018-09-04] MEDS: Furosemide 40 MG TAB PO SCH (09:23)
[2018-09-04] MEDS: hydrALAZINE 25 MG TAB PO SCH ×3 (09:23→21:57)
[2018-09-04] MEDS: Bupropion 150 MG XL TAB PO SCH (09:23)
[2018-09-04] MEDS: Aspirin 81 mg Enteric Coated Tablet PO SCH (09:23)
[2018-09-04] MEDS: Famotidine 20 MG TAB PO SCH (09:23)
[2018-09-04] MEDS: Acetaminophen 325 MG TAB PO PRN (09:24)
[2018-09-04] MEDS: Bacitracin Zinc Ointment 30 gm TUBE TOP SCH (09:25)
[2018-09-04] MEDS: Brimonidine Tartrate 0.2% Ophth Soln 5 ml Bottle EA EYE SCH ×3 (09:25→21:57)
[2018-09-04] MEDS: Dorzolamide HCl 2% Ophth Soln 10 ml Bottle EA EYE SCH ×3 (09:25→21:58)
--- NOTE | 2018-09-04 13:25 | PDOC.CTH ---
Cardiology Progress Note - Subjective No new issues. No new complaints. - Objective Vital Signs Temp Pulse Pulse Resp BP BP BP 09/04/18 11:35 98.2 F 79 16 09/04/18 10:43 74 16 09/04/18 09:37 77 103/56 L 09/04/18 09:23 78 138/72 09/04/18 09:22 09/04/18 08:10 78 16 09/04/18 07:55 97.8 F 80 24 H 09/04/18 04:42 97.3 F L 79 16 126/58 L BP Pulse Ox Pulse Ox 09/04/18 11:35 109/58 L 96 09/04/18 10:43 97 09/04/18 09:37 96 09/04/18 09:23 09/04/18 09:22 98 09/04/18 08:10 98 09/04/18 07:55 138/72 96 09/04/18 04:42 100 Admit Weight 164 lb 7.437 oz Weight 141 lb 6.4 oz 09/03/18 09/04/18 09/05/18 06:59 06:59 06:59 Intake Total 300 Output Total 1500 500 300 Balance -1200 -500 -300 - Physical Examination General/Neuro: alert & oriented x3, NAD Neck: no JVD present Lungs: CTA, unlabored respirations Heart: other: (Irreg irreg) Abdomen: NT/ND Extremities: other: (no edema) - Telemetry Telemetry Rhythm: Aflutter kamla block - Labs Result Diagrams: 08/31/18 04:24 09/03/18 05:10 Troponin/CKMB Troponin I Less than 0.010 ng/mL (< 0.028) 08/25/18 06:30 - Assessment/Plan 1. Afib/flutter x 1 month, rate controlled. 2. Normal LV function at 55-60% 3. Acute on chronic diastolic heart failure. 4. Hx of VT/Vfib 2014 5. S/P dual chamber AICD 6. Mild CAD 7. Fall w/forehead hematoma 8. SHANNAN on CKD, resolved. PLAN: - Continue same meds. - PT. - High fall risk for anticoagulation.
[2018-09-04] MEDS: Montelukast Sodium 10 mg Tablet PO SCH (21:56)
[2018-09-04] MEDS: Enoxaparin Sodium 30 MG/0.3 ML SYRINGE SC SCH (21:57)
[2018-09-04] MEDS: Atorvastatin Calcium 20 MG TAB PO SCH (21:57)
[2018-09-04] MEDS: Latanoprost 0.005% Ophth Soln 2.5 ml Bottle EA EYE SCH (21:58)
[2018-09-05 05:48] LABS: #Eosinphils 0.2 thou/uL (0.0-0.7); #Lymphocytes 1.6 thou/uL (1.20-3.40); #Monocytes 1.5 thou/uL (0.11-0.59); #Neutrophils 6.5 thou/uL (1.40-6.50); %Basophils 0.5 % (0.0-1.0); %Eosinophils 2.1 % (0.0-10.0); %Lymphocytes 16.6 % (21.0-51.0); %Monocytes 14.8 % (0.0-10.0); %Neutrophils 66.2 % (42.0-75.0); Hemoglobin 9.5 g/dL (12.0-16.0); Mean Corpuscular HGB CONC 28.6 g/dL (32.0-36.0); Mean Corpuscular Hemoglobin 25.3 pg (27.0-31.0); Mean Corpuscular Volume 88.4 fL (78.0-98.0); Mean Platelet Volume 8.7 fL (7.4-10.4); Platelet Count 323 thou/uL (130-400); RBC Distribution Width 18.1 % (11.5-14.5); Red Blood Cell (RBC) Count 3.77 mill/uL (4.20-5.40); White Blood Cell (WBC) Count 9.9 thou/uL (4.8-10.8)
[2018-09-05 06:07] LABS: Anion Gap 12 mmol/L (10-20); BUN (Urea Nitrogen) 16 mg/dL (9.8-20.1); Calc. Creatinine Clearance 48 mL/min (70-130); Calcium 8.3 mg/dL (7.8-10.44); Carbon Dioxide 36 mmol/L (23-31); Chloride 98 mmol/L (98-107); Estimated GFR-MDRD 50; Glucose 82 mg/dL (83-110); Potassium 3.9 mmol/L (3.5-5.1); Sodium 142 mmol/L (136-145)
[2018-09-05] MEDS: Mometasone/Formoterol 120 PUFF INHALER INH SCH ×2 (07:07→18:28)
[2018-09-05] MEDS: Potassium Chloride 20 MEQ TAB PO SCH (09:46)
[2018-09-05] MEDS: Aspirin 81 mg Enteric Coated Tablet PO SCH (09:46)
[2018-09-05] MEDS: busPIRone HCl 10 MG TAB PO SCH ×2 (09:46→20:32)
[2018-09-05] MEDS: Bupropion 150 MG XL TAB PO SCH (09:47)
[2018-09-05] MEDS: DULoxetine 60 MG CAP PO SCH (09:47)
[2018-09-05] MEDS: Amiodarone 200 MG TAB PER TUBE SCH (09:47)
[2018-09-05] MEDS: Famotidine 20 MG TAB PO SCH (09:47)
[2018-09-05] MEDS: hydrALAZINE 25 MG TAB PO SCH ×2 (09:47→20:33)
[2018-09-05] MEDS: Metoprolol Tartrate 25 MG TAB PO SCH ×2 (09:47→20:33)
[2018-09-05] MEDS: Furosemide 40 MG TAB PO SCH (09:48)
[2018-09-05] MEDS: Bacitracin Zinc Ointment 30 gm TUBE TOP SCH (09:49)
[2018-09-05] MEDS: Dorzolamide HCl 2% Ophth Soln 10 ml Bottle EA EYE SCH ×3 (09:49→20:34)
[2018-09-05] MEDS: Latanoprost 0.005% Ophth Soln 2.5 ml Bottle EA EYE SCH (09:49)
[2018-09-05] MEDS: Brimonidine Tartrate 0.2% Ophth Soln 5 ml Bottle EA EYE SCH ×3 (09:50→20:34)
[2018-09-05 10:47] VITALS: BMI 26.8
[2018-09-05] MEDS: Enoxaparin Sodium 30 MG/0.3 ML SYRINGE SC SCH (20:29)
[2018-09-05] MEDS: Atorvastatin Calcium 20 MG TAB PO SCH (20:33)
[2018-09-05] MEDS: Montelukast Sodium 10 mg Tablet PO SCH (20:46)
[2018-09-06] MEDS: Mometasone/Formoterol 120 PUFF INHALER INH SCH ×2 (07:19→19:32)
[2018-09-06] MEDS: DULoxetine 60 MG CAP PO SCH (08:32)
[2018-09-06] MEDS: busPIRone HCl 10 MG TAB PO SCH ×2 (08:32→20:32)
[2018-09-06] MEDS: Bupropion 150 MG XL TAB PO SCH (08:32)
[2018-09-06] MEDS: Aspirin 81 mg Enteric Coated Tablet PO SCH (08:32)
[2018-09-06] MEDS: Famotidine 20 MG TAB PO SCH (08:33)
[2018-09-06] MEDS: Metoprolol Tartrate 25 MG TAB PO SCH ×2 (08:33→20:33)
[2018-09-06] MEDS: Furosemide 40 MG TAB PO SCH (08:33)
[2018-09-06] MEDS: Amiodarone 200 MG TAB PER TUBE SCH (08:33)
[2018-09-06] MEDS: Brimonidine Tartrate 0.2% Ophth Soln 5 ml Bottle EA EYE SCH ×3 (08:33→20:35)
[2018-09-06] MEDS: Potassium Chloride 20 MEQ TAB PO SCH (08:33)
[2018-09-06] MEDS: hydrALAZINE 25 MG TAB PO SCH ×2 (08:33→20:32)
[2018-09-06] MEDS: Dorzolamide HCl 2% Ophth Soln 10 ml Bottle EA EYE SCH ×3 (08:34→20:35)
[2018-09-06] MEDS: Bacitracin Zinc Ointment 30 gm TUBE TOP SCH (11:44)
[2018-09-06] MEDS: Montelukast Sodium 10 mg Tablet PO SCH (20:32)
[2018-09-06] MEDS: Latanoprost 0.005% Ophth Soln 2.5 ml Bottle EA EYE SCH (20:35)
[2018-09-06] MEDS: Enoxaparin Sodium 30 MG/0.3 ML SYRINGE SC SCH (20:36)
[2018-09-06] MEDS: Atorvastatin Calcium 20 MG TAB PO SCH (20:59)
[2018-09-07] MEDS: Mometasone/Formoterol 120 PUFF INHALER INH SCH ×2 (07:24→19:38)
[2018-09-07] MEDS: Dorzolamide HCl 2% Ophth Soln 10 ml Bottle EA EYE SCH ×2 (08:41→15:08)
[2018-09-07] MEDS: hydrALAZINE 25 MG TAB PO SCH (08:44)
[2018-09-07] MEDS: Aspirin 81 mg Enteric Coated Tablet PO SCH (08:45)
[2018-09-07] MEDS: Amiodarone 200 MG TAB PER TUBE SCH (08:45)
[2018-09-07] MEDS: Bupropion 150 MG XL TAB PO SCH (08:45)
[2018-09-07] MEDS: busPIRone HCl 10 MG TAB PO SCH (08:45)
[2018-09-07] MEDS: Potassium Chloride 20 MEQ TAB PO SCH (08:45)
[2018-09-07] MEDS: Metoprolol Tartrate 25 MG TAB PO SCH (08:45)
[2018-09-07] MEDS: DULoxetine 60 MG CAP PO SCH (08:45)
[2018-09-07] MEDS: Furosemide 40 MG TAB PO SCH (08:45)
[2018-09-07] MEDS: Famotidine 20 MG TAB PO SCH (08:59)
[2018-09-07] MEDS: Brimonidine Tartrate 0.2% Ophth Soln 5 ml Bottle EA EYE SCH ×2 (08:59→15:08)
[2018-09-07 16:21] VITALS: TEMP 98.1
[2018-09-07 21:40] VITALS: BP 136/66
--- NOTE | 2018-09-09 09:47 | DIS ---
DATE OF ADMISSION: 08/24/2018 DATE OF DISCHARGE: 09/07/2018 ADMITTING DIAGNOSES: 1. Acute respiratory failure, status post fall, large hematoma to the forehead. 2. Urinary tract infection. 3. Chronic obstructive pulmonary disease, acute exacerbation. 4. Chronic atrial fibrillation. 5. Chronic anemia. 6. Obstructive sleep apnea. 7. Congestive heart failure. FINAL DIAGNOSES: 1. Acute respiratory failure secondary to chronic obstructive pulmonary disease exacerbation, improved. 2. Status post fall. 3. urinary tract infection 4. Protein-calorie malnutrition, moderate. 5. Severe debility and deconditioning. 6. Atrial fibrillation, chronic. 7. Acute on chronic diastolic heart failure, improved. 8. Severe mitral regurgitation. 9. Chronic anemia. 10. History of obstructive sleep apnea. 11. History of anxiety disorder. BRIEF SUMMARY OF HOSPITAL COURSE: Ms. Snyder is a 78-year-old female who was brought in because of fall at the [facility]. The patient was confused and tripped and fell and sustained a large hematoma to the head. The patient was in respiratory failure due to COPD exacerbation. The patient continued neb treatments and steroids. the patient slowly improved with treatment. After few days of treatment, She was weaned off the respirator and extubated. The patient tolerated the extubation well. The patient was also seen by canvas baster jumpbasting in view of atrial flutter. He felt the patient had atrial fibrillation versus flutter, but the rate is controlled, suggested an echocardiogram. Echocardiogram revealed normal LV function and severe mitral regurgitation. Her blood thinner was stopped because of frequent falls. The patient was started on physical therapy, was very deconditioned, very weak, unable to ambulate by herself. In view of that, the patient was evaluated by rehab, it took few days for her insurance to approve for inpatient rehab. Finally, she was approved and was transferred. 1. Latanoprost eyedrops one drop each eye daily. 2. Dorzolamide eyedrops one drop each eye t.i.d. 3. Cymbalta 60 mg daily. 4. Singulair 10 mg daily. 5. ASA daily 6. Wellbutrin XL 150 a day. 7. Amlodipine 5 mg,bid 8. Simvastatin was stopped 9. Amiodarone 200 mg daily. 10. Hydralazine dose was changed 11. Ventolin inhaler 2 puffs q.i.d. p.r.n. 12. tyelenol prn 13. Pepcid 20 mg b.i.d. 14. Eliquis was discontinued. 15. BuSpar 10 mg b.i.d. 16. Breo Ellipta 1 inhalation daily. 17. Tessalon Perles 100 mg t.i.d. p.r.n. 18. DuoNeb q.i.d. 19. Aspirin 81 mg. 20. Atorvastatin 20 mg daily. 21. Metoprolol 12.5 b.i.d. 22. Zofran p.r.n. 23. KCl 20 mEq jannette The patient will continue physical therapy at the rehab. Job ID: [id number] [facility]
== END 2018-09-07 20:52 | DRG 208 ==
LOC: ERS 17:51 → CCU 19:00 → UNDOADMIN 08-25 08:44 → CCU 08-25 08:44 → 2SE 08-30 13:42 → 2NO 09-04 23:53
PROVIDERS: ADMIT Internal Medicine; ATTEND Internal Medicine
PROC: 5A1935Z Respiratory Ventilation, Less than 24 Consecutive Hours (ICD-10-PCS; 2018-08-24)
PROC: 0BH18EZ Insertion of Endotracheal Airway into Trachea, Via Natural or Artificial Opening Endoscopic (ICD-10-PCS; principal; 2018-08-25)
PROC: 5A1935Z Respiratory Ventilation, Less than 24 Consecutive Hours (ICD-10-PCS; 2018-08-25)
DX: J96.01 Acute respiratory failure with hypoxia (principal); I50.33 Acute on chronic diastolic (congestive) heart failure; I13.0 Hypertensive heart and chronic kidney disease with heart failure and stage 1 through stage 4 chronic kidney disease, or unspecified chronic kidney disease; N17.9 Acute kidney failure, unspecified; N30.00 Acute cystitis without hematuria; E44.0 Moderate protein-calorie malnutrition; I48.92 Unspecified atrial flutter; J44.1 Chronic obstructive pulmonary disease with (acute) exacerbation; I25.10 Atherosclerotic heart disease of native coronary artery without angina pectoris; S00.83XA Contusion of other part of head, initial encounter; F32.9 Major depressive disorder, single episode, unspecified; G47.33 Obstructive sleep apnea (adult) (pediatric); D63.1 Anemia in chronic kidney disease; K21.9 Gastro-esophageal reflux disease without esophagitis; M19.90 Unspecified osteoarthritis, unspecified site; I34.0 Nonrheumatic mitral (valve) insufficiency; I48.2 Chronic atrial fibrillation; M79.7 Fibromyalgia; W01.0XXA Fall on same level from slipping, tripping and stumbling without subsequent striking against object, initial encounter; F41.9 Anxiety disorder, unspecified; Z88.6 Allergy status to analgesic agent; Z88.2 Allergy status to sulfonamides; Z88.8 Allergy status to other drugs, medicaments and biological substances; Z95.810 Presence of automatic (implantable) cardiac defibrillator; Z79.01 Long term (current) use of anticoagulants; Z87.01 Personal history of pneumonia (recurrent); Z98.42 Cataract extraction status, left eye; Z98.41 Cataract extraction status, right eye; Z90.49 Acquired absence of other specified parts of digestive tract; Z88.1 Allergy status to other antibiotic agents
CPT/HCPCS: 36415; 36416; 51702; 70450; 70496; 70498; 71045; 72125; 80048; 80053; 81003; 81015; 82550; 82805; 83605; 83735; 83880; 84100; 84484; 85025; 85610; 85730; 86850; 86900; 86901; 87324; 87449; 93005; 93010; 93306; 94002; 94003; 94640; 94664; 96361; 96365; C9113; J0696; J1650; J1940; J2704; J2920; J3010; J3475; J3480; J3490; J7050; J7620; Q0162; Q9966; S0028

== ENCOUNTER 2018-09-28 23:42 | Inpatient (IN) | payer MEDICARE ==
[2018-09-29 00:23] LABS: Hemoglobin 10.3 g/dL (12.0-16.0); Mean Corpuscular HGB CONC 30.2 g/dL (32.0-36.0); Mean Corpuscular Volume 89.4 fL (78.0-98.0); Platelet Count 302 thou/uL (130-400); RBC Distribution Width 17.9 % (11.5-14.5); Red Blood Cell (RBC) Count 3.82 mill/uL (4.20-5.40); White Blood Cell (WBC) Count 8.6 thou/uL (4.8-10.8)
[2018-09-29 00:42] LABS: Band 2 % (5-11); Eosinophils 6 % (0-10); Hypochromia SLIGHT = 6-15 cells (100X) (0-5/hpf); Lymphocytes 7 % (21-51); MDiff Complete? YES; Monocytes 17 % (0-10); Myelocyte 1 % (0-0); Neutrophil 67 % (42-75)
[2018-09-29 00:43] LABS: ALT (SGPT) 48 U/L (8-55); AST (SGOT) 83 U/L (5-34); Albumin 3.7 g/dL (3.4-4.8); Alkaline Phosphatase 79 U/L (40-150); Anion Gap 14 mmol/L (10-20); BUN (Urea Nitrogen) 14 mg/dL (9.8-20.1); Bilirubin, Total 0.8 mg/dL (0.2-1.2); Calc. Creatinine Clearance 0 mL/min (70-130); Calcium 9.6 mg/dL (7.8-10.44); Carbon Dioxide 26 mmol/L (23-31); Chloride 102 mmol/L (98-107); Estimated GFR-MDRD 65; Globulin 2.3 g/dL (2.4-3.5); Glucose 106 mg/dL (83-110); Potassium 4.7 mmol/L (3.5-5.1); Sodium 137 mmol/L (136-145)
[2018-09-29] MEDS ORDERED: Succinylcholine Chloride 20 MG/ML 10 ml SYRINGE FS ONE (01:10)
[2018-09-29] MEDS ORDERED: Midazolam HCl 5 mg/ml Vial ONE ×2 (01:24→01:48)
[2018-09-29] MEDS ORDERED: Fentanyl 100 MCG/2 ML VIAL ONE (01:42)
--- NOTE | 2018-09-29 01:47 | PDOC.FPRHP ---
Addendum entered and electronically signed by Danyelle Rosado DO 09/29/18 10 :16: Upper level attestation: HPI: 78 year old female that was recently discharged from rehab presented with weakness and dyspnea. Patient reportedly called for lift assist help because she was having difficulty moving her legs. When help arrived, patient was reportedly short of breath and had oxygen sats in the low 80s. She normally uses 2L of O2, but she was requiring more. Patient was brought in by EMS. Reportedly, when she first arrived her exam was fairly benign. However, she started to become altered and confused so a CT scan of the brain was ordered down in the ED. Upon returning from CT scanner, patient started to have agonal breathing, increased work of breathing, and was noted to be in respiratory distress. She was then intubated and sedated. Patient has reportedly been admitted to the hospital on several different occasions for COPD exacerbations. She has been intubated on a number of occasions. PE: General: Sedated and on ventilator. Card: Irregularly irregular rhythm, blowing systolic murmur Resp: Sedated and on ventilator. No appreciable rales or rhonchi Abdomen: Soft, no appreciable masses Ext: No edema A/P: 1. Acute respiratory failure 2/2 CHF exacerbation vs. COPD exacerbation - Patient intubated and sedated. Will admit to ICU. - Patient s/p 1.5L NS. - Central line in right IJ as patient remained hypotensive despite fluid resuscitation - BP's low likely 2/2 versed from sedation. Once versed d/c'd, BP's responded appropriately - Strict I&O's - Bains catheter - Pulm consulted from ED; appreciate recs - CXR after central line shows pulmonary vascular congestion; will give 20 mg IV lasix and any additional as needed - BNP 800's which is increased from baseline - Will add Levoquin for COPD exacerbation - Duonebs MOISES and PRN - Will add steroids - Wean from ventilator as tolerated - Considered PE as possible cause as patient recently taken off of eliquis d/t frequent falls. Would consider CTA of suspicion remains high. - Would hold off on fluids given CHF exacerbation - Last echo 08/2018 HFpEF, severe mitral and pulmonic regurgitation. Large pericardial effusion, pulmonary HTN - Will repeat echo given large pericardial effusion on last echo 2. Afib - Last d/c summary states patient taken off of eliquis d/t frequent falls - High risk for CVA 3. Anemia - Trend H&H 4. Anxiety - Continue home medications when off ventilator 5. Major depression - Continue home medications when off ventilator 6. HTN - Hold BP medications given hypotension 7. COPD - See plan as above 8. GERD - Continue home medications 9. DDD - Continue home medications when off sedation 10. ADRIANA - Patient with pulmonary HTN noted on last echo - Uncertain of whether she uses BiPAP/CPAP at living facility Original Note: - History of Present Illness Chief Complaint: Respiratory Failure History of Present Illness: 78yo female w/ PMHx of COPD, CHF, and previous respiratory failure presented to the ED today with complaints of weakness and decreased saturations. Pt was discharged from [facility] rehab today. She called EMS for a lift assist because her legs felt weak. While there they noted that the pt's sats were in the mid 80 's while on her 2L of home O2 and she was brought in for further evaluation. Upon arrival to the ED the pt was alert and talking although had mild increased work of breathing. Later in her admission she started to have decreased mentation and alertness along with gasping breaths. She was subsequently intubated and had a central line placed for hypotension with MAPs around 50. Review of the pts records showed that she was recently admitted on August 24 for a similar episode following a fall that resulted in her subsequently being intubated and later discharged to [facility] for inpt rehab. During that stay she was diagnosed with a COPD exacerbation and had an echo that showed severe mitral and tricuspid regurgitation, EF of 55-60%, pulmonary HTN, and a moderate- severe pericadial effusion without tamponade. Pt reported to staff prior to intubation that she has been intubated approximately 7 times. ED Course: Pt's respiratory status decompensated while in the ED and was subsequently intubated. Her pressures dropped with MAPs in the high 40's so she was bolus'd a liter and a central line was placed. After placement her pressures increased and no pressers were needed. CXR subsequently showed near white out on the left indicating fluid overload so lasix was ordered when she got to the floor. - Allergies/Adverse Reactions Allergies Allergy/AdvReac Type Severity Reaction Status Date / Time URMILA Inhibitors Allergy Severe Swollen Verified 08/27/18 18:05 Lips codeine Allergy Verified 08/27/18 18:05 gabapentin Allergy Verified 08/27/18 18:05 hydrocodone Allergy Verified 08/27/18 18:05 lorazepam [From Ativan] Allergy Verified 08/27/18 18:05 oxycodone Allergy Verified 08/27/18 18:05 pregabalin [From Lyrica] Allergy Verified 08/27/18 18:05 Sulfa (Sulfonamide Allergy Verified 08/27/18 18:05 Antibiotics) tramadol Allergy Verified 08/27/18 18:05 - Home Medications Medication Instructions Recorded Confirmed Type Brimonidine Tartrate [Brimonidine 1 drop EA EYE TID 05/23/14 09/29/18 History Tartrate 0.15% Ophth Soln] DULoxetine [Cymbalta] 60 mg PO DAILY 05/23/14 09/29/18 History Dorzolamide HCl [Dorzolamide HCl 1 drop EA EYE TID 05/23/14 09/29/18 History 2% Ophth Soln] Latanoprost [Xalatan 0.005% Ophth 1 drop EA EYE HS 05/23/14 09/29/18 History Soln] Montelukast Sodium 10 mg PO HS 05/23/14 09/29/18 History Bupropion HCl [buPROPion HCl XL] 150 mg PO QAM 02/18/17 09/29/18 History Risedronate Sodium 35 mg PO Q7DAYS 02/18/17 09/29/18 History Benzonatate [Tessalon] 100 mg PO TID PRN 08/27/18 09/29/18 History Calcium Carbonate/Vitamin D3 1 tablet PO BID 08/27/18 09/29/18 History [Calcium 600 + Vitamin D 400] Famotidine [Pepcid] 20 mg PO BID 08/27/18 09/29/18 History Fluticasone/Vilanterol [Breo 1 inh IH DAILY 08/27/18 09/29/18 History Ellipta] Ipratropium/Albuterol Sulfate 3 ml NEB [id number] PRN 08/27/18 09/29/18 History [DuoNeb] Ventolin HFA Inhaler 2 puff INH Q6HR PRN 08/27/18 09/29/18 History busPIRone HCl [Buspirone HCl] 10 mg PO BID 08/27/18 09/29/18 History Acetaminophen [Tylenol Regular 1 - 2 tab PO Q4HR PRN #0 09/07/18 09/29/18 Rx Strength] Aspirin [Ecotrin Low Strength] 81 mg PO DAILY tab 09/07/18 09/29/18 Rx Atorvastatin Calcium [Lipitor] 20 mg PO HS tab 09/07/18 09/29/18 Rx Ergocalciferol [Drisdol] 1.25 mg PO Q7DAYS cap 09/07/18 09/29/18 Rx Furosemide 40 mg PO DAILY #0 09/07/18 09/29/18 Rx Metoprolol Tartrate [Lopressor] 12.5 mg PO BID tab 09/07/18 09/29/18 Rx Ondansetron [Zofran ODT] 4 mg PO Q6H PRN tab 09/07/18 09/29/18 Rx Potassium Chloride [K-Dur] 20 meq PO QAM-WM tab 09/07/18 09/29/18 Rx QUEtiapine Fumarate [SEROquel] 25 mg PO HS tab 09/07/18 09/29/18 Rx hydrALAZINE [Apresoline] 25 mg PO BID #0 09/07/18 09/29/18 Rx - History PMHx: Afib, CHF, anemia, anxiety, major depression, HTN, COPD, GERD, DDD, ADRIANA PSHx: AICD, cholecystectomy, colectomy, hernia repair, appendectomy, total knee replacement, bilateral cataract FHx: Non contributory Social: Unable to assess following intubation, review of records was non contributory - Review of Systems ROS unobtainable: due to endotracheal tube Respiratory: reports: shortness of breath - Vital signs BP: 96/47, Pulse: 59, Resp: 16, Pain: UTR, O2 sat: 100 on Ventilator, Time: 09/29 03:03. - Physical Exam Constitutional: NAD -Constitutional: sedated comfortably, will intermittently make small motions with extremities -HEENT: Endotracheal and orogastric tube in place, small amount of dried blood around upper lip without visible incision or abrasion Neck: supple, trachea midline -Neck: Right IJ central venous catheter in place Heart: RRR, pulses present, no edema, other (Distant systolic ejection murmur, difficult to grade over ventilor respirations) Lungs: CTAB, good air movement, no rales/rhonchi, no wheezing, other (decreased/ absent breath sounds in [place]) Abdomen: soft, bowel sounds present, no masses/distention Musculoskeletal: normal structure -Neurological: Unable to assess due to sedation and intubation Skin: no rash/lesions, no jaundice Heme/Lymphatic: no unusual bruising or bleeding, no purpura, no petechia Psychiatric: other (unable to asses) FMR H&P: Results - Labs Result Diagrams: 09/30/18 03:46 09/30/18 03:46 Lab results: WBC 8.6 thou/uL (4.8-10.8) 09/29/18 00:09 Hgb 10.3 g/dL (12.0-16.0) L 09/29/18 00:09 Hct 34.2 % (36.0-47.0) L 09/29/18 00:09 MCV 89.4 fL (78.0-98.0) 09/29/18 00:09 Plt Count 302 thou/uL (130-400) 09/29/18 00:09 Band Neuts % (Manual) 2 % (5-11) L 09/29/18 00:09 Sodium 137 mmol/L (136-145) 09/29/18 00:09 Potassium 4.7 mmol/L (3.5-5.1) 09/29/18 00:09 Chloride 102 mmol/L (98-107) 09/29/18 00:09 Carbon Dioxide 26 mmol/L (23-31) 09/29/18 00:09 BUN 14 mg/dL (9.8-20.1) 09/29/18 00:09 Creatinine 0.85 mg/dL (0.6-1.1) 09/29/18 00:09 Glucose 106 mg/dL (83-110) 09/29/18 00:09 Calcium 9.6 mg/dL (7.8-10.44) 09/29/18 00:09 Total Bilirubin 0.8 mg/dL (0.2-1.2) 09/29/18 00:09 AST 83 U/L (5-34) H 09/29/18 00:09 ALT 48 U/L (8-55) 09/29/18 00:09 Alkaline Phosphatase 79 U/L (40-150) 09/29/18 00:09 B-Natriuretic Peptide 836.0 pg/mL (0-100) H 09/29/18 00:09 Serum Total Protein 6.0 g/dL (6.0-8.3) 09/29/18 00:09 Albumin 3.7 g/dL (3.4-4.8) 09/29/18 00:09 - EKG Interpretation EKG: EKG: Atrial fib with PVC's, RAD, non specific ST and T wave abnormalities, QTc 430 - Radiology Interpretation Chest x-ray Status: image reviewed by me (cardiomegaly, decreased lung volume on left, pulmonary congestion on the right, AICD and leads present, right IJ CVC in place with tip near cavoatrial junction) FMR H&P: A/P - Problem List (1) Acute and chronic respiratory failure ([id number]) Current Visit: No Status: Acute Code(s): J96.20 - ACUTE AND CHR RESP FAILURE , UNSP W HYPOXIA OR HYPERCAPNIA Qualifiers: Respiratory failure complication: hypoxia and hypercapnia Qualified Code(s) : J96.21 - Acute and chronic respiratory failure with hypoxia; J96.22 - Acute and chronic respiratory failure with hypercapnia Comment: Extubated, CPAP nocturnally, Prednisone 20mg BID, Duonebs (2) COPD (chronic obstructive pulmonary disease) Current Visit: Yes Status: Acute (3) CHF (congestive heart failure) Current Visit: Yes Status: Acute Code(s): I50.9 - HEART FAILURE, UNSPECIFIED (4) Paroxysmal ventricular tachycardia Current Visit: No Status: Acute Code(s): I47.2 - VENTRICULAR TACHYCARDIA (5) Atrial fibrillation Current Visit: No Status: Chronic Code(s): I48.91 - UNSPECIFIED ATRIAL FIBRILLATION Qualifiers: Atrial fibrillation type: chronic Qualified Code(s): I48.2 - Chronic atrial fibrillation Comment: Rate controlled currently, resume Amiodarone - Plan Acute respiratory failure - likely 2/2 combination of COPD and CHF exacerbation Recent hospitalization resulting in intubation on August 24 Hx of COPD and CHF, satting in mid 80's on 2L home O2 when EMS arrived Decompensated respiratory status in the ED leading to intubation - ABG following showed mild respiratory alkalosis -Likely a combination of COPD and CHF exacerbation -Intubated and admitted to CCU -Scheduled duonebs q6hr -Started Levaquin 750 daily due to likely COPD exacerbation and recent hospitalization with intubation -Solumedrol 60mg q6hr -Single dose of IV Lasix 20mg -GI prophylaxis with famotidine -Held fluids due to pulmonary congestion on CXR and elevated BNP -Pulmonology consulted Congestive heart failure exacerbation Pulmonary congestion on CXR and elevated BNP Most recent echo EF 55-60% -Holding fluids -20mg IV lasix -Echo ordered Afib -Anticoagulation was held follow most recent admission due to fall risk -AICD placed -Currently rate controlled at this time -Cont home rx HTN -Recent hypotension following intubation so holding any antihypertensives Condition: Guarded VTE: Lovenox Fluids: None Dispo: Admit to CCU while pt is intubated with initial low pressures FMR H&P: Upper Level - Plan Date/Time: 09/29/18 [id number] I, [], have evaluated this patient and agree with findings/plan as outlined by art gallery internship resident. Pertinent changes/additions are listed here. Addendum - Attending - Attending Attestation Date/Time: 09/29/18 1235 I personally evaluated the patient and discussed the management with resident team I agree with the History, Examination, Assessment and Plan documented above with any addition or exceptions noted below. 78 yo female with end stage COPD and heart disease presents for evaluation of respiratory failure. Patient worsened, be came altered, and after lying flat for imaging progressively worsened and was intubated in the ER. History is limited. No family available. Medical record reviewed. Admit to ICU. Consult crit care. Will treat for COPD (breathing treatments, steriods, vent, antibx) and acute heart failure exacerbation (hold beta rigoberto at this time due to severity, MOISES lasix, strict fluid restriction). On review of previous echo noted patient likely has pHTN which continues to compound her conditions. Follow up closely. Cards as needed. Yumi
[2018-09-29 02:02] LABS: Actual Bicarbonate (HCO3a) 24.1 mEq/L (22-28); Analyzer IN Cardio ER; CO2 Tension 32.4 mmHg (35.0-45.0); Calcium, Ionized 1.11 mmol/L (1.12-1.30); Carboxyhemoglobin (COHb) 0.2 gm% (0.0-3.0); Hemoglobin (Hb) 9.5 g/dL (12.0-16.0); O2 Tension (PaO2) 159.2 mmHg (> 70.0); Potassium - ABG Lab 4.54 mmol/L (3.70-5.30); pH, Arterial 7.49 (7.35-7.45)
[2018-09-29 02:22] LABS: Puncture Site LBA
[2018-09-29] MEDS ORDERED: Ketamine 50 MG/ML (10ML VIAL) ONE (03:08)
[2018-09-29] MEDS ORDERED: Propofol BOLUS 1,000 MG/100 ML VIAL IV PRN ×2 (04:01→21:01)
[2018-09-29] MEDS ORDERED: Propofol 1,000 MG/100 ML VIAL IV PRN (04:01)
[2018-09-29] MEDS ORDERED: Fentanyl BOLUS 250 ML IVPB PRN (04:01)
[2018-09-29] MEDS ORDERED: DISCONTINUE PREVIOUS NARCOTIC PAIN MEDICATIONS AND BENZODIAZEPINES FS SCH (04:01)
[2018-09-29] MEDS ORDERED: Morphine 2 MG/ML SYRINGE SLOW IVP PRN (04:01)
[2018-09-29] MEDS ORDERED: Ondansetron PF 4 MG/2 ML Vial IVP PRN (04:05)
[2018-09-29] MEDS ORDERED: Ondansetron ODT 4 MG TAB SL PRN (04:05)
[2018-09-29] MEDS ORDERED: Lactated Ringer's 1,000 ML IV SCH (04:15)
[2018-09-29 04:46] LABS: Lactic Acid 1.1 mmol/L (0.5-2.2)
[2018-09-29 04:56] LABS: Troponin I Less than 0.010 ng/mL (< 0.028)
[2018-09-29] MEDS ORDERED: Acetaminophen 650 MG Suppository PR PRN (05:02)
[2018-09-29] MEDS ORDERED: Ventilator Sedation Protocol 1 EACH FS SCH (05:15)
[2018-09-29] MEDS ORDERED: Furosemide 20 MG/2 ML VIAL SLOW IVP SCH (06:00)
[2018-09-29] MEDS ORDERED: Enoxaparin Sodium 40 MG/0.4 ML SYRINGE SC SCH (06:00)
[2018-09-29] MEDS ORDERED: methylPREDNISolone Sod Succ/PF 125 MG/2 ML VIAL IVP SCH (06:00)
[2018-09-29 06:43] LABS: Actual Bicarbonate (HCO3a) 26.3 mEq/L (22-28); Base Excess (BEa) 2.1 mEq/L (-2.0 to +3.0); CO2 Tension 39.1 mmHg (35.0-45.0); Calcium, Ionized 1.11 mmol/L (1.12-1.30); Carboxyhemoglobin (COHb) 0.8 gm% (0.0-3.0); Hemoglobin (Hb) 9.3 g/dL (12.0-16.0); O2 Tension (PaO2) 134.5 mmHg (> 70.0); Potassium - ABG Lab 4.19 mmol/L (3.70-5.30); pH, Arterial 7.45 (7.35-7.45)
[2018-09-29 06:46] LABS: Puncture Site LBA
[2018-09-29 06:47] LABS: ALV-art Gradient 101.825 (0-20)
[2018-09-29 07:23] LABS: Troponin I Less than 0.010 ng/mL (< 0.028)
--- NOTE | 2018-09-29 08:00 | CT ---
PRELIMINARY REPORT/[facility]/EMERGENCY AFTER HOURS PROCEDURE: EXAM: CT Head Without Contrast EXAM DATE/TIME: 09/29/2018 12:58 AM CLINICAL HISTORY: 78 years old, female; Altered mental status/memory loss; Confusion or disorientation; Patient HX: PT has declined in responsiveness. PT was talking and responsive and is now lethargic and not answering questions. 78 y/o F presents to ED via EMS transport C/O decr leg mobility, with associated dyspnea. PT was discharged from [facility] this afternoon. She was placed in rehab following a fall. Additionally, PT describes that she has not been eating as she has not had an appetite. On EMS arrival to scene, pt's o2 sat decr on PT standing. PT is on 2l o2 at baseline TECHNIQUE: Imaging protocol: Computed tomography images of the head without contrast. COMPARISON: No relevant prior studies available. FINDINGS: Brain: No acute intracranial hemorrhage or mass effect. No definite acute infarct by CT. MRI could be more sensitive/specific for detection, as clinically di rected. Ventricles: Ventricle size is normal for age. Bones/joints: No definite acute skull fracture. Sinuses: Included paranasal sinuses are essentially clear. Mastoid air cells: No significant acute finding. Soft tissues: Evidence for soft tissue injury/scalp hematoma in the right frontal region. IMPRESSION: 1. No acute intracranial bleed or mass effect. 2. No definite acute infarct by CT, see above. 3. Other findings discussed above. Thank you for allowing us to participate in the care of your patient. Dictated and Authenticated by: Pee Sanford MD 09/29/2018 1:54 AM Central Time ([place] & [place]) FINAL REPORT EMERGENCY AFTER HOURS CT BRAIN WITHOUT CONTRAST: Date: 09/29/18 FINDINGS/IMPRESSION: I agree with the findings and impression given in the preliminary report per [facility] physician. No evide nce of acute intracranial abnormality.
--- NOTE | 2018-09-29 08:29 | CON ---
DATE OF CONSULTATION: HISTORY OF PRESENT ILLNESS: Niharika Snyder is a 78-year-old female, intubated on the vent in the ICU, came in last night with progressive respiratory failure. She has seen Dr. Blake in the past. In fact, she was here not long ago and was recently intubated after she sustained a fall. She has severe end-stage COPD. Following her discharge, I am told she was doing reasonably well, when she presented last night with shortness of breath. She has not been eating and no appetite. She is intubated for progressive respiratory failure. She presently is sedated on Diprivan at 150 mcg/hour. PAST MEDICAL HISTORY: Hematoma in the frontal head, which she still has; previous UTI, end-stage COPD, atrial fibrillation, anemia, sleep apnea, CHF, and encephalopathy. PAST SURGICAL HISTORY: Previous surgeries, she has an AICD in place. MEDICATIONS: Medicines from home to have included; 1. Hydralazine 25 b.i.d. 2. Buspirone 10. 3. Risedronate 35 mg. 4. Seroquel 25. 5. Singulair 10. 6. Lopressor 12.5. 7. Neb treatments. 8. Breo. 9. Pepcid. 10. Eyedrops. 11. Cymbalta 60. 12. She is presently on neb treatments, Lasix, and steroids. ALLERGIES: SHE HAS MULTIPLE ALLERGIES INCLUDING URMILA, HYDROCODONE, GABAPENTIN, AND SULFA. REVIEW OF SYSTEMS: Unobtainable. She is sedated. PHYSICAL EXAMINATION: VITAL SIGNS: Sats are 98%, blood pressure , respiratory rate 18. CHEST: Decreased breath sounds. No wheezing. CARDIAC: Normal S1 and S2. No gallops. ABDOMEN: No masses. NEUROLOGIC: She is sedated. LABORATORY DATA: White count 8000, H and H 10 and 34, platelet count is normal. Chemistry profile is normal. BUN and creatinine normal. BNP is elevated at 836. PO2 is 134, pCO2 . Chest x-ray shows endotracheal tube to be in place. Bilateral pleural effusion. Consider CHF. IMPRESSION: Respiratory failure, congestive heart failure, chronic obstructive pulmonary disease, encephalopathy, and recurrent respiratory failure. At this stage, input from Cardiology. Continue supportive care, PT. Agree with steroids, neb treatments, and antibiotics. We will follow. We will start nutrition in the next 24 to 48 hours. This is a 45-minute critical time. Job ID: [id number]
[2018-09-29] MEDS ORDERED: Famotidine/PF 20 mg/2ml Vial SLOW IVP SCH (09:00)
[2018-09-29] MEDS: Furosemide 40 MG/4 ML VIAL SLOW IVP SCH (09:07)
[2018-09-29] MEDS: methylPREDNISolone Sod Succ 40 MG VIAL IVP SCH ×2 (09:08→20:09)
--- NOTE | 2018-09-29 09:13 | RAD ---
CHEST 1 VIEW: INDICATION: Central line placement. COMPARISON: Prior exam dated 09/29/2018. FINDINGS: There is a new right internal jugular central venous catheter. Endotracheal tube and gastric cathete r are unchanged. Automatic implantable cardioverter/defibrillator is unchanged. Cardiomegaly persis ts. Pulmonary vascular congestion persists. Diffuse airspace opacity of the right lung persists. N o pneumothorax is evident. IMPRESSION: New right internal jugular central venous catheter. Otherwise, stable exam to the most recent compar liberty dated 1:21 a.m. POS: LORA
--- NOTE | 2018-09-29 09:22 | RAD ---
CHEST 1 VIEW: Date: 09/28/18 INDICATION: History of fall. COMPARISON: Prior exam dated 08/27/18. FINDINGS: There is cardiomegaly with pulmonary vascular congestion. There is left basilar air space opacity. Th ere is a tiny right and small left pleural effusion. There is pulmonary vascular congestion. There is an AICD overlying left chest wall. There is diffuse osteopenia. There is prominent osteoarthrosis of both shoulders. IMPRESSION: 1. Findings of mild CHF. 2. Left basilar opacity may reflect atelectasis or pneumonia. Recommend correlation. No pneumothorax is demonstrated. POS: BH
--- NOTE | 2018-09-29 09:24 | RAD ---
CHEST 1 VIEW: INDICATION: History of intubation. COMPARISON: Prior exam dated 09/28/2018. FINDINGS: The patient is intubated with associated gastric catheter placement. Gastric catheter projects below the left hemidiaphragm below the field of view. AICD is unchanged. There is worsening cardiomegaly , pulmonary vascular congestion and central edema pattern. There is hazy opacity filling the right l mingo as well as the left infrahilar region suspicious for edema or pneumonia. There are small bilater al pleural effusions. No pneumothorax is evident. IMPRESSION: 1. Findings of worsening congestive heart failure. 2. Interval intubation and gastric catheter placement. 3. Diffuse hazy opacity of the right lung is suspicious for edema. There is prominent infrahilar ai rspace opacity on the left that persists possibly related to atelectasis or pneumonia. POS: BH
[2018-09-29] MEDS: fentaNYL Citrate/PF 2,000 MCG in Sodium Chloride 0.9% 60 ML IV SCH ×2 (12:51→22:30)
[2018-09-29] MEDS: Atorvastatin Calcium 20 MG TAB PO SCH (20:07)
[2018-09-29] MEDS: Metoprolol Tartrate 25 MG TAB PO SCH (20:07)
[2018-09-29] MEDS: Famotidine 20 MG TAB PO SCH (20:09)
[2018-09-29] MEDS: Propofol 1,000 MG/100 ML VIAL IV PRN (21:06)
[2018-09-30 05:08] LABS: Band 10 % (5-11); Hemoglobin 8.7 g/dL (12.0-16.0); Lymphocytes 5 % (21-51); MDiff Complete? YES; Mean Corpuscular HGB CONC 30.8 g/dL (32.0-36.0); Mean Corpuscular Hemoglobin 27.1 pg (27.0-31.0); Mean Corpuscular Volume 87.9 fL (78.0-98.0); Mean Platelet Volume 9.2 fL (7.4-10.4); Monocytes 3 % (0-10); Neutrophil 82 % (42-75); Platelet Count 281 thou/uL (130-400); Platelet Morphology Comment Appears Adequate; Red Blood Cell (RBC) Count 3.23 mill/uL (4.20-5.40); White Blood Cell (WBC) Count 7.5 thou/uL (4.8-10.8)
[2018-09-30 05:14] LABS: ALT (SGPT) 76 U/L (8-55); AST (SGOT) 132 U/L (5-34); Albumin 3.1 g/dL (3.4-4.8); Alkaline Phosphatase 63 U/L (40-150); Anion Gap 14 mmol/L (10-20); BUN (Urea Nitrogen) 23 mg/dL (9.8-20.1); Bilirubin, Total 0.4 mg/dL (0.2-1.2); Calc. Creatinine Clearance 33 mL/min (70-130); Calcium 8.2 mg/dL (7.8-10.44); Carbon Dioxide 28 mmol/L (23-31); Chloride 103 mmol/L (98-107); Estimated GFR-MDRD 32; Globulin 1.9 g/dL (2.4-3.5); Glucose 120 mg/dL (83-110); Potassium 4.5 mmol/L (3.5-5.1); Sodium 140 mmol/L (136-145)
[2018-09-30] MEDS ORDERED: Furosemide 20 MG/2 ML VIAL SLOW IVP SCH (05:45)
[2018-09-30 06:52] LABS: Actual Bicarbonate (HCO3a) 28.7 mEq/L (22-28); Base Excess (BEa) 1.7 mEq/L (-2.0 to +3.0); CO2 Tension 57.9 mmHg (35.0-45.0); Calcium, Ionized 1.07 mmol/L (1.12-1.30); Carboxyhemoglobin (COHb) 0.3 gm% (0.0-3.0); Hemoglobin (Hb) 10.4 g/dL (12.0-16.0); O2 Tension (PaO2) 76.3 mmHg (> 70.0); Potassium - ABG Lab 4.61 mmol/L (3.70-5.30); pH, Arterial 7.31 (7.35-7.45)
[2018-09-30 07:00] LABS: ALV-art Gradient 100.875 (0-20); Puncture Site LRA
--- NOTE | 2018-09-30 08:11 | RAD ---
CHEST 1 VIEW: HISTORY: Respiratory distress. COMPARISON: Prior day's study. FINDINGS: Endotracheal and NG Tubes remain in satisfactory position. Pleural and parenchymal lung changes are stable. IMPRESSION: Stable exam. POS: C
[2018-09-30] MEDS: Furosemide 40 MG/4 ML VIAL SLOW IVP SCH (08:12)
[2018-09-30] MEDS: Propofol 1,000 MG/100 ML VIAL IV PRN (08:12)
[2018-09-30] MEDS: DULoxetine 60 MG CAP PO SCH (08:12)
[2018-09-30] MEDS: Famotidine 20 MG TAB PO SCH (08:12)
[2018-09-30] MEDS: methylPREDNISolone Sod Succ 40 MG VIAL IVP SCH ×2 (08:13→22:00)
[2018-09-30] MEDS: Metoprolol Tartrate 25 MG TAB PO SCH ×2 (08:16→21:59)
[2018-09-30] MEDS ORDERED: Enoxaparin Sodium 40 MG/0.4 ML SYRINGE SC SCH (09:00)
[2018-09-30] MEDS ORDERED: Bupropion 150 MG XL TAB PO SCH (09:00)
--- NOTE | 2018-09-30 09:07 | PRG ---
DATE OF SERVICE: 09/30/2018 SUBJECTIVE: This morning, she is on the vent, sedated with Diprivan, fentanyl and appears to be encephalopathic. OBJECTIVE: VITAL SIGNS: Saturation is 100%, pulse is 86, blood pressure is 99/ 46. Is and Os have been consistently minimally negative. GENERAL: Neurologically, difficult to assess, so she is shaking and trembling. CHEST: Bilateral rhonchi or crackles. CARDIAC: Normal S1 and S2. No gallops. ABDOMEN: No masses. LABORATORY DATA: PO2 is 76, pCO2 is 57, ph 7.43 35%. Creatinine is 1.57. Albumin is normal. White count is 7000, H and H are 8 and 28. IMAGING STUDIES: X-ray shows bilateral pleural effusion. IMPRESSION: Respiratory failure, congestive heart failure, chronic obstructive pulmonary disease, encephalopathy. PLAN: Daughter apparently called yesterday. We are in the process of trying to contact the daughter. At this stage, it did not appear she is weanable. We will continue Nutrition, PT, cardiac care. One-half hour of critical time. Job ID: [id number] [facility]
--- NOTE | 2018-09-30 10:29 | PDOC.FM ---
- Subjective Subjective: Agitate overnight, second sedative was added. Nurse reports low UO. No other events otherwise - Objective Vital Signs & Weight: Vital Signs (12 hours) Temp Pulse Pulse Pulse Resp BP BP 09/30/18 09:52 10 L 09/30/18 09:22 99 94 92/76 09/30/18 07:55 98.0 F 13 09/30/18 07:25 09/30/18 07:00 98.0 F 09/30/18 06:35 92 85/65 L 09/30/18 06:26 78 10 L 09/30/18 06:00 12 09/30/18 04:00 98.6 F 14 09/30/18 02:00 10 L 09/30/18 00:00 98.7 F 12 09/29/18 23:21 78 10 L BP Pulse Ox Pulse Ox Pulse Ox 09/30/18 09:52 09/30/18 09:22 89/47 L 93 L 97 09/30/18 07:55 09/30/18 07:25 100 09/30/18 07:00 09/30/18 06:35 09/30/18 06:26 09/30/18 06:00 09/30/18 04:00 09/30/18 02:00 09/30/18 00:00 09/29/18 23:21 100 Weight Admit Weight 69.3 kg Weight 69.8 kg Most Recent Monitor Data Heart Rate from ECG 83 NIBP 93/42 NIBP BP-Mean 59 Respiration from ECG 11 SpO2 100 I&O: 09/29/18 09/30/18 10/01/18 06:59 06:59 06:59 Intake Total 160 1007.4 100 Output Total 90 1057 65 Balance 70 -49.6 35 Result Diagrams: 09/30/18 03:46 09/30/18 03:46 Phys Exam - Physical Examination Constitutional: NAD intubated, sedated GCS9T Respiratory: no wheezing bibasilar crackles Cardiovascular: no significant murmur irregular rhythm abdominal hernias, hypoactive BS Musculoskeletal: no edema Dx/Plan (1) CHF (congestive heart failure) Code(s): I50.9 - HEART FAILURE, UNSPECIFIED Status: Acute (2) COPD (chronic obstructive pulmonary disease) Status: Acute (3) SHANNAN (acute kidney injury) Code(s): N17.9 - ACUTE KIDNEY FAILURE, UNSPECIFIED Status: Acute (4) Acute and chronic respiratory failure ([id number]) Code(s): J96.20 - ACUTE AND CHR RESP FAILURE, UNSP W HYPOXIA OR HYPERCAPNIA Status: Acute Qualifiers: Respiratory failure complication: hypoxia and hypercapnia Qualified Code(s) : J96.21 - Acute and chronic respiratory failure with hypoxia; J96.22 - Acute and chronic respiratory failure with hypercapnia (5) Encephalopathy acute Code(s): G93.40 - ENCEPHALOPATHY, UNSPECIFIED Status: Acute (6) UTI (urinary tract infection) Status: Acute (7) Atrial fibrillation Code(s): I48.91 - UNSPECIFIED ATRIAL FIBRILLATION Status: Chronic Qualifiers: Atrial fibrillation type: chronic Qualified Code(s): I48.2 - Chronic atrial fibrillation - Plan Plan: Acute hypoxic hypercapneic respiratory failure - likely 2/2 combination of COPD and CHF exacerbation -BNP elveated in 800s, history of diastolic heart failure & COPD on 2L O2 at home -Intubated on profol gtt and fentanyl, daily ABGs & CXRs -Continue lasix 40mg IV, watch BPs closely to avoid hypotension -TTE pending, consult cardiology, recs appreciated -COPD: duonebs MOISES, solumedrol, levaquin #Oliguria -5-10cc/hr likely from hypotension -From hypotension, however patient's fluid status cannot tolerate fluids -Continue closely monitoring #Hypotension -CHF and propofol contributing factors -MAPs 58-70s, closely monitor -No further fluids at this time due to fluid overload -If not maintaining MAPs, consider pressors #Congestive heart failure exacerbation -Pulmonary congestion on CXR and elevated BNP -Most recent echo EF 55-60% -TTE pending -Consulted cardiology, recs appreciated #SHANNAN on CKD -Cr uptrending -Likely from dec perfusion -Levaquin renal dosing, hold nephrotoxic meds -Continue trending #Anemia -Patient with known history, also could be dilutional from fluid overloaded state -Hb downtrending -order iron panel #COPD exacerbation -steroids, MOISES duonebs, lavaquin #Afib, paced -rate controlled -hold metorpolol due to hypotension -ASA #HTN -Recent hypotension following intubation so holding any antihypertensives Condition: Guarded VTE: Lovenox Fluids: KVO 1) Acute hypoxic hypercapneic resp failure-pulm managing ventilation settings. Continue treating for COPD exac. and CHF exac. Patient is in frail state where she is fluid overloaded but BPs cannot tolerate too aggressive of diuresing. Will have to closely monitor. Cardiology consulted, recs appreciated. 2) Prognosis is guarded adrian. with history requiring 7 intubations. Pt is full code currently. Will discuss with daughter about goals of care, consider palliative consult. Addendum - Attending - Attending Attestation Date/Time: 09/30/18 2334 I personally evaluated the patient and discussed the management with Dr. Anne. I agree with the History, Examination, Assessment and Plan documented above with any addition or exceptions noted below. Wean vent as jose. Start feeds. DVT/GI ppx. D/w cardiology.
[2018-09-30] MEDS ORDERED: acetaZOLAMIDE Sodium 500 mg Vial IVP SCH (10:45)
[2018-09-30] MEDS ORDERED: Sterile Water 10 ML VIAL FS SCH (10:45)
[2018-09-30 10:47] LABS: Bilirubin, Direct 0.2 mg/dL (0.1-0.3); Bilirubin, Total 0.4 mg/dL (0.2-1.2); Iron 16 ug/dL (50-170); Iron Binding Capacity, Total 248 mcg/dL (265-497)
--- NOTE | 2018-09-30 14:58 | CON ---
DATE OF CONSULTATION: 09/30/2018 INDICATION FOR CONSULTATION: A 78-year-old female with multiple medical problems with a long history of end-stage COPD. She has a history also of congestive heart failure. She has recent echocardiogram - showed ejection fraction of 55% to 60% with left atrial dilatation. She has chronic diastolic dysfunction. She also has moderate mitral and tricuspid valve regurgitation by recent echocardiogram. She was seen in the emergency room on 09/28/2018, required intubation and was admitted to the intensive care unit. She recently was in the hospital also with respiratory problems. She has also had some altered mental status changes. She has had some recent fall. She had significant hematomas and ecchymosis on the forehead and also the knee areas. At this time, she remains intubated. Most of the information is obtained from the past medical records and from the records available, there are no family members available at this time. Chest x-ray shows evidence of mild congestive heart failure, but no significant effusion. She does have small bilateral pleural effusions and cardiomegaly. The AICD is also in place. She underwent AICD placement in the past due to I believe ventricular tachycardia, ventricular fibrillation. At this time, from a cardiac standpoint she appears to be stable. The blood pressure is 102/54, heart rate is between 80 to 110 and it shows atrial fibrillation. She remains on the ventilator and O2 sats are 100%. PAST MEDICAL HISTORY: Significant for chronic atrial fibrillation, congestive heart failure, sleep apnea, hypercholesterolemia, mild coronary artery disease, history of ventricular tachycardia, ventricular fibrillation in 2014 for which she underwent AICD implant. She has fibromyalgia, gastroesophageal reflux disease, end-stage COPD. She has had bilateral knee surgeries. She has anxiety and depression. SOCIAL HISTORY: Not obtainable at this time. Please refer to the notes already dictated. She lives in the retirement. ALLERGIES: SHE IS ALLERGIC TO MULTIPLE MEDICATIONS INCLUDE URMILA INHIBITORS, GABAPENTIN, CODEINE, LYRICA, LORAZEPAM, SULFA, TRAMADOL, AND OXYCODONE. MEDICATIONS: Her present medications are in extensive list. This are the medications prior to admission, these included: 1. Amiodarone. 2. Amlodipine. 3. Benzonatate. 4. Breo Ellipta. 5. Brimonidine. 6. Bupropion. 7. Buspirone. 8. Caltrate plus vitamin D. 9. Dorzolamide ophthalmic drops. 10. Eliquis. 11. Famotidine. 12. Furosemide. 13. Hydralazine. 14. Ipratropium. 15. Albuterol. 16. Latanoprost ophthalmic drops. 17. Lidocaine patch. 18. Metoprolol. 19. Montelukast. 20. Risedronate. 21. Simvastatin. 22. Tylenol. 23. Ventolin inhaler or nebulizer. REVIEW OF SYSTEMS: Not obtainable at this time. The patient is on the ventilator. PHYSICAL EXAMINATION: GENERAL: Reveals an ill-appearing elderly female on the ventilator with large ecchymosis and hematoma on the right forehead and also evidence of previous older ecchymosis and hematomas. VITAL SIGNS: Blood pressure is 102/54, heart rates in the 80s to one-teens at this time. Respiratory rate on the ventilator is 13 to 20, and O2 saturation 100%. HEENT: Shows head to be atraumatic. Evidence of previous and recent hematomas in the forehead area. Carotid pulses are present. Did not hear any bruits. CHEST: Decreased breath sounds, but I did not hear any rales, rhonchi, or wheezing at this time anteriorly. CARDIOVASCULAR: Reveals an irregular rhythm. Heart sounds are somewhat distant. There are no significant murmurs noted at this time, but there is increased airway noise from the ventilator at times, but otherwise did not see any significant abnormalities. I did not hear any significant murmurs or bruits. There were no heaves or thrills. ABDOMEN: Slightly tympanic appeared to be slightly tender also, but I could not palpate any masses. The patient did have some wincing when I examined the abdomen. EXTREMITIES: Show no clubbing or cyanosis. She does have pedal pulses, but they are decreased and she has evidence of previous bilateral knee surgeries with some ecchymosis noted on the knee areas as her previous falls likely. NEUROLOGIC: The patient is sedated and intubated. SKIN: Warm and dry at this time. DIAGNOSTIC DATA: EKG shows atrial fibrillation and flutter. Chest x-ray shows evidence of congestive heart failure which is mild, cardiomegaly, and bilateral small pleural effusions. LABORATORY DATA: Shows a hemoglobin 8.7, hematocrit of 28.4, platelet count 281,000, white blood cell count 7.5. BUN 23, creatinine 1.57, potassium 4.5, sodium was 140, blood sugar was 120. Cardiac enzymes are negative. Her BNP was elevated at 836. IMPRESSION: 1. Acute on chronic respiratory failure with end-stage chronic obstructive pulmonary disease. The patient remains on the ventilator. I would suggest that some discussion be made for palliative care or hospice in this lady, who continues to have a repeat bouts of acute respiratory failure requiring intubation. 2. Congestive heart failure. This appears to be actually under reasonable control. Ejection fraction is 55% to 60%, but she does have a history of diastolic heart failure. I would continue present management and other medications as they are at present. Careful not to over diurese the patient as her BUN and creatinine are slightly elevated. This is more elevated than her previous admission with a creatinine of 1.57. 3. Atrial fibrillation or flutter. This is a chronic ongoing problem. We will continue and we would monitor for rate control. She had previously been on amiodarone as well as beta blockers, but if she remains in atrial fibrillation, most likely the amiodarone will not be beneficial to the patient. If she has not had any evidence of sinus rhythm, we could interrogate the pacemaker to determine whether or not she is chronic and is always in atrial fibrillation or not. She is on a beta-rigoberto to help control the heart rate at this time. This seems to be tolerating that. Given her overall status, the heart rate is actually under reasonable control for her 80 to 100s. Should this become more significant, we could start her on IV diltiazem if we need this for rate control. We will be more than happy to continue to follow the patient with you through her hospital course, but overall prognosis obviously is poor and is overall generally very ill patient. Job ID: [id number]
[2018-09-30] MEDS ORDERED: Iron, Sodium Ferric Gluconate 125 MG in Sodium Chloride 0.9% 100 ML IVPB SCH (17:00)
[2018-09-30] MEDS ORDERED: Docusate 100 MG CAP PO SCH (21:00)
[2018-09-30] MEDS: Docusate Sodium 100 MG/10 ML UDCUP PO SCH (21:53)
[2018-09-30] MEDS: Atorvastatin Calcium 20 MG TAB PO SCH (21:53)
[2018-10-01] MEDS: fentaNYL Citrate/PF 2,000 MCG in Sodium Chloride 0.9% 60 ML IV SCH (01:05)
[2018-10-01] MEDS: Propofol 1,000 MG/100 ML VIAL IV PRN ×2 (03:47→15:07)
[2018-10-01 05:08] LABS: Hemoglobin 8.8 g/dL (12.0-16.0); Mean Corpuscular HGB CONC 30.5 g/dL (32.0-36.0); Mean Corpuscular Hemoglobin 27.2 pg (27.0-31.0); Mean Corpuscular Volume 89.4 fL (78.0-98.0); Mean Platelet Volume 9.1 fL (7.4-10.4); Platelet Count 292 thou/uL (130-400); RBC Distribution Width 18.1 % (11.5-14.5); Red Blood Cell (RBC) Count 3.24 mill/uL (4.20-5.40); White Blood Cell (WBC) Count 12.7 thou/uL (4.8-10.8)
[2018-10-01 05:27] LABS: Band 6 % (5-11); Elliptocytes SLIGHT = 2-5 cells (100X) (0-1/hpf); Hypochromia SLIGHT = 6-15 cells (100X) (0-5/hpf); Lymphocytes 6 % (21-51); MDiff Complete? YES; Monocytes 7 % (0-10); Neutrophil 81 % (42-75); Platelet Morphology Comment Appears Adequate; Target Cells SLIGHT = 2-5 cells (100X) (0-1/hpf)
[2018-10-01 05:30] LABS: ALT (SGPT) 69 U/L (8-55); AST (SGOT) 89 U/L (5-34); Albumin 3.2 g/dL (3.4-4.8); Alkaline Phosphatase 59 U/L (40-150); Anion Gap 13 mmol/L (10-20); BUN (Urea Nitrogen) 40 mg/dL (9.8-20.1); Bilirubin, Total 0.3 mg/dL (0.2-1.2); Calc. Creatinine Clearance 21 mL/min (70-130); Calcium 7.7 mg/dL (7.8-10.44); Carbon Dioxide 25 mmol/L (23-31); Chloride 101 mmol/L (98-107); Estimated GFR-MDRD 19; Globulin 1.9 g/dL (2.4-3.5); Glucose 128 mg/dL (83-110); Potassium 4.6 mmol/L (3.5-5.1); Protein, Total 5.1 g/dL (6.0-8.3); Sodium 134 mmol/L (136-145)
--- NOTE | 2018-10-01 06:05 | PDOC.EVN ---
Event Note - Event Note Event Note: Call received at appx 00:10 regarding seizure like activity. Nurse reports eyes rolling in back of head and minimal response for three minutes after episode. Nurse increased diprovan at that time. Another episode was reported a few hours later. Activity described as generalized shaking. Patient's diprovan was increased by nurse at that time as well. On my evaluation, patient arousable with stimulation. Neurological exam difficult due to sedation. GCS 6. Patient will open eyes to pain and will withdrawal from pain. Advised that patient may need EEG and/or CT scan in the AM. However, I also think a discussion needs to be had with daughter in the AM regarding goals of care. Decision to proceed with additional imaging can be made based on this conversation. I did not witness any seizure like activity during my evaluation. Would be reasonable to add seizure medication if additional episodes occur. Day team physician notified of events. Danyelle Rosado, DO PGY-3
--- NOTE | 2018-10-01 06:05 | PDOC.FM ---
- Subjective Subjective: Pt had 2 seizures overnight reported as tonic clonic. Nursing reports her pressures were on the lower side but remained stable. - Objective MAR Reviewed: Yes Vital Signs & Weight: Vital Signs (12 hours) Temp Pulse Resp Pulse Ox 10/01/18 04:00 98.2 F 13 10/01/18 02:00 13 10/01/18 00:06 86 10 L 100 10/01/18 00:00 98.1 F 15 09/30/18 22:00 11 L 09/30/18 20:00 98 F 16 100 09/30/18 18:37 106 H 15 Weight Admit Weight 69.3 kg Weight 70.3 kg Most Recent Monitor Data Heart Rate from ECG 92 NIBP 93/51 NIBP BP-Mean 65 Respiration from ECG 24 SpO2 99 I&O: 09/29/18 09/30/18 10/01/18 06:59 06:59 06:59 Intake Total 160 1007.4 1150.6 Output Total 90 1057 636 Balance 70 -49.6 514.6 Result Diagrams: 10/01/18 04:30 10/01/18 04:30 Phys Exam - Physical Examination GCS: E2, V1T, M4 HEENT: PERRLA (narrow pubils but reactive), sclera anicteric Neck: no JVD Crackles to bases of lungs but good air movement with ventilations Cardiovascular: no significant murmur irregullarly irregular, normal rate Gastrointestinal: soft, non-tender, no distention, positive bowel sounds Musculoskeletal: no edema, pulses present Active tonic clonic seizures upon exam with wax/waning of seizures Deviation from normal: Intubated Skin: cap refill <2 seconds Dx/Plan (1) CHF (congestive heart failure) Code(s): I50.9 - HEART FAILURE, UNSPECIFIED Status: Acute (2) COPD (chronic obstructive pulmonary disease) Status: Acute (3) SHANNAN (acute kidney injury) Code(s): N17.9 - ACUTE KIDNEY FAILURE, UNSPECIFIED Status: Acute (4) Acute and chronic respiratory failure ([id number]) Code(s): J96.20 - ACUTE AND CHR RESP FAILURE, UNSP W HYPOXIA OR HYPERCAPNIA Status: Acute Qualifiers: Respiratory failure complication: hypoxia and hypercapnia Qualified Code(s) : J96.21 - Acute and chronic respiratory failure with hypoxia; J96.22 - Acute and chronic respiratory failure with hypercapnia (5) Encephalopathy acute Code(s): G93.40 - ENCEPHALOPATHY, UNSPECIFIED Status: Acute (6) UTI (urinary tract infection) Status: Acute (7) Atrial fibrillation Code(s): I48.91 - UNSPECIFIED ATRIAL FIBRILLATION Status: Chronic Qualifiers: Atrial fibrillation type: chronic Qualified Code(s): I48.2 - Chronic atrial fibrillation - Plan Plan: This is a 78 yo female with a pmh of COPD, HFpEF, and atrial fibrillation Acute hypoxic respiratory failure 2/2 COPD with HFpEF contributing -Currently intubated and sedated -Worsening ABGs despite being mechanically ventilated -Cautious diuresis as pt has a current SHANNAN -Cardiology and pulmonology consulted, will appreciate recommendations Oliguria -Continues to be consistently below 0.5ml/kg -Complicated by CHF and concern for fluid overload, SHANNAN, and hypotension. -Continuing close monitoring Hypotension -Likely 2/2 to HFpEF, propofol, and mechanical ventilation -Currently fluid overloaded, complicating situation -Continue monitoring and refer to cardiology and pulmonology for recommendations if worsening BPs Tonic-clonic seizure like activity overnight, difficult to assess due to sedation -Pending prolactin -Bolus with 1000mg Keppra then 500mg BID there after, due to renal function -No apparent source, pending mag, phosphorus, procal, CT head -Pt has lorazepam allergy of unknown significance, avoiding this med for now -Consider EEG on Wednesday HFrEF -TTE shows EF of 55-60% and elevated pulmonary pressure -Cardiology consulted, we will appreciate their recommendations SHANNAN on CKD 3 -Worsening due to decreased perfusion -Dosing medications based on this condition -Continue following -Pending Urine sodium and urea Anemia -Appears stable from yesterday, 8.8 -Likely iron deficiency COPD exacerbation -Steroids, MOISES duonebs, levaquin Afib, paced -Rate controlled -Holding metoprolol -ASA HTN -Currently struggling to maintain BPs Addendum - Attending - Attending Attestation Date/Time: 10/01/18 0832 I personally evaluated the patient and discussed the management with Dr. Aranda. I agree with the History, Examination, Assessment and Plan documented above with any addition or exceptions noted below. The patient suffered seizures overnight. She has an allergy of lorazepam. Pt was titrated up on propofol. Pt is hypotensive this morning but bp improves slightly with trendelenberg. SHANNAN is worsened and WBC are increased which could be a result of the seizure. CT results are pending. We have tried calling the patient's MPOA, daughter, but had to leave a message. Will continue trying to make contact. Condition: guarded
[2018-10-01] MEDS ORDERED: levETIRAcetam In NaCl (Iso-Os) 1,000 MG in Premix Bag 1 BAG IVPB SCH (07:15)
[2018-10-01 08:15] LABS: Bilirubin Negative (Negative); Blood, Urine Trace (Negative); Calcium Oxalate Crystals 1+ HPF (None Seen); Clarity Turbid (Clear); Glucose, Urine (Dipstick) Normal (Negative); Leukocyte 500 Leu/uL (Negative); Mucous/LPF Rare LPF (<2+); Nitrite Negative (Negative); Protein, Urine (Dipstick) 100 mg/dL (Neg-Trace); Squamous Epithelial 0-3 HPF (0-3); Transitional Epithelial 0-3 HPF (None Seen); Urobilinogen Normal mg/dL (Less than 2); WBC/HPF Greater than 50 HPF (0-3)
[2018-10-01 08:23] LABS: Bacteria/HPF 2+ HPF (None Seen)
--- NOTE | 2018-10-01 08:23 | RAD ---
CHEST 1 VIEW: Date: 10/01/18 INDICATION: CCU examination while on ventilator. COMPARISON: Prior exam dated 09/30/18. FINDINGS: The patient has ET tube, gastric catheter, and right subclavian central venous catheter. Multilead AI CD is unchanged. Cardiomegaly with pulmonary vascular congestion and perihilar edema is stable. Bilat eral pleural effusions persist. No pneumothorax is evident. IMPRESSION: Stable exam. POS: BH
[2018-10-01 08:24] LABS: Urine Culture Reflex Yes Yes
[2018-10-01 08:32] LABS: Sodium, Urine Less than 20 mmol/L (Not Available); Urea Nitrogen, Random Urine 223 mg/dl
--- NOTE | 2018-10-01 08:48 | CT ---
CT Brain WO Con: 10/01/2018 7:01 AM CLINICAL HISTORY: Fall with respiratory failure. IMAGING TECHNIQUE: Multiple CT images were obtained of the brain without IV contrast. COMPARISON: CT of the brain dated September 29, 2018 FINDINGS: Infarct: No acute infarct evident. Hemorrhage: None.. Hydrocephalus: None.. Basal cisterns: Normal.. Cerebral parenchyma: There is stable diffuse cerebral atrophy and mild chronic small vessel white mat ter ischemic change.. Midline shift: None.. Cerebellum: Normal. Brainstem: Normal. OTHER: Calvarium: Intact.. Visualized Paranasal sinuses: Clear.. Extracranial soft tissues:Right frontal scalp soft tissue lesion is stable measuring 2.2 cm. Right sc leral buckle is stable. The patient is intubated with gastric catheter placement. IMPRESSION: No acute intracranial abnormality.
[2018-10-01] MEDS ORDERED: buPROPion 75 MG TAB PER TUBE SCH (09:00)
--- NOTE | 2018-10-01 09:01 | PRG ---
DATE OF SERVICE: 10/01/2018 SUBJECTIVE: Niharika Snyder is a 78-year-old female. This morning, she is sedated on fentanyl and Diprivan. As she has seized last night, had to be started on Keppra. LABORATORY DATA: Creatinine is 2.48, which is slightly increased compared to yesterday. Otherwise, H and H are stable and white count 12,000. Cultures negative. OBJECTIVE: VITAL SIGNS: Blood pressure is 180/90, respiratory rate 10, afebrile, and saturations are 98%. HEENT: Pupils are equal. CHEST: Decreased breath sounds. No wheezing. CARDIAC: Normal S1 and S2. No gallops. ABDOMEN: No masses. EXTREMITIES: She does move all 4 extremities. IMPRESSION: 1. New onset seizures, etiology unclear. CT of the head being ordered. 2. Cardiomyopathy. 3. Renal failure. 4. Congestive heart failure versus chronic obstructive pulmonary disease. 5. Multiorgan failure. 6. Respiratory failure. PLAN: I will try and minimize some of her medication. Unfortunately, there are no family members to discuss the care. I agree with Gianfrancora right now. Await results of the CT head. At this stage, she is not weanable and echo was otherwise negative. Await input from the CT. Otherwise, continue supportive care, nutrition, and PT. TIME SPENT: One-half hour of critical care time. Job ID: [id number]
[2018-10-01] MEDS: DULoxetine 60 MG CAP PO SCH (10:16)
[2018-10-01] MEDS: Famotidine 20 MG TAB PO SCH (10:16)
[2018-10-01] MEDS: acetaZOLAMIDE Sodium 500 mg Vial IVP SCH (10:16)
[2018-10-01] MEDS: Docusate Sodium 100 MG/10 ML UDCUP PO SCH ×2 (10:16→21:07)
[2018-10-01] MEDS: Furosemide 40 MG/4 ML VIAL SLOW IVP SCH (10:16)
[2018-10-01] MEDS: Sterile Water 10 ML VIAL FS SCH (10:17)
[2018-10-01] MEDS: Enoxaparin Sodium 30 MG/0.3 ML SYRINGE SC SCH (10:17)
[2018-10-01] MEDS: Metoprolol Tartrate 25 MG TAB PO SCH ×2 (10:17→21:07)
[2018-10-01] MEDS: methylPREDNISolone Sod Succ 40 MG VIAL IVP SCH ×2 (10:17→21:08)
[2018-10-01 10:36] LABS: Phosphorus 4.1 mg/dL (2.3-4.7)
[2018-10-01 10:41] LABS: Magnesium 1.6 mg/dL (1.6-2.6)
[2018-10-01] MEDS: Metoclopramide HCl 10 MG/2 ML VIAL IVP SCH ×2 (13:35→21:07)
[2018-10-01] MEDS: Atorvastatin Calcium 20 MG TAB PO SCH (21:07)
[2018-10-02] MEDS: Fosphenytoin Sodium 100 MG in Sodium Chloride 0.9% 100 ML IVPB SCH ×3 (01:58→17:31)
[2018-10-02 04:35] LABS: Band 3 % (5-11); Hemoglobin 8.2 g/dL (12.0-16.0); Lymphocytes 4 % (21-51); MDiff Complete? YES; Mean Corpuscular HGB CONC 30.9 g/dL (32.0-36.0); Mean Corpuscular Hemoglobin 26.8 pg (27.0-31.0); Mean Corpuscular Volume 86.9 fL (78.0-98.0); Mean Platelet Volume 9.1 fL (7.4-10.4); Monocytes 5 % (0-10); Neutrophil 88 % (42-75); Platelet Count 234 thou/uL (130-400); Platelet Morphology Comment Appears Adequate; RBC Distribution Width 18.3 % (11.5-14.5); Red Blood Cell (RBC) Count 3.05 mill/uL (4.20-5.40); White Blood Cell (WBC) Count 9.6 thou/uL (4.8-10.8)
[2018-10-02 04:48] LABS: ALT (SGPT) 50 U/L (8-55); AST (SGOT) 51 U/L (5-34); Albumin 2.9 g/dL (3.4-4.8); Alkaline Phosphatase 48 U/L (40-150); Anion Gap 12 mmol/L (10-20); BUN (Urea Nitrogen) 47 mg/dL (9.8-20.1); Bilirubin, Total 0.3 mg/dL (0.2-1.2); Calc. Creatinine Clearance 24 mL/min (70-130); Calcium 7.2 mg/dL (7.8-10.44); Carbon Dioxide 29 mmol/L (23-31); Chloride 103 mmol/L (98-107); Estimated GFR-MDRD 21; Globulin 1.6 g/dL (2.4-3.5); Glucose 152 mg/dL (83-110); Potassium 3.6 mmol/L (3.5-5.1); Protein, Total 4.5 g/dL (6.0-8.3); Sodium 140 mmol/L (136-145)
[2018-10-02] MEDS: Metoclopramide HCl 10 MG/2 ML VIAL IVP SCH ×3 (05:30→21:16)
[2018-10-02] MEDS ORDERED: Fosphenytoin Sodium 100 MG in Sodium Chloride 0.9% 100 ML IVPB SCH (06:00)
--- NOTE | 2018-10-02 06:21 | PDOC.FM ---
- Subjective Subjective: NAEO. Nursing reports she had two seizure like activities that resolved spontaneously. No new contact from her daughter. - Objective MAR Reviewed: Yes Vital Signs & Weight: Vital Signs (12 hours) Temp Pulse Resp Pulse Ox 10/02/18 06:00 10 L 10/02/18 04:00 98.1 F 10 L 10/02/18 02:00 10 L 10/02/18 00:00 97.7 F 10 L 10/01/18 23:56 79 10/01/18 23:55 77 10 L 100 10/01/18 22:32 83 10/01/18 22:00 10 L 10/01/18 20:30 100 10/01/18 20:00 97.6 F 10 L 10/01/18 18:40 73 10/01/18 18:39 75 18 100 Weight Admit Weight 69.3 kg Weight 70.5 kg Most Recent Monitor Data Heart Rate from ECG 72 NIBP 98/48 NIBP BP-Mean 64 Respiration from ECG 25 SpO2 100 I&O: 09/30/18 10/01/18 10/02/18 06:59 06:59 06:59 Intake Total 1007.4 1150.6 1278 Output Total 3386 367 0657 Balance -49.6 502.6 -12 Result Diagrams: 10/02/18 04:00 10/02/18 03:30 Phys Exam - Physical Examination Constitutional: NAD Dry mucus membranes Neck: no JVD Respiratory: no wheezing Crackles at lung bases Cardiovascular: RRR, no significant murmur Gastrointestinal: soft, no distention, positive bowel sounds Musculoskeletal: no edema, pulses present Neurological: moves all 4 limbs Skin: cap refill <2 seconds Dx/Plan (1) CHF (congestive heart failure) Code(s): I50.9 - HEART FAILURE, UNSPECIFIED Status: Acute (2) COPD (chronic obstructive pulmonary disease) Status: Acute (3) SHANNAN (acute kidney injury) Code(s): N17.9 - ACUTE KIDNEY FAILURE, UNSPECIFIED Status: Acute (4) Acute and chronic respiratory failure ([id number]-gyonwsl) Code(s): J96.20 - ACUTE AND CHR RESP FAILURE, UNSP W HYPOXIA OR HYPERCAPNIA Status: Acute Qualifiers: Respiratory failure complication: hypoxia and hypercapnia Qualified Code(s) : J96.21 - Acute and chronic respiratory failure with hypoxia; J96.22 - Acute and chronic respiratory failure with hypercapnia (5) Encephalopathy acute Code(s): G93.40 - ENCEPHALOPATHY, UNSPECIFIED Status: Acute (6) UTI (urinary tract infection) Status: Acute (7) Atrial fibrillation Code(s): I48.91 - UNSPECIFIED ATRIAL FIBRILLATION Status: Chronic Qualifiers: Atrial fibrillation type: chronic Qualified Code(s): I48.2 - Chronic atrial fibrillation - Plan Plan: This is a 78 yo female with a pmh of COPD, HFpEF, and atrial fibrillation Acute hypoxic respiratory failure 2/2 COPD with HFpEF contributing -Currently intubated and sedated -Worsening ABGs despite being mechanically ventilated -Cautious diuresis as pt has a current SHANNAN -Cardiology and pulmonology consulted, will appreciate recommendations Oliguria -Continues to be consistently below 0.5ml/kg -Complicated by CHF and concern for fluid overload, SHANNAN, and hypotension. -Continuing close monitoring Hypotension -Likely 2/2 to HFpEF, propofol, and mechanical ventilation -Currently fluid overloaded, complicating situation -Continue monitoring and refer to cardiology and pulmonology for recommendations if worsening BPs Tonic-clonic seizure like activity overnight, difficult to assess due to sedation -Prolactin positive -Bolus with 1000mg Keppra then 500mg BID there after, due to renal function -On fosphenytoin -Neurology consulted -No apparent source, including electrolyte abnormalities -Pt has lorazepam allergy of unknown significance, avoiding this med for now -Consider EEG on Wednesday HFrEF -TTE shows EF of 55-60% and elevated pulmonary pressure -Cardiology consulted, we will appreciate their recommendations SHANNAN on CKD 3 -Slight improvement overnight -Dosing medications based on this condition -Continue following -FeUrea consistent with ATN Anemia -Appears stable from yesterday, 8.2 -Likely iron deficiency COPD exacerbation -Steroids, MOISES duonebs, levaquin Afib, paced -Rate controlled -Holding metoprolol -ASA HTN -BP stable overnight Addendum - Attending - Attending Attestation Date/Time: 10/02/18 1869 I personally evaluated the patient and discussed the management with Dr. Aranda. I agree with the History, Examination, Assessment and Plan documented above with any addition or exceptions noted below. The patient was loaded with keppra yesterday morning and then started on maintenance dosing. She continued to have seizures and fosfenytoin added yesterday evening along with the propofol. We have consulted neurology and this is pending this morning. Will continue both anti-seizure meds. Nursing held lasix this morning 2/2 hypotension but per report gave the beta-rigoberto to help with tachycardia. Appreciate specialist recs, continue to update family.
[2018-10-02] MEDS: Propofol 1,000 MG/100 ML VIAL IV PRN ×3 (06:27→23:21)
[2018-10-02 07:41] LABS: Actual Bicarbonate (HCO3a) 27.8 mEq/L (22-28); Base Excess (BEa) 1.1 mEq/L (-2.0 to +3.0); Calcium, Ionized 0.96 mmol/L (1.12-1.30); Carboxyhemoglobin (COHb) 0.8 gm% (0.0-3.0); Hemoglobin (Hb) 9.2 g/dL (12.0-16.0); Potassium - ABG Lab 3.63 mmol/L (3.70-5.30); pH, Arterial 7.31 (7.35-7.45)
--- NOTE | 2018-10-02 08:16 | PRG ---
DATE OF SERVICE: 10/02/2018 SUBJECTIVE: Niharika Snyder is a 78-year-old female, remains sedated on Diprivan. She apparently seized again last night twice. She is not getting Keppra. CT head was done, which shows atrophy. OBJECTIVE: VITAL SIGNS: I's and O's are consistently even. Her sats are 96%, blood pressure 103/54, pulse _88_, respiratory rate 18. CHEST: Bilateral crackles. CARDIAC: Normal S1, S2. No gallops. ABDOMEN: No masses. IMPRESSION: 1. Respiratory failure, congestive heart failure. X-ray looks relatively stable , pleural effusion. 2. Renal failure, seizure disorder, advanced age. She is not weanable until seizure activity has terminated. Family to decide about a code status. Continue supportive care. Continue Keppra. Medication adjusted for renal failure. Prognosis remains guarded. One-half hour of critical care time. Job ID: [id number] MTDD
[2018-10-02] MEDS: Furosemide 40 MG/4 ML VIAL SLOW IVP SCH (09:00)
[2018-10-02] MEDS: Famotidine 20 MG TAB PO SCH (09:25)
[2018-10-02] MEDS: Enoxaparin Sodium 30 MG/0.3 ML SYRINGE SC SCH (09:25)
[2018-10-02] MEDS: DULoxetine 60 MG CAP PO SCH (09:26)
[2018-10-02] MEDS: acetaZOLAMIDE Sodium 500 mg Vial IVP SCH (09:26)
[2018-10-02] MEDS: Docusate Sodium 100 MG/10 ML UDCUP PO SCH ×2 (09:26→21:16)
[2018-10-02] MEDS: Sterile Water 10 ML VIAL FS SCH (09:27)
[2018-10-02] MEDS: methylPREDNISolone Sod Succ 40 MG VIAL IVP SCH ×2 (09:29→21:16)
[2018-10-02] MEDS: Doxycycline 100 MG in Sodium Chloride 0.9% 100 ML IVPB SCH ×2 (09:29→21:16)
[2018-10-02] MEDS: Metoprolol Tartrate 25 MG TAB PO SCH ×2 (09:30→11:45)
[2018-10-02 09:36] LABS: O2 Tension (PaO2) 58.7 mmHg (> 70.0); Puncture Site LRA
--- NOTE | 2018-10-02 10:31 | RAD ---
CHEST 1 VIEW: Date: 10/02/18 INDICATION: CCU examination. COMPARISON: Prior exam dated 10/01/18. FINDINGS: ET tube, gastric catheter, right IJ central venous catheter, and AICD are unchanged. Cardiomegaly and pulmonary vascular congestion persist. Central edema pattern persists. Small bilateral pleural effus ions are similar appearing. No pneumothorax is evident. IMPRESSION: Stable exam. POS: BH
[2018-10-02] MEDS ORDERED: levETIRAcetam In NaCl (Iso-Os) 1,500 MG in Premix Bag 1 BAG IVPB SCH (12:00)
[2018-10-02 15:30] LABS: Legionella Urinary Ag Negative (Negative); Strep pneumo Urine Ag NEGATIVE (NEGATIVE)
--- NOTE | 2018-10-02 16:18 | CON ---
DATE OF CONSULTATION: 10/02/2018 CONSULTING PHYSICIAN: Hospitalist Service. IMPRESSION: New onset seizure. PLAN: 1. Keppra 1500 mg loading dose, followed by 500 mg twice a day. 2. Wean from propofol and ventilator as able. HISTORY OF PRESENT ILLNESS: Ms. Snyder is a 78-year-old woman with multiple medical problems including atrial fibrillation, CHF, apnea, COPD, fibromyalgia, GERD, who apparently presented with respiratory failure and a seizure. She had a CT scan of the brain in the emergency room, which was unremarkable. She was subsequently intubated and put on a propofol drip. She received 500 mg of Keppra last night. She has not had any witnessed seizure activity since then. PAST MEDICAL HISTORY: As listed above. ALLERGIES: MULTIPLE. FAMILY HISTORY: Not obtainable. REVIEW OF SYSTEMS: Not obtainable. MEDICATIONS: Medication list was reviewed. PHYSICAL EXAMINATION: GENERAL: She is a well-nourished elderly woman on ventilatory support. VITAL SIGNS: Blood pressure 82/44, pulse 106, respirations 30, saturations 92%. HEENT: Pupils are equal and reactive. Conjunctivae clear. She is orally intubated. NECK: Supple. EXTREMITIES: No cyanosis. NEUROLOGIC: She is deeply sedated. Her doll's head maneuver produces conjugate movement. There is no spontaneous eye opening. Tone appears to be symmetric. Plantar responses are mute. No abnormal movements are seen. SUMMARY: Elderly woman, who presented with apparent seizure and respiratory failure. I would agree with current care. Job ID: [id number]
[2018-10-02] MEDS: Atorvastatin Calcium 20 MG TAB PO SCH (21:17)
[2018-10-03] MEDS: Fosphenytoin Sodium 100 MG in Sodium Chloride 0.9% 100 ML IVPB SCH ×3 (02:24→17:28)
[2018-10-03 04:44] LABS: Hemoglobin 8.3 g/dL (12.0-16.0); Hypochromia SLIGHT = 6-15 cells (100X) (0-5/hpf); Lymphocytes 4 % (21-51); MDiff Complete? YES; Mean Corpuscular HGB CONC 31.1 g/dL (32.0-36.0); Mean Corpuscular Volume 86.9 fL (78.0-98.0); Mean Platelet Volume 9.2 fL (7.4-10.4); Monocytes 1 % (0-10); Neutrophil 95 % (42-75); Platelet Count 256 thou/uL (130-400); Platelet Morphology Comment Appears Adequate; RBC Distribution Width 18.3 % (11.5-14.5); Red Blood Cell (RBC) Count 3.06 mill/uL (4.20-5.40); White Blood Cell (WBC) Count 11.8 thou/uL (4.8-10.8)
[2018-10-03 04:51] LABS: ALT (SGPT) 35 U/L (8-55); AST (SGOT) 32 U/L (5-34); Albumin 2.8 g/dL (3.4-4.8); Alkaline Phosphatase 47 U/L (40-150); Anion Gap 11 mmol/L (10-20); BUN (Urea Nitrogen) 49 mg/dL (9.8-20.1); Bilirubin, Total 0.3 mg/dL (0.2-1.2); Calc. Creatinine Clearance 28 mL/min (70-130); Calcium 6.7 mg/dL (7.8-10.44); Carbon Dioxide 27 mmol/L (23-31); Chloride 105 mmol/L (98-107); Estimated GFR-MDRD 26; Globulin 1.6 g/dL (2.4-3.5); Glucose 154 mg/dL (83-110); Potassium 3.3 mmol/L (3.5-5.1); Protein, Total 4.4 g/dL (6.0-8.3); Sodium 140 mmol/L (136-145)
[2018-10-03] MEDS: Metoclopramide HCl 10 MG/2 ML VIAL IVP SCH ×3 (05:09→21:34)
--- NOTE | 2018-10-03 06:19 | PDOC.FM ---
- Subjective Subjective: pt seen sedated, non responsive to verbal/physical stimuli. one seizure-like event reported overnight. bolused with diprivan and resolved. - Objective Vital Signs & Weight: Vital Signs (12 hours) Temp Pulse Resp Pulse Ox 10/03/18 04:00 98.4 F 11 L 10/03/18 02:00 10 L 10/03/18 00:00 98.7 F 10 L 10/02/18 23:29 79 10 L 100 10/02/18 22:00 10 L 10/02/18 20:00 97.9 F 12 98 10/02/18 19:13 82 10 L Weight Admit Weight 69.3 kg Weight 69.5 kg Most Recent Monitor Data Heart Rate from ECG 76 NIBP 95/51 NIBP BP-Mean 65 Respiration from ECG 11 SpO2 100 I&O: 10/01/18 10/02/18 10/03/18 06:59 06:59 06:59 Intake Total 1150.6 1278 1513 Output Total 648 1290 841 Balance 502.6 -12 672 Result Diagrams: 10/03/18 04:05 10/03/18 04:05 Phys Exam - Physical Examination Constitutional: NAD HEENT: PERRLA, moist MMs Neck: no JVD signficant transmission of upper airway noises Cardiovascular: gallop Gastrointestinal: soft, no distention Musculoskeletal: pulses present, edema present Psychiatric: normal affect Skin: no rash Dx/Plan (1) CHF (congestive heart failure) Code(s): I50.9 - HEART FAILURE, UNSPECIFIED Status: Acute (2) COPD (chronic obstructive pulmonary disease) Status: Acute (3) SHANNAN (acute kidney injury) Code(s): N17.9 - ACUTE KIDNEY FAILURE, UNSPECIFIED Status: Acute (4) Acute and chronic respiratory failure ([id number]) Code(s): J96.20 - ACUTE AND CHR RESP FAILURE, UNSP W HYPOXIA OR HYPERCAPNIA Status: Acute Qualifiers: Respiratory failure complication: hypoxia and hypercapnia Qualified Code(s) : J96.21 - Acute and chronic respiratory failure with hypoxia; J96.22 - Acute and chronic respiratory failure with hypercapnia (5) UTI (urinary tract infection) Status: Acute (6) Atrial fibrillation Code(s): I48.91 - UNSPECIFIED ATRIAL FIBRILLATION Status: Chronic Qualifiers: Atrial fibrillation type: chronic Qualified Code(s): I48.2 - Chronic atrial fibrillation - Plan Plan: Acute on chronic hypoxic respiratory failure - 2/2 COPD w/ CHF contributing, consider PE as well. -Currently intubated and sedated -Worsening ABGs despite being mechanically ventilated -cautious diuresis with SHANNAN -Cardiology and pulmonology consulted, appreciate recommendations Oliguria -Continues to be consistently below 0.5ml/kg -Complicated by CHF and concern for fluid overload, SHANNAN, and hypotension. -Continuing close monitoring Hypotension -Likely 2/2 to HFpEF, propofol, and mechanical ventilation -consider adding dobutamine for pressure support if needed - MAPs mostly>65 Tonic-clonic seizure like activity -Prolactin positive -Bolus with 1000mg Keppra then 500mg BID there after, due to renal function -On fosphenytoin -Neurology consulted -No apparent source, including electrolyte abnormalities -Pt has lorazepam allergy of unknown significance, avoiding this med for now -Consider EEG HFrEF -TTE shows EF of 55-60% and elevated pulmonary pressure -Cardiology consulted, we will appreciate their recommendations SHANNAN on CKD 3 -Slight improvement overnight -Dosing medications based on this condition -Continue following -FeUrea consistent with ATN Anemia -stable, monitor -Likely iron deficiency COPD exacerbation -Steroids, MOISES duonebs, doxycycline Afib, paced -Rate controlled -Holding metoprolol -ASA HTN -BP stable overnight abx: doxy, fos ppx: famotidine dispo: attempt to wean vent, discuss goals of care. Addendum - Attending - Attending Attestation Date/Time: 10/03/18 7341 I personally evaluated the patient and discussed the management with Dr. Claire. I agree with the History, Examination, Assessment and Plan documented above with any addition or exceptions noted below. Patient here for acute respiratory failure 2/2 encephalopathy of unknown etiology. She is continuing to have seizure like events. Consider anoxic injury versus possible CVA due to her history and presentation. Pulm and Neuro on board , as well as cardiology. Diurese as tolerated to improve oxygenation. Consider repeat head imaging such as MRI once more stable. She is on broad spectrum abx. Renal function somewhat improved.
[2018-10-03 07:10] LABS: Actual Bicarbonate (HCO3a) 26.8 mEq/L (22-28); Base Excess (BEa) 1.5 mEq/L (-2.0 to +3.0); CO2 Tension 45.7 mmHg (35.0-45.0); Calcium, Ionized 0.97 mmol/L (1.12-1.30); Carboxyhemoglobin (COHb) 0.9 gm% (0.0-3.0); Hemoglobin (Hb) 8.9 g/dL (12.0-16.0); O2 Tension (PaO2) 136.6 mmHg (> 70.0); Potassium - ABG Lab 3.08 mmol/L (3.70-5.30)
[2018-10-03 07:47] LABS: ALV-art Gradient 55.825 (0-20); Puncture Site LRA; pH, Arterial 7.39 (7.35-7.45)
--- NOTE | 2018-10-03 07:47 | RAD ---
EXAM: Single view of the chest HISTORY: Respiratory failure COMPARISON: 10/02/2018 FINDINGS: Single view of the chest shows an enlarged but stable cardiomediastinal silhouette. The pa cemaker is unchanged in position. The lines and tubes are unchanged in position. There are small bilateral layering pleural effusion The bones are unremarkable. IMPRESSION: Stable exam
--- NOTE | 2018-10-03 08:39 | PRG ---
DATE OF SERVICE: 10/03/2018 SUBJECTIVE: She still had another episode of seizure activity last night. She remains intubated in the vent, sedated on propofol. OBJECTIVE: VITAL SIGNS: Pulse 82, blood pressure 104/52, remains afebrile and respirations 20. I's and O's even. CHEST: Decreased breath sounds. Bilateral crackles. CARDIAC: Normal S1, S2. No gallops. ABDOMEN: Soft. LABORATORY DATA: White count 83829, H and H 8 and 26, platelet count 256, BUN and creatinine are stable at 49 and 1.87. Albumin is low . Urine is growing E coli, which is sensitive to meropenem. Resistant to quinolones. A chest x-ray this morning shows stable bilateral pleural effusion findings. IMPRESSION: 1. Metabolic encephalopathy. 2. Seizure activity. 3. Congestive heart failure. 4. Renal failure. 5. Chronic obstructive pulmonary disease. 6. Urinary tract infection. PLAN: Until the seizure activity is stopped, we are not going to be weaning or extubating her. Continue otherwise empiric antibiotics, neb treatments and supportive care. She is on Keppra. Neb treatments and steroids. Prognosis remains guarded. This is day #4. One-half hour of critical time. Job ID: [id number]
[2018-10-03] MEDS: Furosemide 20 MG/2 ML VIAL SLOW IVP SCH (09:43)
[2018-10-03] MEDS: Docusate Sodium 100 MG/10 ML UDCUP PO SCH ×2 (09:43→20:25)
[2018-10-03] MEDS: Enoxaparin Sodium 30 MG/0.3 ML SYRINGE SC SCH (09:44)
[2018-10-03] MEDS: DULoxetine 60 MG CAP PO SCH (09:44)
[2018-10-03] MEDS: Famotidine 20 MG TAB PO SCH (09:45)
[2018-10-03] MEDS: Metoprolol Tartrate 25 MG TAB PO SCH ×2 (09:45→20:25)
[2018-10-03] MEDS: methylPREDNISolone Sod Succ 40 MG VIAL IVP SCH (09:53)
[2018-10-03] MEDS: Meropenem 500 MG in Sodium Chloride 0.9% 100 ML IVPB SCH ×2 (09:59→17:13)
[2018-10-03] MEDS ORDERED: Potassium Chloride 40 MEQ in Premix Bag 1 BAG IVPB SCH (10:15)
[2018-10-03] MEDS: Atorvastatin Calcium 20 MG TAB PO SCH (20:25)
[2018-10-04] MEDS: Meropenem 500 MG in Sodium Chloride 0.9% 100 ML IVPB SCH ×3 (00:31→17:16)
[2018-10-04] MEDS: Propofol 1,000 MG/100 ML VIAL IV PRN (00:33)
[2018-10-04] MEDS: Fosphenytoin Sodium 100 MG in Sodium Chloride 0.9% 100 ML IVPB SCH ×3 (02:10→17:16)
[2018-10-04 05:11] LABS: ALT (SGPT) 34 U/L (8-55); AST (SGOT) 35 U/L (5-34); Albumin 2.9 g/dL (3.4-4.8); Alkaline Phosphatase 68 U/L (40-150); Anion Gap 9 mmol/L (10-20); BUN (Urea Nitrogen) 53 mg/dL (9.8-20.1); Band 1 % (5-11); Bilirubin, Total 0.3 mg/dL (0.2-1.2); Calc. Creatinine Clearance 38 mL/min (70-130); Calcium 7.6 mg/dL (7.8-10.44); Carbon Dioxide 29 mmol/L (23-31); Chloride 110 mmol/L (98-107); Estimated GFR-MDRD 37; Globulin 1.8 g/dL (2.4-3.5); Glucose 94 mg/dL (83-110); Hemoglobin 8.9 g/dL (12.0-16.0); Lymphocytes 10 % (21-51); MDiff Complete? YES; Mean Corpuscular HGB CONC 30.2 g/dL (32.0-36.0); Mean Corpuscular Hemoglobin 26.6 pg (27.0-31.0); Mean Corpuscular Volume 88.2 fL (78.0-98.0); Mean Platelet Volume 9.2 fL (7.4-10.4); Metamyelocyte 2 % (0-0); Monocytes 6 % (0-10); Myelocyte 1 % (0-0); Neutrophil 80 % (42-75); Platelet Count 283 thou/uL (130-400); Platelet Morphology Comment Appears Adequate; Potassium 3.2 mmol/L (3.5-5.1); Protein, Total 4.7 g/dL (6.0-8.3); RBC Distribution Width 18.5 % (11.5-14.5); Red Blood Cell (RBC) Count 3.35 mill/uL (4.20-5.40); Sodium 145 mmol/L (136-145)
[2018-10-04] MEDS: Metoclopramide HCl 10 MG/2 ML VIAL IVP SCH ×3 (05:14→21:37)
--- NOTE | 2018-10-04 06:38 | PDOC.FM ---
- Subjective Subjective: pt resting comfortably in bed, not on sedation. alert to voice, follows commands. denies pain. bothered by ET tube - Objective Vital Signs & Weight: Vital Signs (12 hours) Temp Pulse Resp Pulse Ox 10/04/18 06:00 13 10/04/18 04:00 98.4 F 16 10/04/18 02:00 14 10/04/18 00:00 98.3 F 10 L 10/03/18 23:53 96 16 100 10/03/18 22:00 10 L 10/03/18 20:00 99.2 F 20 100 10/03/18 19:31 101 H 14 98 Weight Admit Weight 69.3 kg Weight 69.5 kg Most Recent Monitor Data Heart Rate from ECG 93 NIBP 124/70 NIBP BP-Mean 88 Respiration from ECG 22 SpO2 100 I&O: 10/02/18 10/03/18 10/04/18 06:59 06:59 06:59 Intake Total 1278 2097 1889 Output Total 1076 382 4788 Balance -12 1211 377 Result Diagrams: 10/04/18 04:00 10/04/18 04:00 Phys Exam - Physical Examination Constitutional: NAD HEENT: moist MMs transmitted breath sounds, increased secretions reported Cardiovascular: no significant murmur Gastrointestinal: no distention Musculoskeletal: pulses present edema improved Neurological: moves all 4 limbs follows commands Psychiatric: normal affect Skin: no rash Dx/Plan (1) CHF (congestive heart failure) Code(s): I50.9 - HEART FAILURE, UNSPECIFIED Status: Acute (2) COPD (chronic obstructive pulmonary disease) Status: Acute (3) SHANNAN (acute kidney injury) Code(s): N17.9 - ACUTE KIDNEY FAILURE, UNSPECIFIED Status: Acute (4) Acute and chronic respiratory failure ([id number]) Code(s): J96.20 - ACUTE AND CHR RESP FAILURE, UNSP W HYPOXIA OR HYPERCAPNIA Status: Acute Qualifiers: Respiratory failure complication: hypoxia and hypercapnia Qualified Code(s) : J96.21 - Acute and chronic respiratory failure with hypoxia; J96.22 - Acute and chronic respiratory failure with hypercapnia (5) UTI (urinary tract infection) Status: Acute (6) Atrial fibrillation Code(s): I48.91 - UNSPECIFIED ATRIAL FIBRILLATION Status: Chronic Qualifiers: Atrial fibrillation type: chronic Qualified Code(s): I48.2 - Chronic atrial fibrillation - Plan Plan: Acute on chronic hypoxic respiratory failure - 2/2 COPD w/ CHF contributing, consider PE as well. -Currently intubated and sedated -cautious diuresis, lasix 20 IV qd -Cardiology and pulmonology consulted, appreciate recommendations - Meropenem began empirically 10/03 Oliguria -Continues to be consistently below 0.9ml/kg -Complicated by CHF and concern for fluid overload, SHANNAN, and hypotension. -Continuing close monitoring Hypotension -Likely 2/2 to HFpEF, propofol, and mechanical ventilation -consider adding dobutamine for pressure support if needed - MAPs >65 overnight Tonic-clonic seizure like activity -Prolactin positive - Keppra 500mg BID, due to renal function, fosphenytoin -Neurology consulted -No apparent source, including electrolyte abnormalities -Pt has lorazepam allergy of unknown significance, avoiding this med for now -Consider EEG/MRI if continues to not be able to wean HFrEF -TTE shows EF of 55-60% and elevated pulmonary pressure -Cardiology consulted, we will appreciate their recommendations SHANNAN on CKD 3 -improved -Dosing medications based on this condition -Continue following -FeUrea consistent with ATN Anemia -stable, monitor -Likely iron deficiency COPD exacerbation -Steroids, MOISES duonebs Afib, paced -Rate controlled -Holding metoprolol -ASA HTN -BP stable overnight abx: Merem ppx: famotidine dispo: mild improvement today, attempt to wean vent Addendum - Attending - Attending Attestation Date/Time: 10/04/18 1048 I personally evaluated the patient and discussed the management with Dr. Claire. I agree with the History, Examination, Assessment and Plan documented above with any addition or exceptions noted below. Patient somewhat better today, will respond somewhat to voice though she continues to be intubated. No seizure activity overnight, continue AEDs for now. Suspect possible CVA as cause but will not be able to further pursue until off ventilator. Continue shu for UTI. Cardiology on board, UOP adequate. Renal function continues to improve day to day.
[2018-10-04 07:13] LABS: Actual Bicarbonate (HCO3a) 26.5 mEq/L (22-28); Base Excess (BEa) 1.4 mEq/L (-2.0 to +3.0); CO2 Tension 44.2 mmHg (35.0-45.0); Calcium, Ionized 1.05 mmol/L (1.12-1.30); Carboxyhemoglobin (COHb) 0.8 gm% (0.0-3.0); Hemoglobin (Hb) 8.8 g/dL (12.0-16.0); O2 Tension (PaO2) 100.6 mmHg (> 70.0); Potassium - ABG Lab 3.08 mmol/L (3.70-5.30)
[2018-10-04 07:17] LABS: Puncture Site LRA
--- NOTE | 2018-10-04 08:17 | CON ---
DATE OF CONSULTATION: HISTORY OF PRESENT ILLNESS: This morning, is off all sedation. PHYSICAL EXAMINATION: VITAL SIGNS: Pulse 92, blood pressure is 120/70, respiratory rate 18, saturations are 100%. I's and O's over the last 24 hours are 2797 in and 886 out. CHEST: Decreased breath sounds. No wheezing. CARDIAC: Normal S1, S2. No gallops. ABDOMEN: No masses. IMAGING DATA: X-ray still shows bilateral pleural effusion. LABORATORY DATA: White count 15,000, H and H of 8 and 29, platelet count is normal. PO2 is 100, pCO2 43 ph 7.43 on 30%_ FiO2. Creatinine 1.39. ASSESSMENT: 1. Respiratory failure. 2. Congestive heart failure. 3. Urinary tract infection. 4. Encephalopathy. 5. Seizure disorders. 6. Azotemia. PLAN: At this stage, continue supportive care. Daughter is from [place]. She is still a full code. She is on meropenem, Keppra, Dilantin, steroids, and cardiac medications. This is one-half hour of critical care time. We will follow. Job ID: [id number] [facility]
--- NOTE | 2018-10-04 08:37 | RAD ---
CHEST ONE VIEW: INDICATIONS: Ventilator dependent. COMPARISON: Prior exam dated 10/03/2018. IMPRESSION: Left-sided pleural parenchymal opacity persists. Right bilateral pleural effusions are similar appea ring. Pulmonary vascular congestion is stable. A right IJ central venous catheter, ET tube, and gas tric catheter are unchanged. AICD is unchanged. No pneumothorax is evident. POS: [facility]
[2018-10-04] MEDS ORDERED: Potassium Chloride 40 MEQ in Premix Bag 1 BAG IVPB SCH (09:30)
[2018-10-04] MEDS: Furosemide 20 MG/2 ML VIAL SLOW IVP SCH ×2 (10:09→15:09)
[2018-10-04] MEDS: DULoxetine 60 MG CAP PO SCH (10:10)
[2018-10-04] MEDS: Metoprolol Tartrate 25 MG TAB PO SCH ×2 (10:10→21:36)
[2018-10-04] MEDS: Famotidine 20 MG TAB PO SCH (10:10)
[2018-10-04] MEDS: Docusate Sodium 100 MG/10 ML UDCUP PO SCH ×2 (10:11→21:36)
[2018-10-04] MEDS: Enoxaparin Sodium 30 MG/0.3 ML SYRINGE SC SCH (10:11)
[2018-10-04] MEDS: methylPREDNISolone Sod Succ 40 MG VIAL IVP SCH (10:11)
[2018-10-04] MEDS: Atorvastatin Calcium 20 MG TAB PO SCH (21:36)
[2018-10-05] MEDS: Meropenem 500 MG in Sodium Chloride 0.9% 100 ML IVPB SCH ×3 (01:19→16:36)
[2018-10-05] MEDS: Fosphenytoin Sodium 100 MG in Sodium Chloride 0.9% 100 ML IVPB SCH ×3 (01:20→17:34)
[2018-10-05 04:54] LABS: ALT (SGPT) 35 U/L (8-55); AST (SGOT) 41 U/L (5-34); Albumin 2.9 g/dL (3.4-4.8); Alkaline Phosphatase 70 U/L (40-150); Anion Gap 11 mmol/L (10-20); BUN (Urea Nitrogen) 47 mg/dL (9.8-20.1); Bilirubin, Total 0.4 mg/dL (0.2-1.2); Calc. Creatinine Clearance 54 mL/min (70-130); Calcium 8.2 mg/dL (7.8-10.44); Carbon Dioxide 30 mmol/L (23-31); Chloride 108 mmol/L (98-107); Estimated GFR-MDRD 56; Globulin 1.8 g/dL (2.4-3.5); Glucose 96 mg/dL (83-110); Protein, Total 4.7 g/dL (6.0-8.3); Sodium 146 mmol/L (136-145)
[2018-10-05 05:20] LABS: Hemoglobin 9.2 g/dL (12.0-16.0); Hypochromia SLIGHT = 6-15 cells (100X) (0-5/hpf); Lymphocytes 10 % (21-51); MDiff Complete? YES; Mean Corpuscular HGB CONC 31.2 g/dL (32.0-36.0); Mean Corpuscular Hemoglobin 27.2 pg (27.0-31.0); Mean Corpuscular Volume 87.4 fL (78.0-98.0); Mean Platelet Volume 9.2 fL (7.4-10.4); Monocytes 4 % (0-10); Neutrophil 86 % (42-75); Platelet Count 261 thou/uL (130-400); Platelet Morphology Comment Appears Adequate; RBC Distribution Width 18.7 % (11.5-14.5); Red Blood Cell (RBC) Count 3.36 mill/uL (4.20-5.40); White Blood Cell (WBC) Count 16.3 thou/uL (4.8-10.8)
[2018-10-05] MEDS: Metoclopramide HCl 10 MG/2 ML VIAL IVP SCH ×3 (05:40→21:06)
[2018-10-05] MEDS: Furosemide 20 MG/2 ML VIAL SLOW IVP SCH ×2 (06:12→13:42)
--- NOTE | 2018-10-05 06:45 | PDOC.FM ---
- Subjective Subjective: pt resting comfortably in bed, off sedation, not in distress. no reported events overnight - Objective Vital Signs & Weight: Vital Signs (12 hours) Temp Pulse Resp Pulse Ox 10/05/18 06:00 14 10/05/18 04:00 98.6 F 12 10/05/18 02:00 15 10/05/18 00:00 98.6 F 12 10/04/18 23:18 89 14 100 10/04/18 22:00 13 10/04/18 20:00 98.2 F 14 100 10/04/18 18:57 101 H 22 H 100 Weight Admit Weight 69.3 kg Weight 66.5 kg Most Recent Monitor Data Heart Rate from ECG 90 NIBP 147/75 NIBP BP-Mean 99 Respiration from ECG 15 SpO2 100 I&O: 10/03/18 10/04/18 10/05/18 06:59 06:59 06:59 Intake Total 2090 1889 2340 Output Total 886 1512 5077 Balance 1219 961 -0687 Result Diagrams: 10/05/18 04:00 10/05/18 04:00 Phys Exam - Physical Examination Constitutional: NAD HEENT: moist MMs Neck: no nodes improving ronchi Cardiovascular: no significant murmur Gastrointestinal: soft, no distention Musculoskeletal: no edema, pulses present Neurological: moves all 4 limbs Psychiatric: normal affect Skin: no rash Dx/Plan (1) CHF (congestive heart failure) Code(s): I50.9 - HEART FAILURE, UNSPECIFIED Status: Acute (2) COPD (chronic obstructive pulmonary disease) Status: Acute (3) SHANNAN (acute kidney injury) Code(s): N17.9 - ACUTE KIDNEY FAILURE, UNSPECIFIED Status: Acute (4) Acute and chronic respiratory failure ([id number]) Code(s): J96.20 - ACUTE AND CHR RESP FAILURE, UNSP W HYPOXIA OR HYPERCAPNIA Status: Acute Qualifiers: Respiratory failure complication: hypoxia and hypercapnia Qualified Code(s) : J96.21 - Acute and chronic respiratory failure with hypoxia; J96.22 - Acute and chronic respiratory failure with hypercapnia (5) UTI (urinary tract infection) Status: Acute (6) Atrial fibrillation Code(s): I48.91 - UNSPECIFIED ATRIAL FIBRILLATION Status: Chronic Qualifiers: Atrial fibrillation type: chronic Qualified Code(s): I48.2 - Chronic atrial fibrillation - Plan Plan: Acute on chronic hypoxic respiratory failure - 2/2 COPD w/ CHF contributing, consider PE as well. -Currently intubated, attempt to wean to bipap today -cautious diuresis, lasix 20 IV qd, consider holding tomorrow -Cardiology and pulmonology consulted, appreciate recommendations possible e. feacalis UTI - Meropenem began 10/03 - CFUs low, monitor leukocytosis - likely 2/2 steroid, monitor - afebrile, procal neg, cxr wnl Hypokalemia - likely 2/2 lasix - monitor and replete as needed Tonic-clonic seizure like activity - Keppra 500mg BID, fosphenytoin. can increase if needed with improved renal fxn -Neurology consulted -No apparent source, including electrolyte abnormalities -Pt has lorazepam allergy of unknown significance, avoiding this med for now -Consider EEG/MRI, determine pacemaker compatibility Oliguria, improved -significantly improved over the last 24 hrs -Complicated by CHF and concern for fluid overload, SHANNAN, and hypotension. -Continuing close monitoring Hypotension, resolved - continue to monitor, add HTN rx if needed HFpEF -TTE shows EF of 55-60% and elevated pulmonary pressure -Cardiology consulted, we will appreciate their recommendations SHANNAN on CKD 3, resolved -Continue following -FeUrea consistent with ATN Anemia -stable, monitor -Likely iron deficiency Afib, paced -Rate controlled -Holding metoprolol -ASA abx: Merem ppx: famotidine dispo: attempt to wean vent Addendum - Attending - Attending Attestation Date/Time: 10/05/18 1105 I personally evaluated the patient and discussed the management with Dr. Claire. I agree with the History, Examination, Assessment and Plan documented above with any addition or exceptions noted below. Patient extubated successfully this morning and currently doing well. Denies complaints though reports being hungry and thirsty. No further seizure activity. She has some electrolyte abnormalities associated with tube feeds and lasix which I expect will improve once she is able to tolerate PO diet. Her urine output has improved and renal function improving. Cardiology and Pulm still on board, continue diuresis but I expect we will back off of that soon. No focal neuro deficits and will continue to monitor for further seizure activity and discuss EEG or MRI if that occurs.
[2018-10-05 07:06] LABS: Actual Bicarbonate (HCO3a) 27.5 mEq/L (22-28); CO2 Tension 41.8 mmHg (35.0-45.0); Calcium, Ionized 1.12 mmol/L (1.12-1.30); Carboxyhemoglobin (COHb) 1.2 gm% (0.0-3.0); Hemoglobin (Hb) 9.8 g/dL (12.0-16.0); O2 Tension (PaO2) 98.1 mmHg (> 70.0); Potassium - ABG Lab 2.94 mmol/L (3.70-5.30); pH, Arterial 7.44 (7.35-7.45)
[2018-10-05 07:26] LABS: Puncture Site RB
[2018-10-05] MEDS ORDERED: Potassium Chloride 40 MEQ in Premix Bag 1 BAG IVPB SCH (07:30)
[2018-10-05] MEDS: Docusate Sodium 100 MG/10 ML UDCUP PO SCH ×2 (08:04→21:07)
[2018-10-05] MEDS ORDERED: DC Sedation Protocol FS ONE (08:06)
--- NOTE | 2018-10-05 08:27 | PRG ---
DATE OF SERVICE: 10/05/2018 SUBJECTIVE: This morning, she is a little bit more responsive off sedation and negative inspiratory pressure was 24 yesterday. OBJECTIVE: VITAL SIGNS: Pulse 105, blood pressure is 140/80, respirations 20, and saturations 95%. I's and O's have been negative. CHEST: Decreased breath sounds. No wheezing. CARDIAC: Normal S1 and S2. No gallops. ABDOMEN: No masses. LABORATORY DATA: White count 15,000, H and H 9 and 27, and platelet count is normal. A pO2 is 98, pCO2 41, pH 7.44 at a rate of 8, 28%. Lytes are normal. BUN is 47. X-ray still shows bilateral pleural effusion. IMPRESSION: 1. Multiorgan failure. 2. Respiratory failure. 3. Seizure activity. 4. Severe deconditioning. 5. Urinary tract infection. PLAN: We are going to extubate today. She may need noninvasive ventilation versus high-flow postop. The family has made her still a full code. Nutrition, PT, and supportive care. One-half hour of critical care time. Job ID: [id number]
[2018-10-05] MEDS: Famotidine 20 MG TAB PO SCH (08:41)
[2018-10-05] MEDS: Metoprolol Tartrate 25 MG TAB PO SCH ×2 (08:41→21:06)
[2018-10-05] MEDS: Enoxaparin Sodium 30 MG/0.3 ML SYRINGE SC SCH (08:42)
[2018-10-05] MEDS: methylPREDNISolone Sod Succ 40 MG VIAL IVP SCH (08:42)
[2018-10-05] MEDS: DULoxetine 60 MG CAP PO SCH (08:52)
[2018-10-05] MEDS ORDERED: Potassium Chloride 20 MEQ in Premix Bag 1 BAG IVPB SCH (09:00)
--- NOTE | 2018-10-05 09:33 | RAD ---
PORTABLE CHEST: Date: 10/05/18 HISTORY: Respiratory distress. COMPARISON: Prior day's study. FINDINGS: Endotracheal and NG tubes remain in satisfactory position. Right-sided central line is unchanged. Ple ural and parenchymal lung changes are stable. IMPRESSION: Stable chest. POS: [facility]
[2018-10-05 14:35] LABS: Anion Gap 12 mmol/L (10-20); BUN (Urea Nitrogen) 37 mg/dL (9.8-20.1); Calc. Creatinine Clearance 58 mL/min (70-130); Calcium 8.4 mg/dL (7.8-10.44); Carbon Dioxide 28 mmol/L (23-31); Chloride 108 mmol/L (98-107); Estimated GFR-MDRD 64; Glucose 173 mg/dL (83-110); Potassium 4.4 mmol/L (3.5-5.1); Sodium 144 mmol/L (136-145)
[2018-10-05] MEDS: Atorvastatin Calcium 20 MG TAB PO SCH (21:06)
[2018-10-06] MEDS: Meropenem 500 MG in Sodium Chloride 0.9% 100 ML IVPB SCH (01:33)
[2018-10-06] MEDS: Fosphenytoin Sodium 100 MG in Sodium Chloride 0.9% 100 ML IVPB SCH ×2 (02:57→11:01)
[2018-10-06 04:19] LABS: Hemoglobin 9.7 g/dL (12.0-16.0); Lymphocytes 4 % (21-51); MDiff Complete? YES; Mean Corpuscular HGB CONC 30.6 g/dL (32.0-36.0); Mean Corpuscular Hemoglobin 26.9 pg (27.0-31.0); Mean Corpuscular Volume 87.9 fL (78.0-98.0); Monocytes 10 % (0-10); Neutrophil 86 % (42-75); Platelet Count 263 thou/uL (130-400); Platelet Morphology Comment Appears Adequate; RBC Distribution Width 18.5 % (11.5-14.5); Red Blood Cell (RBC) Count 3.61 mill/uL (4.20-5.40); White Blood Cell (WBC) Count 15.5 thou/uL (4.8-10.8)
[2018-10-06 04:20] LABS: ALT (SGPT) 61 U/L (8-55); AST (SGOT) 99 U/L (5-34); Albumin 3.1 g/dL (3.4-4.8); Alkaline Phosphatase 59 U/L (40-150); Anion Gap 7 mmol/L (10-20); BUN (Urea Nitrogen) 29 mg/dL (9.8-20.1); Bilirubin, Total 0.4 mg/dL (0.2-1.2); Calc. Creatinine Clearance 70 mL/min (70-130); Calcium 8.6 mg/dL (7.8-10.44); Carbon Dioxide 34 mmol/L (23-31); Chloride 107 mmol/L (98-107); Estimated GFR-MDRD 79; Globulin 1.9 g/dL (2.4-3.5); Glucose 87 mg/dL (83-110); Potassium 3.4 mmol/L (3.5-5.1); Sodium 145 mmol/L (136-145)
[2018-10-06] MEDS: Acetaminophen 650 MG/20.3 ML UDCUP PO PRN ×3 (04:21→21:03)
[2018-10-06] MEDS: Furosemide 20 MG/2 ML VIAL SLOW IVP SCH (05:07)
[2018-10-06] MEDS: Metoclopramide HCl 10 MG/2 ML VIAL IVP SCH (05:07)
--- NOTE | 2018-10-06 06:34 | PDOC.FM ---
- Subjective Subjective: pt resting comfortably in bed, denies pain. no seizure activity overnight. staff reports frequent call button activity and poor sleep - Objective Vital Signs & Weight: Vital Signs (12 hours) Temp Pulse Resp Pulse Ox 10/06/18 03:00 97.8 F 10/05/18 23:07 80 24 H 100 10/05/18 23:00 97.6 F 10/05/18 20:00 100 10/05/18 19:07 81 24 H 100 10/05/18 19:00 97.9 F Weight Admit Weight 69.3 kg Weight 65.6 kg Most Recent Monitor Data Heart Rate from ECG 76 NIBP 137/72 NIBP BP-Mean 93 Respiration from ECG 27 SpO2 100 I&O: 10/04/18 10/05/18 10/06/18 06:59 06:59 06:59 Intake Total 1889 2340 1484 Output Total 1512 5077 5620 Balance 880 -9272 -5367 Result Diagrams: 10/06/18 03:30 10/06/18 03:30 Phys Exam - Physical Examination Constitutional: NAD HEENT: moist MMs Neck: no JVD Respiratory: clear to auscultation bilateral Cardiovascular: no significant murmur Gastrointestinal: no distention Musculoskeletal: no edema, pulses present Neurological: moves all 4 limbs Deviation from normal: somnolent Skin: no rash Dx/Plan (1) CHF (congestive heart failure) Code(s): I50.9 - HEART FAILURE, UNSPECIFIED Status: Acute (2) COPD (chronic obstructive pulmonary disease) Status: Acute (3) SHANNAN (acute kidney injury) Code(s): N17.9 - ACUTE KIDNEY FAILURE, UNSPECIFIED Status: Acute (4) Acute and chronic respiratory failure ([id number]) Code(s): J96.20 - ACUTE AND CHR RESP FAILURE, UNSP W HYPOXIA OR HYPERCAPNIA Status: Acute Qualifiers: Respiratory failure complication: hypoxia and hypercapnia Qualified Code(s) : J96.21 - Acute and chronic respiratory failure with hypoxia; J96.22 - Acute and chronic respiratory failure with hypercapnia (5) UTI (urinary tract infection) Status: Acute (6) Atrial fibrillation Code(s): I48.91 - UNSPECIFIED ATRIAL FIBRILLATION Status: Chronic Qualifiers: Atrial fibrillation type: chronic Qualified Code(s): I48.2 - Chronic atrial fibrillation - Plan Plan: Acute on chronic hypoxic respiratory failure - 2/2 COPD w/ CHF contributing -1-2 L NC overnight -cautious diuresis, lasix 20 IV bid, consider transitioning to home dose today -Cardiology and pulmonology consulted, appreciate recommendations possible e. feacalis UTI - Meropenem began 10/03 - CFUs low, monitor - transition to oral abx leukocytosis - likely 2/2 steroid, monitor - afebrile, procal neg, cxr wnl Hypokalemia - likely 2/2 lasix - monitor and replete as needed Tonic-clonic seizure like activity - Keppra 500mg BID, fosphenytoin. can increase if needed with improved renal fxn -Neurology consulted -No apparent source, including electrolyte abnormalities -Pt has lorazepam allergy of unknown significance, avoiding this med for now -Consider EEG Oliguria, improved -significantly improved over the last 24 hrs -Complicated by CHF and concern for fluid overload, SHANNAN, and hypotension. -Continuing close monitoring Hypotension, resolved - continue to monitor, add HTN rx if needed HFpEF -TTE shows EF of 55-60% and elevated pulmonary pressure -Cardiology consulted, we will appreciate their recommendations SHANNAN on CKD 3, resolved -Continue following -FeUrea consistent with ATN Anemia -stable, monitor -Likely iron deficiency Afib, paced -Rate controlled -Holding metoprolol -ASA abx: Merem ppx: famotidine dispo: transfer to stroke with continued respiratory stability Addendum - Attending - Attending Attestation Date/Time: 10/06/18 1038 I personally evaluated the patient and discussed the management with Dr. Claire. I agree with the History, Examination, Assessment and Plan documented above with any addition or exceptions noted below. Patient doing improved this morning. Able to answer questions appropriately. Respiratory status improved. UOP improved and renal dysfunction improved. Awaiting [employer] to eval and consider changing all meds to PO. Rehab screen. Obtaining EEG today to further evaluate seizure activity.
[2018-10-06] MEDS: Potassium Chloride 20 MEQ TAB PO SCH (07:46)
--- NOTE | 2018-10-06 08:06 | PRG ---
DATE OF SERVICE: 10/06/2018 SUBJECTIVE: This morning is awake, alert, responsive, is extubated yesterday. Apparently swallowing some ice chips, but clearly seems severely deconditioned. OBJECTIVE: VITAL SIGNS: Saturations 100% on 2 L, temperature 98 blood pressure 140/67, pulse _84. CHEST: Decreased breath sounds. No wheezing. CARDIAC: Normal S1, S2. No gallops. ABDOMEN: No masses. LABORATORY DATA: Lytes are normal. White count 66251. ASSESSMENT: 1. Urinary tract infection __gram negative. 2. Respiratory failure. 3. Congestive heart failure. 4. Pneumonia. 5. Severe deconditioning. 6. Seizure disorder. Continue PT, increase diet as possible. Family discussed ongoing care with primary care physician. Job ID: [id number] [facility]TD[facility]
[2018-10-06] MEDS: Famotidine 20 MG TAB PO SCH (08:36)
[2018-10-06] MEDS: DULoxetine 60 MG CAP PO SCH (08:36)
[2018-10-06] MEDS: Metoprolol Tartrate 25 MG TAB PO SCH ×2 (08:36→20:55)
[2018-10-06] MEDS: Furosemide 40 MG TAB PO SCH (08:37)
[2018-10-06] MEDS: Enoxaparin Sodium 40 MG/0.4 ML SYRINGE SC SCH (08:37)
[2018-10-06] MEDS: Docusate Sodium 100 MG/10 ML UDCUP PO SCH ×2 (08:37→20:54)
[2018-10-06] MEDS ORDERED: RISEDRONATE SODIUM 35 MG PO SCH (09:00)
[2018-10-06] MEDS: AMOXicillin 250 MG CAP PO SCH ×3 (10:58→20:54)
--- NOTE | 2018-10-06 13:48 | PDOC.PALCO ---
Palliative Care Consult - Consult Details Requesting Physician: Dr Peguero Reason for Consult: goals of care, advance directives assistance Family Members Present: Daughter Abi and patients brother - Pertinent HPI Ms Snyder is a 78 year old female who was recently discharged and returned to the emergency room with shortness of breath and weakness. During evaluation in the emergency room patient had an altered mental status, with subsequent respiratory failure requiring intubation and sedation. Patient is noted to have an increase in frequency of hospital admissions requiring intubation. Ms Snyder was successfully extubated, and remains in IMCU. Palliative Care Team was consulted to assist with advance directives, goals of care, and family support. - Pertinent PMH A Fib, CHF, Anemia, Anxiety, Major Depression, HTN, COPD, GERD, - Social History Smoking Status: Unknown if ever smoked Smoking: no tobacco exposure Alcohol Use: none Drug Use History: none Living Situation: other - Medications MAR Reviewed: Yes - Allergies Allergies/Adverse Reactions: Allergies Allergy/AdvReac Type Severity Reaction Status Date / Time URMILA Inhibitors Allergy Severe Swollen Verified 08/27/18 18:05 Lips codeine Allergy Verified 08/27/18 18:05 gabapentin Allergy Verified 08/27/18 18:05 hydrocodone Allergy Verified 08/27/18 18:05 lorazepam [From Ativan] Allergy Verified 08/27/18 18:05 oxycodone Allergy Verified 08/27/18 18:05 pregabalin [From Lyrica] Allergy Verified 08/27/18 18:05 Sulfa (Sulfonamide Allergy Verified 08/27/18 18:05 Antibiotics) tramadol Allergy Verified 08/27/18 18:05 - Subjective Ms Snyder is awake, alert, and oriented. Chronically ill appearing with accessory muscle use for respirations. Bains cath with light yellow urine. Famiy at bedside this morning, Dr Claire present. Returned now to visit with patient. She denies shortness of breath, and all other review of symptoms are negative as per patient. - Objective Vital Signs: Vital Signs - Most Recent Temp Pulse Resp BP Pulse Ox 98.8 F 85 24 H 182/79 H 93 L 10/06/18 12:00 10/06/18 12:28 10/06/18 12:28 10/05/18 09:46 10/06/18 12:28 Palliative Performance Scale: 30 - Physical Exam Deviation from normal: Chronically ill appearing, labored respirations, generalized weakness. HEENT: moist MMs, EOMI Deviation from normal: Labored respirations, weak wet cough. Cardiovascular: irregular Gastrointestinal: non-tender Psychiatric: normal affect Deviation from normal: Hematoma to right forehead, brusing. Thins fragile skin - Problem List (1) Palliative care encounter Code(s): Z51.5 - ENCOUNTER FOR PALLIATIVE CARE Current Visit: Yes Status: Acute (2) Physical deconditioning Code(s): R53.81 - OTHER MALAISE Current Visit: Yes Status: Acute (3) CHF (congestive heart failure) Code(s): I50.9 - HEART FAILURE, UNSPECIFIED Current Visit: Yes Status: Acute Qualifiers: Heart failure chronicity: chronic (4) COPD (chronic obstructive pulmonary disease) Current Visit: Yes Status: Acute - Plan/Recommendations Plan: Visited this morning with family and patient, returned secondary to patient having test this morning. Upon return visit only patient was present. Ms Snyder confirmed the following: *SHe would return to a assisted secondary to need to continuos care *Will go to local placement, then plans to move to [facility] to be near her daughter. *Will return this afternoon to further discuss DNAR and OOHDNAR with Ms Snyder and her daughter. Blade Antony RN confirmed family meeting with Charity dawn daughter. [60] minutes spent on this encounter with >50% of the time in counseling and coordination of care. Thank you for this very appropriate consult.
[2018-10-06] MEDS: Atorvastatin Calcium 20 MG TAB PO SCH (20:54)
[2018-10-06] MEDS: levETIRAcetam 500 MG TAB PO SCH (20:54)
[2018-10-07 06:12] LABS: Eosinophils 1 % (0-10); Hemoglobin 10.1 g/dL (12.0-16.0); Lymphocytes 18 % (21-51); MDiff Complete? YES; Mean Corpuscular HGB CONC 31.2 g/dL (32.0-36.0); Mean Corpuscular Volume 86.6 fL (78.0-98.0); Mean Platelet Volume 9.9 fL (7.4-10.4); Monocytes 7 % (0-10); Neutrophil 74 % (42-75); Platelet Count 261 thou/uL (130-400); RBC Distribution Width 18.4 % (11.5-14.5); Red Blood Cell (RBC) Count 3.76 mill/uL (4.20-5.40); White Blood Cell (WBC) Count 13.7 thou/uL (4.8-10.8)
[2018-10-07 06:15] LABS: ALT (SGPT) 64 U/L (8-55); AST (SGOT) 86 U/L (5-34); Albumin 3.2 g/dL (3.4-4.8); Alkaline Phosphatase 66 U/L (40-150); Anion Gap 10 mmol/L (10-20); BUN (Urea Nitrogen) 19 mg/dL (9.8-20.1); Bilirubin, Total 0.4 mg/dL (0.2-1.2); Calc. Creatinine Clearance 74 mL/min (70-130); Calcium 8.6 mg/dL (7.8-10.44); Carbon Dioxide 33 mmol/L (23-31); Chloride 102 mmol/L (98-107); Estimated GFR-MDRD 89; Globulin 1.9 g/dL (2.4-3.5); Glucose 92 mg/dL (83-110); Potassium 3.2 mmol/L (3.5-5.1); Protein, Total 5.1 g/dL (6.0-8.3); Sodium 142 mmol/L (136-145)
--- NOTE | 2018-10-07 06:57 | PDOC.FM ---
- Subjective Subjective: pt resting comfortably in bed, denies pain. no events overnight - Objective Vital Signs & Weight: Vital Signs (12 hours) Temp Pulse Resp Pulse Ox 10/07/18 04:00 98.4 F 10/07/18 00:35 97 10/07/18 00:00 98.1 F 10/06/18 19:12 95 10/06/18 19:11 83 20 95 10/06/18 19:10 97 10/06/18 19:00 98.2 F Weight Admit Weight 69.3 kg Weight 64.093 kg Most Recent Monitor Data Heart Rate from ECG 86 NIBP 138/83 NIBP BP-Mean 101 Respiration from ECG 26 SpO2 90 I&O: 10/05/18 10/06/18 10/07/18 06:59 06:59 06:59 Intake Total 2340 1484 1905 Output Total 5077 5620 2590 [facility]2737 -4136 -685 Result Diagrams: 10/07/18 05:05 10/07/18 05:05 Phys Exam - Physical Examination Constitutional: NAD HEENT: moist MMs Neck: no JVD Respiratory: no wheezing, clear to auscultation bilateral Cardiovascular: no significant murmur Gastrointestinal: no distention Musculoskeletal: no edema, pulses present Neurological: moves all 4 limbs Lymphatic: no nodes Psychiatric: normal affect Skin: no rash Dx/Plan (1) CHF (congestive heart failure) Code(s): I50.9 - HEART FAILURE, UNSPECIFIED Status: Acute Qualifiers: Heart failure chronicity: chronic (2) COPD (chronic obstructive pulmonary disease) Status: Acute (3) SHANNAN (acute kidney injury) Code(s): N17.9 - ACUTE KIDNEY FAILURE, UNSPECIFIED Status: Acute (4) Acute and chronic respiratory failure ([id number]) Code(s): J96.20 - ACUTE AND CHR RESP FAILURE, UNSP W HYPOXIA OR HYPERCAPNIA Status: Acute Qualifiers: Respiratory failure complication: hypoxia and hypercapnia Qualified Code(s) : J96.21 - Acute and chronic respiratory failure with hypoxia; J96.22 - Acute and chronic respiratory failure with hypercapnia (5) UTI (urinary tract infection) Status: Acute (6) Atrial fibrillation Code(s): I48.91 - UNSPECIFIED ATRIAL FIBRILLATION Status: Chronic Qualifiers: Atrial fibrillation type: chronic Qualified Code(s): I48.2 - Chronic atrial fibrillation - Plan Plan: Tonic-clonic seizure like activity - Keppra 500mg BID, fosphenytoin. can increase if needed with improved renal fxn -Neurology consulted -No apparent source, including electrolyte abnormalities -Pt has lorazepam allergy of unknown significance, avoiding this med for now -EEG read pending Acute on chronic hypoxic respiratory failure, resolved - 2/2 COPD w/ CHF contributing - satting well on RA - home lasix dose -Cardiology and pulmonology consulted, appreciate recommendations possible e. feacalis UTI - amoxicillin leukocytosis - likely 2/2 steroid, monitor - afebrile, procal neg, cxr wnl Hypokalemia - likely 2/2 lasix - monitor and replete as needed Oliguria, resolved -Complicated by CHF and concern for fluid overload, SHANNAN, and hypotension. -Continuing monitoring Hypotension, resolved - continue to monitor, add HTN rx if needed HFpEF -TTE shows EF of 55-60% and elevated pulmonary pressure -Cardiology consulted, we will appreciate their recommendations SHANNAN on CKD 3, resolved -Continue following -FeUrea consistent with ATN Anemia -stable, monitor -Likely iron deficiency Afib, paced -Rate controlled -Holding metoprolol -ASA Code: full dispo: transfer to stroke with continued respiratory stability Addendum - Attending - Attending Attestation Date/Time: 10/07/18 1029 I personally evaluated the patient and discussed the management with Dr. Claire. I agree with the History, Examination, Assessment and Plan documented above with any addition or exceptions noted below. Patient overall stable. Continues to do well off supplemental O2. Likely able to transfer out of CCU in near future. We are working on placement for her. EEG results pending. Renal function continues to improve and now at her age related normal state. Await further Pulm recs. Nearing stability for discharge in the coming days.
--- NOTE | 2018-10-07 08:20 | PRG ---
DATE OF SERVICE: 10/07/2018 SUBJECTIVE: This morning, she is a little bit more awake, responsive. She is very weak. OBJECTIVE: VITAL SIGNS: Saturations are 93% on room air, pulse 85, respiratory rate 25, blood pressure . CHEST: Decreased breath sounds. No wheezing. CARDIAC: Normal S1 and S2. No gallops. ABDOMEN: No masses. NEUROLOGIC: She is awake. Moves all 4 extremities. LABORATORY DATA: White count 13,000. Lytes are normal, except potassium of 3.2. ASSESSMENT: Respiratory failure, congestive heart failure, urinary tract infection, severe deconditioning. PLAN: Family to discuss once again ongoing code status. She had an EEG done yesterday, awaiting results. She is on antiseizure medication, diuretics, p.o. antibiotics for recurrent UTI, neb treatments, supportive care. We will follow. Job ID: [id number]
[2018-10-07] MEDS: levETIRAcetam 500 MG TAB PO SCH ×2 (08:37→20:20)
[2018-10-07] MEDS: hydrALAZINE 25 MG TAB PO SCH ×2 (08:37→20:19)
[2018-10-07] MEDS: Potassium Chloride 20 MEQ TAB PO SCH (08:37)
[2018-10-07] MEDS: Metoprolol Tartrate 25 MG TAB PO SCH ×2 (08:38→20:20)
[2018-10-07] MEDS: Enoxaparin Sodium 40 MG/0.4 ML SYRINGE SC SCH (08:38)
[2018-10-07] MEDS: Famotidine 20 MG TAB PO SCH (08:38)
[2018-10-07] MEDS: AMOXicillin 250 MG CAP PO SCH ×3 (08:38→20:18)
[2018-10-07] MEDS: predniSONE 20 MG TAB PO SCH (08:38)
[2018-10-07] MEDS: DULoxetine 60 MG CAP PO SCH (08:38)
[2018-10-07] MEDS: Docusate Sodium 100 MG/10 ML UDCUP PO SCH ×2 (08:39→20:18)
[2018-10-07] MEDS: Furosemide 40 MG TAB PO SCH (08:39)
[2018-10-07] MEDS: Atorvastatin Calcium 20 MG TAB PO SCH (20:19)
[2018-10-08 05:11] LABS: Anion Gap 11 mmol/L (10-20); BUN (Urea Nitrogen) 17 mg/dL (9.8-20.1); Calc. Creatinine Clearance 73 mL/min (70-130); Calcium 8.3 mg/dL (7.8-10.44); Carbon Dioxide 32 mmol/L (23-31); Chloride 100 mmol/L (98-107); Estimated GFR-MDRD 87; Glucose 87 mg/dL (83-110); Potassium 3.4 mmol/L (3.5-5.1); Sodium 140 mmol/L (136-145)
[2018-10-08] MEDS: Potassium Chloride 20 MEQ TAB PO SCH (09:04)
[2018-10-08] MEDS: AMOXicillin 250 MG CAP PO SCH ×3 (09:05→21:00)
[2018-10-08] MEDS: Docusate Sodium 100 MG/10 ML UDCUP PO SCH ×3 (09:05→21:05)
[2018-10-08] MEDS: predniSONE 20 MG TAB PO SCH (09:05)
[2018-10-08] MEDS: Famotidine 20 MG TAB PO SCH ×2 (09:06→21:01)
[2018-10-08] MEDS: DULoxetine 60 MG CAP PO SCH (09:06)
[2018-10-08] MEDS: Furosemide 40 MG TAB PO SCH (09:06)
[2018-10-08] MEDS: hydrALAZINE 25 MG TAB PO SCH ×2 (09:06→20:56)
[2018-10-08] MEDS: Enoxaparin Sodium 40 MG/0.4 ML SYRINGE SC SCH (09:06)
[2018-10-08] MEDS: levETIRAcetam 500 MG TAB PO SCH ×2 (09:07→20:55)
[2018-10-08] MEDS: Metoprolol Tartrate 25 MG TAB PO SCH ×2 (09:07→20:55)
--- NOTE | 2018-10-08 10:18 | PRG ---
DATE OF SERVICE: 10/08/2018 SUBJECTIVE: Ms. Snyder is sitting up. She is feeling well, not having any chest pain. OBJECTIVE: VITAL SIGNS: Blood pressure 123/63 and pulse 90. LUNGS: Clear. CARDIAC: Normal S1, S2. ABDOMEN: Soft and nontender. EXTREMITIES: Warm and dry. ASSESSMENT: 1. Congestive heart failure, appears to be euvolemic, diastolic, acute on chronic. 2. History of defibrillators, stable. 3. History of respiratory failure, improved. Continue current medical regimen. No changes at this time. Job ID: [id number]
--- NOTE | 2018-10-08 10:48 | PRG ---
DATE OF SERVICE: 10/08/2018 Ms. Snyder is sitting quietly in bed, in no distress. She is very tearful over having to give up a pet dog. I really think it would be a good idea for her to resume care of her pet dog and that many studies have shown that the elderly do better with any disease if they can keep their pets. In the event from a clinical standpoint, her vital signs are stable. She relates no shortness of breath or chest discomfort. We will continue to follow with the general machine operator. Job ID: [id number]
--- NOTE | 2018-10-08 11:00 | PDOC.FM ---
- Subjective Subjective: Pt resting in bed. She is not on oxygen at this time. Reports doing well. No acute events overnight. Denies any fever or chills. No acute concerns from nursing - Objective MAR Reviewed: Yes Vital Signs & Weight: Vital Signs (12 hours) Temp Pulse Resp BP Pulse Ox 10/08/18 09:06 93 123/61 10/08/18 08:00 99 10/08/18 07:53 97 10/08/18 07:51 96 17 98 10/08/18 07:32 97.6 F 10/08/18 05:40 97 10/08/18 03:30 97.7 F 10/07/18 23:58 98 10/07/18 23:38 98.8 F Weight Admit Weight 69.3 kg Weight 61.598 kg Most Recent Monitor Data Heart Rate from ECG 94 NIBP 123/61 NIBP BP-Mean 81 Respiration from ECG 26 SpO2 97 I&O: 10/07/18 10/08/18 10/09/18 06:59 06:59 06:59 Intake Total 1905 1350 Output Total 2590 2450 Balance -685 -1100 Result Diagrams: 10/07/18 05:05 10/08/18 04:40 EKG Reviewed by me: Yes (Sinus rhythm on tele) Radiology Reviewed by me: Yes (No new imaging to review ) Phys Exam - Physical Examination Constitutional: NAD HEENT: PERRLA, moist MMs Neck: no nodes, supple, full ROM some mild rales noted bilaterally Cardiovascular: RRR, no significant murmur, no rub Gastrointestinal: soft, non-tender, positive bowel sounds Musculoskeletal: no edema, pulses present Neurological: non-focal, normal sensation Deviation from normal: Pt has somewhat a depressed affect today Skin: no rash, normal turgor, cap refill <2 seconds Dx/Plan (1) Acute and chronic respiratory failure ([id number]) Code(s): J96.20 - ACUTE AND CHR RESP FAILURE, UNSP W HYPOXIA OR HYPERCAPNIA Status: Resolved Qualifiers: Respiratory failure complication: hypoxia and hypercapnia Qualified Code(s) : J96.21 - Acute and chronic respiratory failure with hypoxia; J96.22 - Acute and chronic respiratory failure with hypercapnia (2) COPD (chronic obstructive pulmonary disease) Status: Acute (3) CHF (congestive heart failure) Code(s): I50.9 - HEART FAILURE, UNSPECIFIED Status: Acute Qualifiers: Heart failure chronicity: chronic (4) Physical deconditioning Code(s): R53.81 - OTHER MALAISE Status: Acute (5) UTI (urinary tract infection) Status: Acute (6) Atrial fibrillation Code(s): I48.91 - UNSPECIFIED ATRIAL FIBRILLATION Status: Chronic Qualifiers: Atrial fibrillation type: chronic Qualified Code(s): I48.2 - Chronic atrial fibrillation (7) Seizure Code(s): R56.9 - UNSPECIFIED CONVULSIONS Status: Acute - Plan Plan: Tonic-clonic seizure like activity - Keppra 500mg BID, fosphenytoin. -Neurology consulted -No apparent source, including electrolyte abnormalities -Pt has lorazepam allergy of unknown significance, avoiding this med for now -EEG read pending Acute on chronic hypoxic respiratory failure, resolved - 2/2 COPD w/ CHF contributing - satting well on RA - home lasix dose -Cardiology and pulmonology consulted, appreciate recommendations e. feacalis UTI - amoxicillin leukocytosis - likely 2/2 steroid, monitor - afebrile, procal neg, cxr wnl Hypokalemia - likely 2/2 lasix - monitor and replete as needed Oliguria, resolved -Complicated by CHF and concern for fluid overload, SHANNAN, and hypotension. -Continuing monitoring Hypotension, resolved - continue to monitor, add HTN rx if needed HFpEF -TTE shows EF of 55-60% and elevated pulmonary pressure -Cardiology consulted, we will appreciate their recommendations SHANNAN on CKD 3, resolved -Continue following -FeUrea consistent with ATN Anemia -stable, monitor -Likely iron deficiency Afib, paced -Rate controlled -Holding metoprolol -ASA Code: full dispo: transfer to stroke with continued respiratory stability
--- NOTE | 2018-10-08 18:48 | PRG ---
DATE OF SERVICE: 10/08/2018 SUBJECTIVE: Ms. Snyder has no complaints. She is contemplating moving to [facility] to live with her daughter. She is willing to go into an assisted living or skilled unit until she can get over to [place] and arrangements can be made. OBJECTIVE: VITAL SIGNS: She is afebrile. Heart rate is 97, respiratory rate 18, oximetry is 95 on room air, blood pressure 120/77. Intake and outputs, negative 1100 mL. LUNGS: Clear. HEART: Regular rhythm. ABDOMEN: Soft. IMPRESSION: Acute on chronic diastolic heart failure. She appears to be clinically stable. Gradually increase her activity. Watch her intake and output. Continue current medication. Job ID: [id number]
[2018-10-08] MEDS: Atorvastatin Calcium 20 MG TAB PO SCH (20:56)
[2018-10-09 05:38] LABS: Anion Gap 12 mmol/L (10-20); BUN (Urea Nitrogen) 17 mg/dL (9.8-20.1); Calc. Creatinine Clearance 66 mL/min (70-130); Calcium 8.3 mg/dL (7.8-10.44); Carbon Dioxide 31 mmol/L (23-31); Chloride 100 mmol/L (98-107); Estimated GFR-MDRD 81; Glucose 87 mg/dL (83-110); Sodium 139 mmol/L (136-145)
--- NOTE | 2018-10-09 07:21 | PDOC.FM ---
- Subjective Subjective: Pt is resting in bed. She is up. She is breathing without any distress at this time. No acute concerns at this time. Denies any SOB, fever or chills. Denies any Chest pain. Pt is tearful at times. Pt is sad about current situation. - Objective Vital Signs & Weight: Vital Signs (12 hours) Temp Pulse Resp BP Pulse Ox 10/09/18 03:10 98.0 F 89 16 136/72 93 L 10/09/18 00:02 98.3 F 90 15 154/81 H 92 L 10/08/18 23:52 20 10/08/18 20:56 94 10/08/18 20:11 98.6 F 94 16 185/117 H 96 10/08/18 20:00 96 Weight Admit Weight 69.3 kg Weight 61.598 kg Most Recent Monitor Data Heart Rate from ECG 102 NIBP 144/82 NIBP BP-Mean 102 Respiration from ECG 15 SpO2 100 I&O: 10/08/18 10/09/18 10/10/18 06:59 06:59 06:59 Intake Total 1350 200 Output Total 2450 Balance -1100 200 Result Diagrams: 10/07/18 05:05 10/09/18 04:37 EKG Reviewed by me: Yes Radiology Reviewed by me: Yes Radiology: No new imaging to review Phys Exam - Physical Examination Constitutional: NAD HEENT: PERRLA, moist MMs Neck: no nodes, no JVD, supple, full ROM Some mild rales noted bilaterally Cardiovascular: RRR, no significant murmur, no rub Gastrointestinal: soft, non-tender, no distention, positive bowel sounds Musculoskeletal: no edema, pulses present Neurological: non-focal, normal sensation Deviation from normal: Pt has depressed affect. Pt is tearful Skin: no rash, normal turgor, cap refill <2 seconds Dx/Plan (1) Acute and chronic respiratory failure ([id number]) Code(s): J96.20 - ACUTE AND CHR RESP FAILURE, UNSP W HYPOXIA OR HYPERCAPNIA Status: Resolved Qualifiers: Respiratory failure complication: hypoxia and hypercapnia Qualified Code(s) : J96.21 - Acute and chronic respiratory failure with hypoxia; J96.22 - Acute and chronic respiratory failure with hypercapnia (2) COPD (chronic obstructive pulmonary disease) Status: Acute (3) CHF (congestive heart failure) Code(s): I50.9 - HEART FAILURE, UNSPECIFIED Status: Acute Qualifiers: Heart failure chronicity: chronic (4) Physical deconditioning Code(s): R53.81 - OTHER MALAISE Status: Acute (5) UTI (urinary tract infection) Status: Acute (6) Atrial fibrillation Code(s): I48.91 - UNSPECIFIED ATRIAL FIBRILLATION Status: Chronic Qualifiers: Atrial fibrillation type: chronic Qualified Code(s): I48.2 - Chronic atrial fibrillation (7) Seizure Code(s): R56.9 - UNSPECIFIED CONVULSIONS Status: Acute - Plan Plan: Tonic-clonic seizure like activity - Keppra 500mg BID, fosphenytoin. -Neurology consulted -No apparent source, including electrolyte abnormalities -Pt has lorazepam allergy of unknown significance, avoiding this med for now -EEG read pending Acute on chronic hypoxic respiratory failure, resolved - 2/2 COPD w/ CHF contributing - satting well on RA - home lasix dose. Will continue to monitor I&O -Cardiology and pulmonology consulted, appreciate recommendations e. feacalis UTI - amoxicillin leukocytosis - likely 2/2 steroid, monitor. Has downtrended - afebrile, procal neg, cxr wnl Hypokalemia (Resolved) - likely 2/2 lasix - monitor and replete as needed Oliguria, resolved -Complicated by CHF and concern for fluid overload, SHANNAN, and hypotension. -Continuing monitoring Hypotension, resolved - continue to monitor, add HTN rx if needed HFpEF -TTE shows EF of 55-60% and elevated pulmonary pressure -Cardiology consulted, we will appreciate their recommendations SHANNAN on CKD 3, resolved -Continue following -FeUrea consistent with ATN Anemia -stable, monitor -Likely iron deficiency Afib, paced -Rate controlled -Holding metoprolol
[2018-10-09] MEDS: DULoxetine 60 MG CAP PO SCH (08:57)
[2018-10-09] MEDS: AMOXicillin 250 MG CAP PO SCH ×3 (08:57→21:40)
[2018-10-09] MEDS: Famotidine 20 MG TAB PO SCH ×2 (08:57→21:40)
[2018-10-09] MEDS: hydrALAZINE 25 MG TAB PO SCH ×2 (08:57→21:40)
[2018-10-09] MEDS: Potassium Chloride 20 MEQ TAB PO SCH (08:57)
[2018-10-09] MEDS: predniSONE 20 MG TAB PO SCH (08:57)
[2018-10-09] MEDS: Metoprolol Tartrate 25 MG TAB PO SCH ×2 (08:58→21:39)
[2018-10-09] MEDS: Furosemide 40 MG TAB PO SCH (08:58)
[2018-10-09] MEDS: Docusate Sodium 100 MG/10 ML UDCUP PO SCH ×3 (08:59→21:41)
[2018-10-09] MEDS: Enoxaparin Sodium 40 MG/0.4 ML SYRINGE SC SCH (08:59)
[2018-10-09] MEDS: levETIRAcetam 500 MG TAB PO SCH ×2 (08:59→21:40)
--- NOTE | 2018-10-09 10:49 | PRG ---
DATE OF SERVICE: 10/09/2018 Ms. Snyder is sitting quietly in bed, in no distress. She evidently is wanting to move to [place] to live with her daughter. She is also upset that she is not allowed to eat more. We explained to her the risk of aspiration. She states that despite the risk of aspiration, she wants to be on a regular diet, and her wishes will be honored. Job ID: [id number]
[2018-10-09] MEDS ORDERED: DULoxetine 60 MG CAP PO SCH (13:15)
--- NOTE | 2018-10-09 18:30 | PRG ---
DATE OF SERVICE: 10/09/2018 SUBJECTIVE: Claudio appears in no distress. She has no complaints. She wants to do a sleep study while she is in the hospital. I have explained to her that it is not possible. OBJECTIVE: VITAL SIGNS: She is afebrile. Heart rate is 96, respiratory rate is 20, oximetry is 95% on room air, and blood pressure 146/98. LUNGS: Clear. HEART: Regular rhythm. ABDOMEN: Soft. IMPRESSION: 1. Acute on chronic diastolic heart failure. 2. ? Sleep apnea. She said she had a sleep study many years ago that showed she had sleep apnea. She had CPAP and when her CPAP broke, they wanted her to do another sleep study, which she was unwilling to do. This can be set up as an outpatient. She is followed by a riprap man at [facility] and can keep her followup appointments with her. We will sign off. Job ID: [id number]
[2018-10-09] MEDS: Atorvastatin Calcium 20 MG TAB PO SCH (21:39)
[2018-10-09] MEDS: hydrOXYzine 25 MG TAB PO SCH (21:40)
[2018-10-10 04:35] LABS: Anion Gap 10 mmol/L (10-20); BUN (Urea Nitrogen) 16 mg/dL (9.8-20.1); Calc. Creatinine Clearance 61 mL/min (70-130); Calcium 8.7 mg/dL (7.8-10.44); Carbon Dioxide 33 mmol/L (23-31); Chloride 99 mmol/L (98-107); Estimated GFR-MDRD 74; Glucose 86 mg/dL (83-110); Potassium 3.9 mmol/L (3.5-5.1); Sodium 138 mmol/L (136-145)
--- NOTE | 2018-10-10 06:25 | PDOC.FM ---
- Subjective Subjective: Ms. Snyder has no concerns this morning. Denies any pain. Awaiting breakfast. - Objective Vital Signs & Weight: Vital Signs (12 hours) Temp Pulse Resp BP BP Pulse Ox 10/10/18 04:00 97.4 F L 88 20 163/108 H 93 L 10/10/18 02:10 94 L 10/10/18 00:00 97.3 F L 88 20 157/94 H 91 L 10/09/18 21:40 96 158/96 H 10/09/18 20:00 97.3 F L 96 20 158/96 H 92 L Weight Admit Weight 69.3 kg Weight 61.598 kg Most Recent Monitor Data Heart Rate from ECG 102 NIBP 144/82 NIBP BP-Mean 102 Respiration from ECG 15 SpO2 100 I&O: 10/08/18 10/09/18 10/10/18 06:59 06:59 06:59 Intake Total 1350 200 Output Total 2450 Balance -1100 200 Result Diagrams: 10/07/18 05:05 10/10/18 03:58 Phys Exam - Physical Examination Constitutional: NAD Respiratory: no wheezing, clear to auscultation bilateral Cardiovascular: RRR, no significant murmur Gastrointestinal: soft Musculoskeletal: no edema Skin: normal turgor Dx/Plan (1) CHF (congestive heart failure) Code(s): I50.9 - HEART FAILURE, UNSPECIFIED Status: Acute Qualifiers: Heart failure chronicity: chronic (2) COPD (chronic obstructive pulmonary disease) Status: Acute (3) Physical deconditioning Code(s): R53.81 - OTHER MALAISE Status: Acute (4) Seizure Code(s): R56.9 - UNSPECIFIED CONVULSIONS Status: Acute (5) Atrial fibrillation Code(s): I48.91 - UNSPECIFIED ATRIAL FIBRILLATION Status: Chronic Qualifiers: Atrial fibrillation type: chronic Qualified Code(s): I48.2 - Chronic atrial fibrillation - Plan Plan: Tonic-clonic seizure like activity - Keppra 500mg BID, fosphenytoin. -Neurology consulted -No apparent source, including electrolyte abnormalities -Pt has lorazepam allergy of unknown significance, avoiding this med for now -EEG read pending Acute on chronic hypoxic respiratory failure, resolved - 2/2 COPD w/ CHF contributing - satting well on RA - home lasix dose. Will continue to monitor I&O -Cardiology and pulmonology consulted, appreciate recommendations e. feacalis UTI - amoxicillin 8/ leukocytosis - likely 2/2 steroid, monitor. Has downtrended - afebrile, procal neg, cxr wnl Hypokalemia (Resolved) - likely 2/2 lasix - monitor and replete as needed Oliguria, resolved -Complicated by CHF and concern for fluid overload, SHANNAN, and hypotension. -Continuing monitoring Hypotension, resolved - continue to monitor, add HTN rx if needed HFpEF -TTE shows EF of 55-60% and elevated pulmonary pressure -Cardiology consulted, we will appreciate their recommendations SHANNAN on CKD 3, resolved -Continue following -FeUrea consistent with ATN Anemia -stable, monitor -Likely iron deficiency Afib, paced -Rate controlled -Holding metoprolol Dispo: Will discuss placement options with CM. EEG read pending and appreciate any further neuro recs. Addendum - Attending - Attending Attestation Date/Time: 10/10/18 1205 I personally evaluated the patient and discussed the management with Dr. Heredia I agree with the History, Examination, Assessment and Plan documented above with any addition or exceptions noted below - Patient without complaints. Afebrile VSS. A/p: 1) Acute on chronic resp failure- improved; continue nebs/O2 as needed. 2) Seizures - no further seizure activity; continue keppra and phosphenytoin. Check phosphenytoin level. 3) D/c planning - awaiting NH placement.
[2018-10-10] MEDS: levETIRAcetam 500 MG TAB PO SCH ×2 (09:37→21:23)
[2018-10-10] MEDS: Potassium Chloride 20 MEQ TAB PO SCH (09:37)
[2018-10-10] MEDS: Metoprolol Tartrate 25 MG TAB PO SCH ×2 (09:38→21:23)
[2018-10-10] MEDS: Famotidine 20 MG TAB PO SCH ×2 (09:38→21:23)
[2018-10-10] MEDS: AMOXicillin 250 MG CAP PO SCH ×3 (09:38→21:22)
[2018-10-10] MEDS: Furosemide 40 MG TAB PO SCH (09:38)
[2018-10-10] MEDS: DULoxetine 60 MG CAP PO SCH (09:39)
[2018-10-10] MEDS: hydrALAZINE 25 MG TAB PO SCH ×2 (09:40→21:26)
[2018-10-10] MEDS: predniSONE 20 MG TAB PO SCH (09:41)
[2018-10-10] MEDS: Enoxaparin Sodium 40 MG/0.4 ML SYRINGE SC SCH (09:42)
[2018-10-10] MEDS: Docusate Sodium 100 MG/10 ML UDCUP PO SCH ×2 (09:50→23:17)
[2018-10-10] MEDS: Atorvastatin Calcium 20 MG TAB PO SCH (21:23)
[2018-10-10] MEDS: hydrOXYzine 25 MG TAB PO SCH (21:26)
--- NOTE | 2018-10-11 06:09 | PDOC.FM ---
- Subjective Subjective: Ms. Snyder reports feeling well this morning. She would like to sit up in chair. Does not like seizure precautions as she cant access controls for bed. Denies SOB. Awaiting placement. - Objective Vital Signs & Weight: Vital Signs (12 hours) Temp Pulse Resp BP BP Pulse Ox 10/11/18 04:00 98.1 F 86 16 150/91 H 94 L 10/11/18 00:00 98.3 F 94 17 155/80 H 95 10/10/18 21:26 99 146/93 H 10/10/18 20:00 98.4 F 99 17 146/93 H 94 L Weight Admit Weight 69.3 kg Weight 61.598 kg Most Recent Monitor Data Heart Rate from ECG 102 NIBP 144/82 NIBP BP-Mean 102 Respiration from ECG 15 SpO2 100 I&O: 10/09/18 10/10/18 10/11/18 06:59 06:59 06:59 Intake Total 200 360 Balance 200 360 Result Diagrams: 10/07/18 05:05 10/10/18 03:58 Phys Exam - Physical Examination Constitutional: NAD Respiratory: no wheezing, clear to auscultation bilateral Cardiovascular: RRR, no significant murmur Gastrointestinal: soft, non-tender Musculoskeletal: no edema Neurological: moves all 4 limbs Skin: normal turgor Dx/Plan (1) CHF (congestive heart failure) Code(s): I50.9 - HEART FAILURE, UNSPECIFIED Status: Acute Qualifiers: Heart failure chronicity: chronic (2) COPD (chronic obstructive pulmonary disease) Status: Acute (3) Physical deconditioning Code(s): R53.81 - OTHER MALAISE Status: Acute (4) Seizure Code(s): R56.9 - UNSPECIFIED CONVULSIONS Status: Acute (5) Atrial fibrillation Code(s): I48.91 - UNSPECIFIED ATRIAL FIBRILLATION Status: Chronic Qualifiers: Atrial fibrillation type: chronic Qualified Code(s): I48.2 - Chronic atrial fibrillation - Plan Plan: Tonic-clonic seizure like activity -Keppra 500mg BID, fosphenytoin. -Neurology consulted, will try to find out if pt needs to be continued on both meds upon discharge -No apparent source, including electrolyte abnormalities -Pt has lorazepam allergy of unknown significance, avoiding this med for now -EEG read pending Acute on chronic hypoxic respiratory failure, resolved - 2/2 COPD w/ CHF contributing - satting well on RA - home lasix dose. Will continue to monitor I&O - Cardiology and pulmonology consulted brandyn begum UTI - amoxicillin 10/06, will d/c leukocytosis - likely 2/2 steroid, monitor. Has downtrended Hypokalemia (Resolved) - likely 2/2 lasix - monitor and replete as needed Oliguria, resolved -Complicated by CHF and concern for fluid overload, SHANNAN, and hypotension. -Continuing monitoring Hypotension, resolved - continue to monitor, add HTN rx if needed HFpEF -TTE shows EF of 55-60% and elevated pulmonary pressure -Cardiology consulted SHANNAN on CKD 3, resolved -Continue following -FeUrea consistent with ATN Anemia -stable, monitor -Likely iron deficiency Afib, paced -Rate controlled -Continue metoprolol Dispo: Awaiting placement approval with . EEG read pending and appreciate any further neuro recs. Addendum - Attending - Attending Attestation Date/Time: 10/12/18 0905 I personally evaluated the patient and discussed the management with Dr. Heredia on 10/11/2018 I agree with the History, Examination, Assessment and Plan documented above with any addition or exceptions noted below - Patient without complaints. Ready to go to SNF to become stronger. Afebrile VSS. A/P: 1) resp failure- resolved; 2 ) COPD- continue current meds. 3) Deconditioning - awaiting insurance approval for SNF.
[2018-10-11] MEDS: Docusate Sodium 100 MG/10 ML UDCUP PO SCH (09:08)
[2018-10-11] MEDS: DULoxetine 60 MG CAP PO SCH (09:08)
[2018-10-11] MEDS: Potassium Chloride 20 MEQ TAB PO SCH (09:10)
[2018-10-11] MEDS: AMOXicillin 250 MG CAP PO SCH ×2 (09:10→15:03)
[2018-10-11] MEDS: levETIRAcetam 500 MG TAB PO SCH ×2 (09:10→20:45)
[2018-10-11] MEDS: predniSONE 20 MG TAB PO SCH (09:11)
[2018-10-11] MEDS: hydrALAZINE 25 MG TAB PO SCH ×2 (09:11→20:45)
[2018-10-11] MEDS: Famotidine 20 MG TAB PO SCH ×2 (09:11→20:45)
[2018-10-11] MEDS: Furosemide 40 MG TAB PO SCH (09:11)
[2018-10-11] MEDS: Enoxaparin Sodium 40 MG/0.4 ML SYRINGE SC SCH (09:13)
[2018-10-11] MEDS: Acetaminophen 650 MG/20.3 ML UDCUP PO PRN (09:14)
[2018-10-11] MEDS: Metoprolol Tartrate 25 MG TAB PO SCH ×2 (09:28→20:44)
[2018-10-11] MEDS ORDERED: Ondansetron ODT 4 MG TAB PO PRN (11:51)
[2018-10-11] MEDS ORDERED: Ondansetron HCl/PF 8 MG in Sodium Chloride 0.9% 50 ML IVPB PRN (11:51)
[2018-10-11] MEDS ORDERED: Ondansetron PF 4 MG/2 ML Vial IVP PRN (11:52)
--- NOTE | 2018-10-11 13:29 | EKG ---
Test Reason : SOB/WEAKNESS Blood Pressure : / mmHG Vent. Rate : 087 BPM Atrial Rate : 093 BPM P-R Int : 000 ms QRS Dur : 082 ms QT Int : 352 ms P-R-T Axes : 000 114 -88 degrees QTc Int : 423 ms Atrial fibrillation with premature ventricular or aberrantly conducted complexes Right axis deviation Possible Right ventricular hypertrophy Nonspecific ST and T wave abnormality , probably digitalis effect Abnormal ECG Confirmed by JAY HERNANDEZ DO ([id number]), editorial cartoonist EVELYN VILLATORO ([id number]) on 10/11/2018 1:29:14 PM Referred By: Confirmed By:JAY HERNANDEZ DO
[2018-10-11] MEDS: Atorvastatin Calcium 20 MG TAB PO SCH (20:45)
[2018-10-11] MEDS: hydrOXYzine 25 MG TAB PO SCH (20:47)
[2018-10-12] MEDS: Docusate Sodium 100 MG/10 ML UDCUP PO SCH ×3 (06:08→21:33)
[2018-10-12] MEDS: Acetaminophen 650 MG/20.3 ML UDCUP PO PRN (06:26)
--- NOTE | 2018-10-12 06:46 | PDOC.FM ---
- Subjective Subjective: Niharika says she needs to go to the bathroom this morning. Otherwise she has no complaints. Is awaiting placement to go through. Denies difficulty breathing, SOB. - Objective MAR Reviewed: Yes Vital Signs & Weight: Vital Signs (12 hours) Temp Pulse Resp BP Pulse Ox 10/12/18 04:00 97.5 F L 85 19 121/71 95 10/11/18 20:45 92 10/11/18 20:18 92 16 95 10/11/18 20:15 95 10/11/18 20:00 99.5 F 92 19 111/66 91 L Weight Admit Weight 69.3 kg Weight 61.598 kg Most Recent Monitor Data Heart Rate from ECG 102 NIBP 144/82 NIBP BP-Mean 102 Respiration from ECG 15 SpO2 100 I&O: 10/10/18 10/11/18 10/12/18 06:59 06:59 06:59 Intake Total 390 720 Balance 390 720 Result Diagrams: 10/07/18 05:05 10/10/18 03:58 Phys Exam - Physical Examination Constitutional: NAD Respiratory: no wheezing, clear to auscultation bilateral Cardiovascular: RRR, no significant murmur Gastrointestinal: soft, non-tender, positive bowel sounds Musculoskeletal: no edema Neurological: non-focal Skin: normal turgor Dx/Plan (1) CHF (congestive heart failure) Code(s): I50.9 - HEART FAILURE, UNSPECIFIED Status: Acute Qualifiers: Heart failure chronicity: chronic (2) COPD (chronic obstructive pulmonary disease) Status: Acute (3) Physical deconditioning Code(s): R53.81 - OTHER MALAISE Status: Acute (4) Seizure Code(s): R56.9 - UNSPECIFIED CONVULSIONS Status: Acute (5) Atrial fibrillation Code(s): I48.91 - UNSPECIFIED ATRIAL FIBRILLATION Status: Chronic Qualifiers: Atrial fibrillation type: chronic Qualified Code(s): I48.2 - Chronic atrial fibrillation - Plan Plan: Tonic-clonic seizure like activity -Keppra 500mg BID. Dilantin discontinued 10/11. Per neuro, pt will need to be on keppra for 2 more weeks then may taper off gradually if no new seizures. -Neurology consulted -No apparent source, including electrolyte abnormalities -Pt has lorazepam allergy of unknown significance, avoiding this med for now -EEG read pending Acute on chronic hypoxic respiratory failure, resolved - 2/2 COPD w/ CHF contributing - satting well on RA - home lasix dose. Will continue to monitor I&O - Cardiology and pulmonology consulted eMallorie begum UTI, resolved - treated with amoxicillin 10/06-6 leukocytosis - likely 2/2 steroid, monitor. Has downtrended Hypokalemia (Resolved) - likely 2/2 lasix - monitor and replete as needed Oliguria, resolved -Complicated by CHF and concern for fluid overload, SHANNAN, and hypotension. -Continuing monitoring Hypotension, resolved - continue to monitor, add HTN rx if needed HFpEF -TTE shows EF of 55-60% and elevated pulmonary pressure -Cardiology consulted SHANNAN on CKD 3, resolved -Continue following -FeUrea consistent with ATN Anemia -stable, monitor -Likely iron deficiency Afib, paced -Rate controlled -Continue metoprolol Dispo: Awaiting placement approval with . Addendum - Attending - Attending Attestation Date/Time: 10/12/18 1042 I personally evaluated the patient and discussed the management with Dr. Heredia I agree with the History, Examination, Assessment and Plan documented above with any addition or exceptions noted below - Patient sitting up in bed; no complaints. denies any SOB. Afebrile VSS. A/P: 1) Resp failure secondary to COPD - stable. 2) COPD- stable; continue current meds. 3) D/c planning- awaiting insurance approval for SNF due to deconditioning
[2018-10-12] MEDS: DULoxetine 60 MG CAP PO SCH (09:33)
[2018-10-12] MEDS: Furosemide 40 MG TAB PO SCH (09:34)
[2018-10-12] MEDS: Potassium Chloride 20 MEQ TAB PO SCH (09:34)
[2018-10-12] MEDS: levETIRAcetam 500 MG TAB PO SCH ×2 (09:34→21:32)
[2018-10-12] MEDS: Metoprolol Tartrate 25 MG TAB PO SCH ×2 (09:34→21:32)
[2018-10-12] MEDS: Famotidine 20 MG TAB PO SCH ×2 (09:34→21:32)
[2018-10-12] MEDS: Enoxaparin Sodium 40 MG/0.4 ML SYRINGE SC SCH (09:40)
[2018-10-12] MEDS: hydrALAZINE 25 MG TAB PO SCH ×2 (09:40→21:32)
[2018-10-12] MEDS: predniSONE 20 MG TAB PO SCH (09:40)
[2018-10-12 14:16] VITALS: BMI 25.6
[2018-10-12] MEDS ORDERED: hydrOXYzine 10 MG TAB PO PRN (20:31)
[2018-10-12] MEDS: hydrOXYzine 25 MG TAB PO SCH (21:32)
[2018-10-12] MEDS: Atorvastatin Calcium 20 MG TAB PO SCH (21:33)
--- NOTE | 2018-10-13 06:40 | PDOC.FM ---
- Subjective Subjective: Ms. Snyder was sleeping in bed. She report feeling very tired as she did not sleep well last night. Tolerating PO intake well. Denies SOB or difficulty breathing. No other concerns. - Objective MAR Reviewed: Yes Vital Signs & Weight: Vital Signs (12 hours) Temp Pulse Resp BP BP Pulse Ox 10/13/18 03:28 98.0 F 85 16 135/85 93 L 10/12/18 21:32 84 133/81 10/12/18 20:00 94 L 10/12/18 18:50 84 18 94 L Weight Admit Weight 69.3 kg Weight 61.598 kg Most Recent Monitor Data Heart Rate from ECG 102 NIBP 144/82 NIBP BP-Mean 102 Respiration from ECG 15 SpO2 100 I&O: 10/11/18 10/12/18 10/13/18 06:59 06:59 06:59 Intake Total 390 720 950 Balance 390 720 950 Result Diagrams: 10/07/18 05:05 10/10/18 03:58 Phys Exam - Physical Examination Constitutional: NAD Respiratory: clear to auscultation bilateral (anteriorly) Cardiovascular: RRR, no significant murmur Gastrointestinal: soft, non-tender, positive bowel sounds Musculoskeletal: no edema Neurological: non-focal Skin: normal turgor, cap refill <2 seconds Dx/Plan (1) CHF (congestive heart failure) Code(s): I50.9 - HEART FAILURE, UNSPECIFIED Status: Acute Qualifiers: Heart failure chronicity: chronic (2) COPD (chronic obstructive pulmonary disease) Status: Acute (3) Physical deconditioning Code(s): R53.81 - OTHER MALAISE Status: Acute (4) Seizure Code(s): R56.9 - UNSPECIFIED CONVULSIONS Status: Acute (5) Atrial fibrillation Code(s): I48.91 - UNSPECIFIED ATRIAL FIBRILLATION Status: Chronic Qualifiers: Atrial fibrillation type: chronic Qualified Code(s): I48.2 - Chronic atrial fibrillation - Plan Plan: Tonic-clonic seizure like activity -Keppra 500mg BID. Dilantin discontinued 10/11. Per neuro, pt will need to be on keppra for 2 more weeks then may taper off gradually if no new seizures. -Neurology consulted -No apparent source, including electrolyte abnormalities -Pt has lorazepam allergy of unknown significance, avoiding this med for now -EEG read pending Acute on chronic hypoxic respiratory failure, resolved - 2/2 COPD w/ CHF contributing - satting well on RA - home lasix dose. Will continue to monitor I&O - Cardiology and pulmonology consulted eMallorie gilbertojosephinekarthik UTI, resolved - treated with amoxicillin 10/06-6 leukocytosis - likely 2/2 steroid, monitor. Has downtrended Hypokalemia (Resolved) - likely 2/2 lasix - monitor and replete as needed Oliguria, resolved -Complicated by CHF and concern for fluid overload, SHANNAN, and hypotension. -Continuing monitoring Hypotension, resolved - continue to monitor, add HTN rx if needed HFpEF -TTE shows EF of 55-60% and elevated pulmonary pressure -Cardiology consulted SHANNAN on CKD 3, resolved -Continue following -FeUrea consistent with ATN Anemia -stable, monitor -Likely iron deficiency Afib, paced -Rate controlled -Continue metoprolol Dispo: Awaiting placement approval with CM. Addendum - Attending - Attending Attestation Date/Time: 10/13/18 1035 I personally evaluated the patient and discussed the management with Dr. Heredia I agree with the History, Examination, Assessment and Plan documented above with any addition or exceptions noted below - Patient without complaints. Afebrile VSS A/P: 1) COPD- stable; continue current meds. 2) Seizures- no further seizures noted; continue keppra. 3) Deconditioning - awaiting SNF placement.
[2018-10-13] MEDS: DULoxetine 60 MG CAP PO SCH (09:23)
[2018-10-13] MEDS: hydrALAZINE 25 MG TAB PO SCH ×2 (09:25→20:30)
[2018-10-13] MEDS: Metoprolol Tartrate 25 MG TAB PO SCH ×2 (09:26→20:30)
[2018-10-13] MEDS: Famotidine 20 MG TAB PO SCH ×2 (09:26→20:29)
[2018-10-13] MEDS: levETIRAcetam 500 MG TAB PO SCH ×2 (09:27→20:31)
[2018-10-13] MEDS: Furosemide 40 MG TAB PO SCH (09:27)
[2018-10-13] MEDS: Enoxaparin Sodium 40 MG/0.4 ML SYRINGE SC SCH (09:28)
[2018-10-13] MEDS: Potassium Chloride 20 MEQ TAB PO SCH (09:52)
[2018-10-13] MEDS ORDERED: Lidocaine-Prilocaine 2.5% Cream 5 GM TUBE TOP SCH (15:00)
[2018-10-13] MEDS: Acetaminophen 650 MG/20.3 ML UDCUP PO PRN (16:31)
[2018-10-13] MEDS: Calcium Carbonate + Vit D 1 TAB PO SCH (20:29)
[2018-10-13] MEDS: Montelukast Sodium 10 mg Tablet PO SCH (20:29)
[2018-10-13] MEDS: hydrOXYzine 25 MG TAB PO SCH (20:29)
[2018-10-13] MEDS: Atorvastatin Calcium 20 MG TAB PO SCH (20:29)
[2018-10-13] MEDS: Brimonidine Tartrate 0.2% Ophth Soln 5 ml Bottle EA EYE SCH (20:31)
--- NOTE | 2018-10-14 06:29 | PDOC.FM ---
- Subjective Subjective: Ms. Snyder was resting comfortably this morning. Awaiting placement. She did not want to get poke to establish IV access and get central line removed yesterday. Plan for this to happen today. - Objective Vital Signs & Weight: Vital Signs (12 hours) Temp Pulse Resp BP BP Pulse Ox 10/14/18 04:00 97.5 F L 78 16 107/69 93 L 10/14/18 00:00 98 F 76 18 119/72 94 L 10/13/18 20:30 87 108/65 10/13/18 20:00 95 10/13/18 19:53 98.2 F 87 18 108/65 95 10/13/18 18:58 80 12 Weight Admit Weight 69.3 kg Weight 61.598 kg Most Recent Monitor Data Heart Rate from ECG 102 NIBP 144/82 NIBP BP-Mean 102 Respiration from ECG 15 SpO2 100 I&O: 10/12/18 10/13/18 10/14/18 06:59 06:59 06:59 Intake Total 720 950 470 Balance 720 950 470 Result Diagrams: 10/07/18 05:05 10/10/18 03:58 Phys Exam - Physical Examination Constitutional: NAD Respiratory: no wheezing, clear to auscultation bilateral Cardiovascular: RRR, no significant murmur Gastrointestinal: soft, non-tender Musculoskeletal: no edema Skin: normal turgor Dx/Plan (1) CHF (congestive heart failure) Code(s): I50.9 - HEART FAILURE, UNSPECIFIED Status: Acute Qualifiers: Heart failure chronicity: chronic (2) COPD (chronic obstructive pulmonary disease) Status: Acute (3) Physical deconditioning Code(s): R53.81 - OTHER MALAISE Status: Acute (4) Seizure Code(s): R56.9 - UNSPECIFIED CONVULSIONS Status: Acute (5) Atrial fibrillation Code(s): I48.91 - UNSPECIFIED ATRIAL FIBRILLATION Status: Chronic Qualifiers: Atrial fibrillation type: chronic Qualified Code(s): I48.2 - Chronic atrial fibrillation - Plan Plan: Tonic-clonic seizure like activity, resolved -Keppra 500mg BID. Dilantin discontinued 10/11. Per neuro, pt will need to be on keppra for 2 more weeks then may taper off gradually if no new seizures. -Neurology consulted -No apparent source, including electrolyte abnormalities -Pt has lorazepam allergy of unknown significance, avoiding this med for now Acute on chronic hypoxic respiratory failure, resolved - 2/2 COPD w/ CHF contributing - satting well on RA - home lasix dose. Will continue to monitor I&O - Cardiology and pulmonology consulted, signed off e. feacalis UTI, resolved - treated with amoxicillin 10/06-6 leukocytosis - likely 2/2 steroid, monitor. Has downtrended Hypokalemia (Resolved) - likely 2/2 lasix - monitor and replete as needed Oliguria, resolved -Complicated by CHF and concern for fluid overload, SHANNAN, and hypotension. -Continuing monitoring Hypotension, resolved - continue to monitor, add HTN rx if needed HFpEF -TTE shows EF of 55-60% and elevated pulmonary pressure -Cardiology consulted SHANNAN on CKD 3, resolved -Continue following -FeUrea consistent with ATN Anemia -stable, monitor -Likely iron deficiency Afib, paced -Rate controlled -Continue metoprolol Dispo: Awaiting placement approval with CM. Remove IJ today. Addendum - Attending - Attending Attestation Date/Time: 10/14/18 5410 I personally evaluated the patient and discussed the management with Dr. Heredia I agree with the History, Examination, Assessment and Plan documented above with any addition or exceptions noted below- Patient without complaints. Afebrile VSS A/P: 1) COPD- stabl;e continue current meds. 2) Seizures- no further seizure; continue keppra, 3) Deconditioning- awaiting rehab eval
[2018-10-14] MEDS: Furosemide 40 MG TAB PO SCH (10:16)
[2018-10-14] MEDS: levETIRAcetam 500 MG TAB PO SCH ×2 (10:16→20:09)
[2018-10-14] MEDS: Famotidine 20 MG TAB PO SCH ×2 (10:16→20:09)
[2018-10-14] MEDS: Enoxaparin Sodium 40 MG/0.4 ML SYRINGE SC SCH (10:16)
[2018-10-14] MEDS: Calcium Carbonate + Vit D 1 TAB PO SCH ×2 (10:16→20:09)
[2018-10-14] MEDS: Brimonidine Tartrate 0.2% Ophth Soln 5 ml Bottle EA EYE SCH ×3 (10:18→20:08)
[2018-10-14] MEDS: DULoxetine 60 MG CAP PO SCH (10:19)
[2018-10-14] MEDS: Potassium Chloride 20 MEQ TAB PO SCH (10:19)
[2018-10-14] MEDS: Metoprolol Tartrate 25 MG TAB PO SCH ×2 (10:20→20:09)
[2018-10-14] MEDS: hydrALAZINE 25 MG TAB PO SCH ×2 (10:20→20:08)
[2018-10-14] MEDS ORDERED: DULoxetine 30 MG CAP PO SCH (10:30)
[2018-10-14] MEDS: Acetaminophen 650 MG/20.3 ML UDCUP PO PRN (17:07)
[2018-10-14] MEDS: Lidocaine-Prilocaine 2.5% Cream 5 GM TUBE TOP SCH (17:36)
[2018-10-14] MEDS: Atorvastatin Calcium 20 MG TAB PO SCH (20:09)
[2018-10-14] MEDS: hydrOXYzine 25 MG TAB PO SCH (20:09)
[2018-10-14] MEDS: Montelukast Sodium 10 mg Tablet PO SCH (20:09)
--- NOTE | 2018-10-15 07:00 | PDOC.FM ---
- Subjective Subjective: Patient reports she felt cold last night. Otherwise she has no complaints and is awaiting going to rehab today. - Objective Vital Signs & Weight: Vital Signs (12 hours) Temp Pulse Resp BP BP Pulse Ox 10/15/18 05:52 75 16 10/15/18 03:55 97.6 F 79 19 129/73 96 10/15/18 01:09 80 16 95 10/14/18 23:47 97.6 F 86 19 112/63 96 10/14/18 20:08 74 120/58 L 10/14/18 20:00 97.7 F 81 19 120/58 L 94 L Weight Admit Weight 69.3 kg Weight 61.598 kg Most Recent Monitor Data Heart Rate from ECG 102 NIBP 144/82 NIBP BP-Mean 102 Respiration from ECG 15 SpO2 100 I&O: 10/13/18 10/14/18 10/15/18 06:59 06:59 06:59 Intake Total 950 470 310 Balance 950 470 310 Result Diagrams: 10/07/18 05:05 10/10/18 03:58 Phys Exam - Physical Examination Constitutional: NAD Respiratory: clear to auscultation bilateral (anteriorly) Cardiovascular: RRR, no significant murmur Gastrointestinal: soft, non-tender, positive bowel sounds Musculoskeletal: no edema Neurological: non-focal Psychiatric: normal affect Skin: normal turgor Dx/Plan (1) CHF (congestive heart failure) Code(s): I50.9 - HEART FAILURE, UNSPECIFIED Status: Acute Qualifiers: Heart failure chronicity: chronic (2) COPD (chronic obstructive pulmonary disease) Status: Acute (3) Physical deconditioning Code(s): R53.81 - OTHER MALAISE Status: Acute (4) Seizure Code(s): R56.9 - UNSPECIFIED CONVULSIONS Status: Acute (5) Atrial fibrillation Code(s): I48.91 - UNSPECIFIED ATRIAL FIBRILLATION Status: Chronic Qualifiers: Atrial fibrillation type: chronic Qualified Code(s): I48.2 - Chronic atrial fibrillation - Plan Plan: Tonic-clonic seizure like activity, resolved -Keppra 500mg BID. Dilantin discontinued 10/11. Per neuro, pt will need to be on keppra for 2 more weeks then may taper off gradually if no new seizures. -Neurology consulted -No apparent source, including electrolyte abnormalities -Pt has lorazepam allergy of unknown significance, avoiding this med for now Acute on chronic hypoxic respiratory failure, resolved - 2/2 COPD w/ CHF contributing - satting well on RA - home lasix dose. Will continue to monitor I&O - Cardiology and pulmonology consulted, signed off e. [email or web address] UTI, resolved - treated with amoxicillin 10/06-6 leukocytosis - likely 2/2 steroid, monitor. Has downtrended Hypokalemia (Resolved) - likely 2/2 lasix - monitor and replete as needed Oliguria, resolved -Complicated by CHF and concern for fluid overload, SHANNAN, and hypotension. -Continuing monitoring Hypotension, resolved - continue to monitor, add HTN rx if needed HFpEF -TTE shows EF of 55-60% and elevated pulmonary pressure -Cardiology consulted SHANNAN on CKD 3, resolved -FeUrea consistent with ATN Anemia -stable, monitor -Likely iron deficiency Afib, paced -Rate controlled -Continue metoprolol Dispo: Remove IJ. Plan for discharge to rehab today. Addendum - Attending - Attending Attestation Date/Time: 10/15/18 4635 I personally evaluated the patient and discussed the management with Dr. Heredia. I agree with the History, Examination, Assessment and Plan documented above with any addition or exceptions noted below. Patient overall doing well. She is stable for discharge today and will be going to inpatient rehab.
[2018-10-15] MEDS ORDERED: DULoxetine 30 MG CAP PO SCH (09:00)
[2018-10-15] MEDS: Potassium Chloride 20 MEQ TAB PO SCH (09:52)
[2018-10-15] MEDS: Furosemide 40 MG TAB PO SCH (09:53)
[2018-10-15] MEDS: Calcium Carbonate + Vit D 1 TAB PO SCH (09:53)
[2018-10-15] MEDS: Metoprolol Tartrate 25 MG TAB PO SCH (09:54)
[2018-10-15] MEDS: hydrALAZINE 25 MG TAB PO SCH (09:54)
[2018-10-15] MEDS: levETIRAcetam 500 MG TAB PO SCH (09:55)
[2018-10-15] MEDS: Famotidine 20 MG TAB PO SCH (09:55)
[2018-10-15] MEDS: Enoxaparin Sodium 40 MG/0.4 ML SYRINGE SC SCH (10:01)
[2018-10-15] MEDS: Brimonidine Tartrate 0.2% Ophth Soln 5 ml Bottle EA EYE SCH (10:15)
[2018-10-15] MEDS: Lidocaine-Prilocaine 2.5% Cream 5 GM TUBE TOP SCH (10:16)
[2018-10-15 13:24] VITALS: BP 142/68; TEMP 98.6
--- NOTE | 2018-10-17 16:03 | DIS ---
DATE OF ADMISSION: 09/29/2018 DATE OF DISCHARGE: 10/15/2018 RESIDENT: Carey Heredia DO ADMITTING ATTENDING: Marisol Silva MD DISCHARGE ATTENDING: Darwin Branch MD. CONSULT: 1. Cardiology. 2. Neurology, Dr. Singh. 3. Pulmonology, Dr. Peguero. PROCEDURES: 1. On 09/28/2018, chest x-ray showed findings of mild CHF, left basilar opacity , may reflect atelectasis or pneumonia. No pneumothorax demonstrated. 2. On 09/29/2018, brain CT showed no definite acute infarct. 3. On 09/30/2018, echocardiogram showed left ventricular ejection fraction 55% to 60%. Pacer wire visualized in right ventricle, left atrium moderately dilated, mild annular calcification present. Mitral regurgitation, mild tricuspid regurgitation. 4. On 10/01/2018, brain CT showed no acute intracranial abnormality. 5. On 09/29/2018, right IJ central line placed. 6. Intubated on 09/29/2018 and then extubated 10/05/2018. PRIMARY DIAGNOSES: 1. Acute on chronic hypoxic respiratory failure. 2. Urinary tract infection, leukocytosis. 3. Seizure activity, oliguria, hypotension. 4. Heart failure with preserved ejection fraction. 5. Acute kidney injury on chronic kidney disease 3. 6. Atrial fibrillation. 7. Hypokalemia. DISCHARGE MEDICATIONS: 1. Potassium chloride 40 mEq p.o. q.a.m. 2. Keppra 500 mg p.o. b.i.d. 3. Hydroxyzine 10 mg p.o. q.4 hours p.r.n. 4. Cymbalta 90 mg daily. 5. Lasix 40 mg p.o. daily. 6. Tylenol 325 mg 1-2 tab p.o. q.4 hours. 7. Seroquel 25 mg p.o. at bedtime. 8. Zofran 4 mg p.o. q. 6 p.r.n. 9. Metoprolol tartrate 12.5 mg p.o. b.i.d. 11. DuoNeb 3 mL nebulizer q.4 hours p.r.n. 12. Tessalon Perles 100 mg p.o. t.i.d. p.r.n. 13. Breo Ellipta one inhalation daily. 14. Buspirone 10 mg p.o. b.i.d. 15. Calcium and vitamin D one tablet p.o. b.i.d. 16. Pepcid 20 mg p.o. b.i.d. 17. Ventolin inhaler 2 puffs q.6 hours p.r.n. 18. Bupropion 150 mg p.o. q.a.m. 19. Montelukast p.o. at bedtime. 20. Brimonidine tartrate one drop each eye t.i.d. 21. Dorzolamide one drop each eye t.i.d. 22. Latanoprost one drop each eye at bedtime. DISCONTINUED MEDICATIONS: 1. Duloxetine 60 mg p.o. daily. 2. Hydralazine 25 mg p.o. b.i.d. 3. Potassium chloride 20 mEq p.o. q.a.m. with meals. HISTORY OF PRESENT ILLNESS: A 78-year-old female who was recently discharged from rehab, presented with weakness and dyspnea. Reportedly had oxygen saturation in the low 80s and was requiring additional oxygen. Then began to have increased work of breathing and was intubated and sedated in the ER. She was admitted for acute respiratory failure secondary to COPD exacerbation, was admitted to the ICU. She had a central line in the right IJ placed. Low blood pressures were likely secondary to Versed from sedation. Once it was discontinued, the blood pressure increased. Imaging studies are noted as above. The patient reportedly had seizure like activity described as generalized shaking and Neurology was consulted. An EEG was performed. The patient was initially on Keppra as well as phenytoin. The phenytoin was discontinued prior to discharge and Neurology recommended that the Keppra was to be continued for 2 weeks after October 11 and then it may be tapered off gradually if no new seizures occur. The patient was extubated on 10/05 and was eventually moved to the floor. Her respiratory distress resolved and she was saturating well on room air at time of discharge. Her UTI was treated with amoxicillin. Her electrolyte abnormalities were replaced as necessary. The patient was then awaiting placement for quite some time. She was eventually discharged to inpatient rehab for further therapy. DISPOSITION: Stable. DISCHARGE INSTRUCTIONS: 1. Location: Inpatient rehab. 2. Diet: Heart healthy with honey thick liquids. 3. Activity: As tolerated and as recommended by Physical and Occupational Therapy. 4. Follow up with primary care physician after discharge from rehab facility. Job ID: [id number] MTDD
--- NOTE | 2018-10-18 09:55 | EEG ---
Referring Physician: SWATI AUGUSTIN EEG # [id number] TEST TYPE: ROUTINE PORTABLE INPATIENT REPORT: AN EEG USING THE [employer]NATIONAL TEN-TWENTY SYSTEM OF ELECTRODE PLACEMENT WAS PERFORMED. The waking background is a 9 hertz alpha frequency. The patient remained awake throughout the study. Photic stimulation was unremarkable. No epileptiform features were seen. IMPRESSION: THIS IS A NORMAL AWAKE EEG. Cloud Developer:[email or web address] Drywall Stripper: [email or web address] CAMPA
== END 2018-10-15 14:30 | DRG 207 ==
LOC: ERS 23:42 → CCU 09-29 02:14 → IMCU/EMU 10-07 12:32 → 2SE 10-08 17:07
PROVIDERS: ADMIT Student in an Organized Health Care Education/Training Program; ATTEND Student in an Organized Health Care Education/Training Program
PROC: 0BH17EZ Insertion of Endotracheal Airway into Trachea, Via Natural or Artificial Opening (ICD-10-PCS; principal; 2018-09-29)
PROC: 5A1955Z Respiratory Ventilation, Greater than 96 Consecutive Hours (ICD-10-PCS; 2018-09-29)
PROC: 02HV33Z Insertion of Infusion Device into Superior Vena Cava, Percutaneous Approach (ICD-10-PCS; 2018-09-29)
DX: J96.21 Acute and chronic respiratory failure with hypoxia (principal); G93.41 Metabolic encephalopathy; I50.33 Acute on chronic diastolic (congestive) heart failure; J18.9 Pneumonia, unspecified organism; I13.0 Hypertensive heart and chronic kidney disease with heart failure and stage 1 through stage 4 chronic kidney disease, or unspecified chronic kidney disease; J44.1 Chronic obstructive pulmonary disease with (acute) exacerbation; I47.2 Ventricular tachycardia; N39.0 Urinary tract infection, site not specified; N17.9 Acute kidney failure, unspecified; I42.9 Cardiomyopathy, unspecified; J44.0 Chronic obstructive pulmonary disease with (acute) lower respiratory infection; Z51.5 Encounter for palliative care; G40.909 Epilepsy, unspecified, not intractable, without status epilepticus; N18.3 Chronic kidney disease, stage 3 (moderate); E87.6 Hypokalemia; I95.9 Hypotension, unspecified; R53.81 Other malaise; M51.36 Other intervertebral disc degeneration, lumbar region; E78.00 Pure hypercholesterolemia, unspecified; B96.89 Other specified bacterial agents as the cause of diseases classified elsewhere; Z96.659 Presence of unspecified artificial knee joint; D63.1 Anemia in chronic kidney disease; M79.7 Fibromyalgia; F32.9 Major depressive disorder, single episode, unspecified; I48.2 Chronic atrial fibrillation; F41.9 Anxiety disorder, unspecified; G47.33 Obstructive sleep apnea (adult) (pediatric); K21.9 Gastro-esophageal reflux disease without esophagitis; Z90.49 Acquired absence of other specified parts of digestive tract; Z79.01 Long term (current) use of anticoagulants; Z95.810 Presence of automatic (implantable) cardiac defibrillator; Z98.42 Cataract extraction status, left eye; Z98.41 Cataract extraction status, right eye; Z88.6 Allergy status to analgesic agent; Z88.2 Allergy status to sulfonamides; Z88.8 Allergy status to other drugs, medicaments and biological substances; I27.20 Pulmonary hypertension, unspecified; J96.22 Acute and chronic respiratory failure with hypercapnia
CPT/HCPCS: 31500; 36415; 36556; 51702; 70450; 71045; 80048; 80053; 80185; 81001; 82247; 82248; 82550; 82728; 82805; 83540; 83550; 83605; 83735; 83880; 84100; 84145; 84146; 84300; 84443; 84484; 84540; 85007; 85025; 85027; 87070; 87077; 87086; 87186; 87205; 87899; 93005; 93306; 94002; 94003; 94640; 95816; 95819; 96365; 96366; 96375; J1120; J1650; J1940; J1953; J1956; J2185; J2250; J2704; J2765; J2916; J2920; J2930; J3010; J3480; J3490; J7512; J7620; Q0162; Q2009; S0028